=== PATIENT | male | born 1950 | race Caucasian/White ===

== ENCOUNTER → 2017-07-05 10:56 | Outpatient (CLI) | payer MEDICARE, OTHER, SELFPAY ==
[2017-07-05 11:07] LABS: Bacteria 0 SEEN /hpf (None Seen); Red Blood Cells-Urine 0 SEEN /hpf (0-5); White Blood Cells 0 SEEN /hpf (0-5)
--- NOTE | 2017-07-05 11:45 | RAD_ITS ---
STUDY: X-RAY CHEST REASON FOR EXAM: Male, 66 years old. Shortness of breath TECHNIQUE: Frontal and lateral views of the chest were obtained. COMPARISON: Chest radiograph report dated February 25, 2017 FINDINGS: The lungs are hyperinflated. There are no focal airspace opacities. There is no demonstrated pleural abnormality. The cardiac silhouette is normal in size. The mediastinum and hilar regions are unremarkable. Normal visualized pulmonary arteries. Normal visualized aortic arch and descending thoracic aorta. Sternotomy wires are present. There are diffuse degenerative changes of the visualized spine. The visualized ribs, clavicles, and shoulders are unremarkable. There is no demonstrated abnormality of the visualized upper abdomen. RAD/Chest PA and Lateral IMPRESSION: No acute cardiopulmonary abnormalities. Hyperinflation suggests COPD. Electronically Signed: Emily Freire MD at 0:40 EST Tel Direct: [phone], Service support ,
--- NOTE | 2017-07-05 11:55 | RAD_ITS ---
STUDY: X-RAY - ABDOMEN/PELVIS REASON FOR EXAM: Male, 66 years old. Abdominal pain TECHNIQUE: Supine and upright views of the abdomen and pelvis were obtained. COMPARISON: None. FINDINGS: The lung bases are unremarkable. There is an unremarkable bowel gas pattern. There is no demonstrated free abdominal air. There is no demonstrated abnormality of the major organs. The soft tissues are unremarkable. There are moderate degenerative changes in the visualized spine. RAD/Abd Inc Decub and/or Erect IMPRESSION: No acute abnormalities are seen in the abdomen or pelvis. Electronically Signed: Emily Freire MD at 16:57 EST Tel Direct: [phone], Service support ,
[2017-07-05 12:21] LABS: Absolute Lymphocyte Count 2.21 X10^3/ul (0.83-4.51); Absolute Neutrophil Count 3.5 X10^3/uL (2.0-7.7); Basophil# 0.05 X10^3/uL; Basophil% 0.7 % (0-1); Eosinophil# 0.27 X10^3/uL; Hematocrit 42.9 % (40-54); Hemoglobin 14.5 g/dl (13.0-16.5); Lymphocyte # 2.21 X10^3/ul (4.0); Lymphocyte % 32.6 % (19-41); Mean Corp Hgb Conc 33.8 g/gl (32-36); Mean Corpuscular Hgb 31.5 pg (27.0-32.0); Mean Corpuscular Volume 93.1 fL (80-94); Mean Platelet Vol. 10.8 fl (6.2-12.0); Monocyte% 10.3 % (0-10); Neutrophil # 3.52 X10^3/uL (2.7-7.7); Neutrophil % 52.1 % (47-70); Platelet Count 160 K/mm3 (150-450); RBC Distribution Width CV 14.3 % (11.6-14.6); RBC Distribution Width SD 47.3 fl (35.1-43.9); Red Blood Count 4.61 M/mm3 (4.6-6.2); White Blood Count 6.8 K/mm3 (4.4-11.0)
[2017-07-05 12:29] LABS: POSITIVE COUNT NO; POSITIVE DIFFERENTIAL NO; POSITIVE MORPHOLOGY NO
[2017-07-05 12:30] LABS: Color, Urine Yellow (Yellow); Glucose, Dipstick Normal (Normal); Ketone-Dipstick Negative (Negative); Leukocyte Esterase-Dipstick Negative /ul (Negative); Nitrite-Dipstick Negative (Negative); Occult Blood-Urine Negative /ul (Negative); Protein-Dipstick Negative (Negative); Specific Gravity, Urine 1.025 (1.002-1.030); Urine Bilirubin Dipstick Negative (Negative); Urine Clarity Clear (Clear); Urine Urobilinogen Normal (Normal)
[2017-07-05 12:46] LABS: Microalbumin:Creatinine Ratio 97.8 mg/g CRE (<30 mg/g CRE)
[2017-07-05 12:48] LABS: Mucous, Urine 1+ /hpf (<or=2+); Squamous Epithelial Cells - UA 0-5 SEEN /hpf (0-5)
[2017-07-05 13:13] LABS: AST(SGOT) 38 U/L (15-37); Alanine Aminotransfer ALT/SGPT 53 U/L (16-61); Albumin, Serum 3.9 g/dL (3.2-5.0); Alkaline Phosphatase 37 U/L (45-117); Anion Gap 7 (5-15); BUN 18 mg/dL (7-18); BUN/Creat Ratio 15.5 RATIO (10-20); Calcium,Total 8.9 mg/dL (8.5-10.1); Chloride 105 mmol/L (98-107); Creatinine, Serum 1.16 mg/dL (0.70-1.30); EST Glomerular Filtration Rate 67 mL/min (>60); Est Glom Filt Rate - Afr Amer 81 mL/min (>60); Globulin 3.8 g/dL (2.2-4.2); Glucose 87 mg/dL (74-106); Lipase 152 U/L (73-393); Magnesium 2.3 mg/dL (1.6-2.6); Protein, Total 7.7 g/dL (6.4-8.2); Sodium Level 139 mmol/L (136-145); Thyroid Stim Hormone (TSH) 0.66 uIU/mL (0.358-3.74)
== END ==
PROVIDERS: Family Provider Family Medicine; PCP Family Medicine; Visit Provider Family Medicine
DX: R06.02 Shortness of breath (principal); R14.0 Abdominal distension (gaseous); R31.9 Hematuria, unspecified; I10 Essential (primary) hypertension
CPT/HCPCS: 36415; 71046; 74019; 80053; 81001; 82043; 82570; 83690; 83735; 84443; 85025

== ENCOUNTER → 2017-08-19 07:49 | Outpatient (CLI) | payer MEDICARE, OTHER, SELFPAY ==
--- NOTE | 2017-08-19 16:38 | PFTCOMP ---
COMPLETE PULMONARY FUNCTION TEST INTERPRETATION Brief HPI: Patient is a 67 year old male, currently under the care of Dr. Rivera, who presents to [facility] for complete pulmonary function tests secondary to diagnosis of dyspnea. Respiratory therapist reports good effort and reproducible results. Interpretation: Forced expiration spirometry shows no large airways obstructive ventilatory defect with an FEV1 of 94 % predicted. There is no significant bronchodilator response by ATS criteria. Spirograms are of good quality and plateau normally. The respiratory flow volume loop shows a normal pattern. Lung volumes by body plethysmography show a normal total lung capacity at 6.9 L, 105% predicted. All other lung volumes are within normal limits. Diffusion capacity by carbon monoxide is normal at 81% predicted. The airway resistance is normal. No previous pulmonary function tests were available for review. Impression: These pulmonary function tests are grossly within normal limits. Consider methacholine challenge if asthma is a consideration.
== END ==
PROVIDERS: Family Provider Family Medicine; PCP Family Medicine; Visit Provider Family Medicine
DX: R06.02 Shortness of breath (principal)
CPT/HCPCS: 94060; 94726; 94729

== ENCOUNTER → 2019-07-06 07:01 | Outpatient (CLI) | payer MEDICARE, OTHER, SELFPAY ==
[2018-06-10 14:21] VITALS: BMI 31.5
[2019-07-06 07:44] LABS: Hemoglobin 15.3 g/dL (13.0-16.5); Mean Corp Hgb Conc 32.6 g/dL (32-36); Mean Corpuscular Hgb 30.2 pg (27.0-32.0); Mean Corpuscular Volume 92.9 fL (80-94); Mean Platelet Vol. 10.5 fl (6.2-12.0); Platelet Count 157 K/mm3 (150-450); RBC Distribution Width SD 47.4 fl (35.1-43.9); Red Blood Count 5.06 M/mm3 (4.6-6.2); White Blood Count 7.6 K/mm3 (4.4-11.0)
[2019-07-06 08:02] LABS: AST(SGOT) 18 U/L (15-37); Alanine Aminotransfer ALT/SGPT 32 U/L (16-61); Albumin, Serum 3.8 g/dL (3.2-5.0); Alkaline Phosphatase 35 U/L (45-117); Anion Gap 4 (5-15); BUN 26 mg/dL (7-18); Bilirubin, Direct 0.11 mg/dL (0.00-0.30); CPK Total, Creatine Kinase 92 U/L (39-308); Calcium,Total 9.1 mg/dL (8.5-10.1); Chloride 107 mmol/L (98-107); Cholesterol 266 mg/dL (200); EST Glomerular Filtration Rate 59 mL/min (>60); Est Glom Filt Rate - Afr Amer 71 mL/min (>60); Glucose 107 mg/dL (74-106); High Density Lipoprotein 50 mg/dL; Potassium 4.5 mmol/L (3.5-5.1); Protein, Total 7.8 g/dL (6.4-8.2); Sodium Level 140 mmol/L (136-145); Triglycerides 167 mg/dL; Very Low Density Lipoprotein 33 mg/dL (5-40)
[2019-07-06 08:59] LABS: BNP,B-Type NATRIURETIC PEPTIDE 36.8 pg/mL (0-100)
== END ==
PROVIDERS: PCP Family Medicine; Referring Provider Internal Medicine Cardiovascular Disease; Visit Provider Internal Medicine Cardiovascular Disease
DX: R06.09 Other forms of dyspnea (principal); I25.10 Atherosclerotic heart disease of native coronary artery without angina pectoris; E78.5 Hyperlipidemia, unspecified; I10 Essential (primary) hypertension
CPT/HCPCS: 36415; 80048; 80061; 80076; 82550; 83880; 85027

== ENCOUNTER → 2020-02-04 07:39 | Outpatient (CLI) | payer MEDICARE, OTHER, SELFPAY ==
[2020-01-07 13:54] VITALS: BMI 31.5
[2020-02-04 08:24] LABS: Hematocrit 42.2 % (40-54); Hemoglobin 13.7 g/dL (13.0-16.5); Mean Corp Hgb Conc 32.5 g/dL (32-36); Mean Corpuscular Hgb 30.9 pg (27.0-32.0); Mean Corpuscular Volume 95.3 fL (80-94); Mean Platelet Vol. 10.1 fl (6.2-12.0); Platelet Count 183 K/mm3 (150-450); RBC Distribution Width CV 13.2 % (11.6-14.6); RBC Distribution Width SD 45.6 fl (35.1-43.9); Red Blood Count 4.43 M/mm3 (4.6-6.2); White Blood Count 6.1 K/mm3 (4.4-11.0)
[2020-02-04 08:46] LABS: BNP,B-Type NATRIURETIC PEPTIDE 54.3 pg/mL (0-100)
[2020-02-04 08:50] LABS: AST(SGOT) 20 U/L (15-37); Alanine Aminotransfer ALT/SGPT 32 U/L (16-61); Albumin, Serum 3.6 g/dL (3.2-5.0); Alkaline Phosphatase 33 U/L (45-117); Anion Gap 4 (5-15); BUN 19 mg/dL (7-18); BUN/Creat Ratio 16.8 RATIO (10-20); Bilirubin, Direct 0.13 mg/dL (0.00-0.30); CPK Total, Creatine Kinase 91 U/L (39-308); Calcium,Total 9.3 mg/dL (8.5-10.1); Chloride 107 mmol/L (98-107); Cholesterol 145 mg/dL (200); Creatinine, Serum 1.13 mg/dL (0.70-1.30); EST Glomerular Filtration Rate 69 mL/min (>60); Est Glom Filt Rate - Afr Amer 83 mL/min (>60); Globulin 3.8 g/dL (2.2-4.2); Glucose 91 mg/dL (74-106); High Density Lipoprotein 47 mg/dL; Potassium 4.3 mmol/L (3.5-5.1); Protein, Total 7.4 g/dL (6.4-8.2); Sodium Level 141 mmol/L (136-145); Triglycerides 106 mg/dL; Very Low Density Lipoprotein 21 mg/dL (5-40)
== END ==
PROVIDERS: PCP Family Medicine; Referring Provider Internal Medicine Cardiovascular Disease; Visit Provider Internal Medicine Cardiovascular Disease
DX: I10 Essential (primary) hypertension (principal); I25.10 Atherosclerotic heart disease of native coronary artery without angina pectoris; R06.09 Other forms of dyspnea; E78.5 Hyperlipidemia, unspecified
CPT/HCPCS: 36415; 80048; 80061; 80076; 82550; 83880; 85027

== ENCOUNTER 2020-06-01 14:00 | Outpatient (RCR) | payer MEDICARE, OTHER, SELFPAY ==
[2020-01-07 13:54] VITALS: BMI 31.5
--- NOTE | 2020-03-10 15:49 | HP.PTEVAL ---
Patient's Visit Information BASHIR HIDALGO is a 69 year old M referred to Physical Therapy by Dr. Az Billings, with a diagnosis of Right Shoulder Biceps Tenodesis and RTC Repair 01/20/20. Date of Evaluation: 03/10/20 Physical Therapist: Wihtney Sutton DPT - Visit Plan Frequency: 3x /Week Duration: 3 Weeks Plan: Right RTC Repair with Biceps Tenodesis 01/20/2020- Active and Passive ROM- no strengthening at this time per MD recommendation. HEP Given IE: Postural education, upper trap and levator stretching, table walk aways, elbow flexion/extn active - Subjective Right Shoulder Biceps Tenodesis and RTC Repair 01/20/[address] Billings. He did not have a tramatic tear just wear and tear- the shoulder has been bad for years. In the last 2 weks he has been getting in the hot tub and letting the water float his shoulder to the top of the water into both flexion and abduction. No sling at home. Worst: 6/10 Agg: moving it around Best: 310 Eases: getting in the hot tub and moving it around with the water- is not icing. Describes the pain as stabbing and other times its a dull tooth ache. Upper trap pain is more a little off of sharp and its constant. Sling not in the home. Right hand dominate. Pain is in the anterior shoulder and radiates to the elbow and and up into the upper trap. No N/T but does report that his right thumb bothers him. No blurred vision, dizziness. Has been having a lot of headaches- more since surgery. 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 No problems with finger dexterity- has been squeezing a ball. Sleep: disturbed- couch, bed and chair depends on the night and moves around. PMHx: VT (5 years ago) quadrupe bipass (5 stents- 5 years ago) Meds: Lisinopril, pantoprazole sodium, atorvastatin calciu, Brilinta, Metroprolol. - Objective Posture: FH, RS, increased kyphosis- guarding of the right UE- sling with pillow. Palpation: tender along upper trap, cervical paraspinals, infraspinatus, bicipital groove. Sensation: WNL. Observation: incision healing wells- no s/s of infection. ROM: AROM Flexion: 30 degrees abd: 40 degrees, IR: to belly ER: neutral, Elbow/Wrist: WNL. PROM: Flexion: 110 degreees, Abd: 90 degrees ER: neutral IR: belly. Strength: Plastic Surgery Technician: 40 Elbow: 4/5, Wrist: 5/5 - Goals Goal 1:: Patient will be I with HEP and progression Goal Time Frame: 4-6 Weeks Goal 2:: Patient will demo full AROM of the right shoulder Goal Time Frame: 4-6 Weeks Goal 3:: Patient will maintain proper posture t/o tx session to demo increased scap s/s (as per MD recommendations) Goal Time Frame: 4-6 Weeks Goal 4:: Patient will report no pain for 1 week Goal Time Frame: 4-6 Weeks Goal 5:: Patient will return to all normalized ADL's and work related activities (as per MD recommendations) - Rehabilitation Potential Physical Therapy Diagnosis: Patient presents with hypomobility s/p right shoulder surgery 01/20/2020- he has decreased ROM,strength and muscular endurance leading to poor posture and limiting his ADL's and work related tasks Rehabilitation Potential: Good - Anticipated Interventions Patient/Client Instruction: Educate patient on: Benefits of Fitness Program Therapeutic Exercise to Include: Strength training, Endurance training, Body mechanics, Postural training, Flexibilty training, Neuromotor development, Passive ROM, Active ROM, Dynamic Lumbar Stabilization, Scapular Strength/Stabilization Comment: as allowed by MD For the Purpose of:: To improve muscle performance and motor function Manual Therapy Techniques to Include: Passive ROM, Soft tissue mobilization For the Purpose of:: To increase ROM TENS: Yes Cryotherapy (ice pack, ice massage): Yes Thermo therapy (hot pack): Yes Ultrasound (thermal/non thermal): No Thank you for the opportunity to evaluate your patient. For Medicare and Medicare HMO plans, please review the plan of care and approve it. It will need to be FAXED BACK to us at [phone] for Medicare purposes. For Medicare only, by signing this I certify the plan of care. Please let me know if there are questions or concerns regarding this plan of care. Physician Signature: Date:
--- NOTE | 2020-04-04 17:24 | HP.PTREVAL ---
Dr. Az Billings, DO, It has been my pleasure to treat BASHIR HIDALGO over the last 10 visits for Right Shoulder Biceps Tenodesis and RTC Repair 01/20/20. Please see the progress note below for an update on the physical therapy plan of care! Subjective: Patient reports that he has been pretty sore over the last week- they used the thumper on his shoulder and its been a little better since last session. Pain at this point is on the upper trap and tip of the AC joint. Describes the pain as hard if he moves it wrong and more mild when he gets it rest. Doesn't like him to reach out and go up or lean over on the couch. He has little to no pain when he helps the arm up but when he uses the muscles it bothers him. Goes back to [place] on Saturday. Objective/Function: Posture: FH, RS, increased kyphosis- guarding of the right UE- no sling. Palpation: tender along upper trap, and AC joint. Sensation: WNL. ROM: AROM Flexion: 70 degrees abd: 80 degrees, IR: belt line ER: 30 Elbow/Wrist: WNL. Strength: Isometric shoulder at neutral: 4-/5Elbow: 4+/5, Wrist: 5/5 Plan Plan: Right RTC Repair with Biceps Tenodesis 01/20/2020- Active and Passive ROM- no strengthening at this time per MD recommendation. HEP Given IE: Postural education, upper trap and levator stretching, table walk aways, elbow flexion/extn active Goals Goal 1:: Patient will be I with HEP and progression Goal Time Frame: 4-6 Weeks Goal Progress: Progressing Goal 2:: Patient will demo full AROM of the right shoulder Goal Time Frame: 4-6 Weeks Goal Progress: Progressing Goal 3:: Patient will maintain proper posture t/o tx session to demo increased scap s/s (as per MD recommendations) Goal Time Frame: 4-6 Weeks Goal Progress: Progressing Goal 4:: Patient will report no pain for 1 week Goal Time Frame: 4-6 Weeks Goal Progress: Progressing Goal 5:: Patient will return to all normalized ADL's and work related activities (as per MD recommendations) Goal Progress: Progressing Anticipated Interventions Patient/Client Instruction: Educate patient on: Benefits of Fitness Program Therapeutic Exercise to Include: Strength training, Endurance training, Body mechanics, Postural training, Flexibilty training, Neuromotor development, Passive ROM, Active ROM, Dynamic Lumbar Stabilization, Scapular Strength/Stabilization Comment: as allowed by MD For the Purpose of:: To improve muscle performance and motor function Manual Therapy Techniques to Include: Passive ROM, Soft tissue mobilization For the Purpose of:: To increase ROM TENS: Yes Cryotherapy (ice pack, ice massage): Yes Thermo therapy (hot pack): Yes Ultrasound (thermal/non thermal): No Please do not hesitate to contact me at [phone] by phone or if you have questions or concerns regarding this new plan of care! Sincerely, JEFFERSON JoseT
--- NOTE | 2020-04-27 09:38 | HP.PTREVAL_ITS ---
Dr. Az Billings, DO, It has been my pleasure to treat BASHIR HIDALGO over the last 19 visits for Right Shoulder Biceps Tenodesis and RTC Repair 01/20/20. Please see the progress note below for an update on the physical therapy plan of care! Subjective: Just came from work this morning, not enough to do there, so came in early! Still cannot reach top shelf. Overall doing OK. Doctor was happy with progress at last f/u. Sees again end April. No current precautions. Pain is 2/10 at times, Had a 5/10 yesterday lifting box in front of janusz dn it was heavy. Cannot reach top shelf at home or wrok, thinks it is week. Toss and turn at night quite often. Life pretty normal at home outside of reaching up. Doing everything at work that he needs to do, gets up on footstool to reach to[ shelf. Is R handed. Pulling on band at home. Doing exercises at home with band pulls and ROM daily. Signed up for membership for legs. Not sure what to do for UE. Doing band 2x10 2x/day YTB. Objective/Function: PROM well wFL at 150 flexion and abduction, 75 ext rotation and 60 IR. AROM Worse against gravity at 90 felxion and abd limited by pain anterior shoulder.65 ect rotation and L5 IR. Strength is still weak at 3- flexiona dn abd, 3+ ext rotation adn 4-IR consistent with delayed strength recommended by doctor. Overall needs to be stronger and take care with overdoing work/home activities. Appropriate to continue for strength with fair prognosis. Plan Plan: 3x/week for 3 weeks for. 1. ensure AROM improving. 2. Progress RC and scap strength. Give rotations via HEP. 3. 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 Goals Goal 1:: Patient will be I with HEP and progression Goal Time Frame: 4-6 Weeks Goal Progress: initial, not gym,a pprop. Goal 2:: Patient will demo full AROM of the right shoulder Goal Time Frame: 4-6 Weeks Goal Progress: Progressing, approp Goal 3:: Patient will maintain proper posture t/o tx session to demo increased scap s/s (as per MD recommendations) Goal Time Frame: 4-6 Weeks Goal Progress: Goal Met Goal 4:: Patient will report no pain for 1 week Goal Time Frame: 4-6 Weeks Goal Progress: -07/06,a pprop Goal 5:: Patient will return to all normalized ADL's and work related activities (as per MD recommendations) Goal Progress: not reach OH. Goal 6:: I approp gym based ex program without increased pain to help with AROM and function OH. Goal Time Frame: 2-4 Weeks Goal Progress: NEW GOAL Anticipated Interventions Patient/Client Instruction: Educate patient on: Benefits of Fitness Program Therapeutic Exercise to Include: Strength training, Endurance training, Body mechanics, Postural training, Flexibilty training, Neuromotor development, Pa ssive ROM, Active ROM, Dynamic Lumbar Stabilization, Scapular Strength/Stabilization Comment: as allowed by MD For the Purpose of:: To improve muscle performance and motor function Manual Therapy Techniques to Include: Passive ROM, Soft tissue mobilization For the Purpose of:: To increase ROM TENS: Yes Cryotherapy (ice pack, ice massage): Yes Thermo therapy (hot pack): Yes Ultrasound (thermal/non thermal): No Please do not hesitate to contact me at [phone] by phone or if you have questions or concerns regarding this new plan of care! Sincerely, Yanick Juarez, DPT, OCS, CSCS
--- NOTE | 2020-06-01 14:05 | HP.PTDCSUM ---
It has been my pleasure to treat BASHIR HIDALGO referred by Dr. Az Billings DO, with the diagnosis of Right Shoulder Biceps Tenodesis and RTC Repair 01/20/20 for a total of 30 visit(s). Discharge Date: Please see the following information for a summary of their discharge status. Subjective: Patient reports that the shoulder is working a lot better than it should. He needs his shoulder to quit hurting so he can sleep. He is also challenged to lift overhead at work but that has improved a little bit. Patient reports that he can do this independently. He goes back to the surgeon for his arm on Saturday. He has numbness in his fingers Right shldr Pain Intensity (Out of 10): 2 % Improvement: 80 Objective/Function: Posture: good throughout session. Palpation: not tender to palpation. AROM: Flexion: 150 degrees Abd: 90 degrees limited by pain anterior shoulder, ER: 65 degrees IR: L3. Strength: Flexion: 4-/5 Abd: 4- ext rotation IR:4/5 Elbow: 4+/5 Goal 1:: Patient will be I with HEP and progression Goal Progress: initial, not gym,a pprop. Goal 2:: Patient will demo full AROM of the right shoulder Goal Progress: Progressing, approp Goal 3:: Patient will maintain proper posture t/o tx session to demo increased scap s/s (as per MD recommendations) Goal Progress: Goal Met Goal 4:: Patient will report no pain for 1 week Goal Progress: -07/06,a pprop Goal 5:: Patient will return to all normalized ADL's and work related activities (as per MD recommendations) Goal Progress: not reach OH. Goal 6:: I approp gym based ex program without increased pain to help with AROM and function OH. Goal Progress: NEW GOAL Plan: Discharge to indpendent home exercise program in the gym with health and wellness. If there are questions or concerns regarding this patient's physical therapy, please feel free to call me at [phone]. Thank you for the referral of this patient. Sincerely, JEFFERSON JoseT
== END 2020-06-01 19:00 | disposition home or self-care (01) ==
LOC: PT 14:00
PROVIDERS: PCP Family Medicine; Referring Provider Orthopaedic Surgery; Visit Provider Orthopaedic Surgery
DX: Z47.89 Encounter for other orthopedic aftercare (principal); S43.421D Sprain of right rotator cuff capsule, subsequent encounter; S43.431D Superior glenoid labrum lesion of right shoulder, subsequent encounter; M75.41 Impingement syndrome of right shoulder; M19.011 Primary osteoarthritis, right shoulder; M94.211 Chondromalacia, right shoulder
CPT/HCPCS: 97110; 97140; 97161; 97164

== ENCOUNTER → 2020-08-22 06:25 | Outpatient (CLI) | payer MEDICARE, OTHER, SELFPAY ==
[2020-03-21 16:02] VITALS: BMI 32.1
[2020-08-22 07:01] LABS: Hematocrit 45.5 % (40-54); Hemoglobin 14.4 g/dL (13.0-16.5); Mean Corp Hgb Conc 31.6 g/dL (32-36); Mean Corpuscular Hgb 29.5 pg (27.0-32.0); Mean Corpuscular Volume 93.2 fL (80-94); Mean Platelet Vol. 10.5 fl (6.2-12.0); Platelet Count 150 K/mm3 (150-450); RBC Distribution Width CV 13.4 % (11.6-14.6); Red Blood Count 4.88 M/mm3 (4.6-6.2); White Blood Count 6.8 K/mm3 (4.4-11.0)
[2020-08-22 07:32] LABS: AST(SGOT) 23 U/L (15-37); Alanine Aminotransfer ALT/SGPT 33 U/L (16-61); Albumin, Serum 3.6 g/dL (3.2-5.0); Alkaline Phosphatase 37 U/L (45-117); Anion Gap 5 (5-15); BUN 27 mg/dL (7-18); BUN/Creat Ratio 23.3 RATIO (10-20); Bilirubin, Direct 0.13 mg/dL (0.00-0.30); CPK Total, Creatine Kinase 191 U/L (39-308); Chloride 108 mmol/L (98-107); Cholesterol 158 mg/dL (200); Creatinine, Serum 1.16 mg/dL (0.70-1.30); EST Glomerular Filtration Rate 67 mL/min (>60); Est Glom Filt Rate - Afr Amer 81 mL/min (>60); Globulin 3.6 g/dL (2.2-4.2); Glucose 123 mg/dL (74-106); High Density Lipoprotein 44 mg/dL; Potassium 4.6 mmol/L (3.5-5.1); Protein, Total 7.2 g/dL (6.4-8.2); Sodium Level 140 mmol/L (136-145); Triglycerides 88 mg/dL; Very Low Density Lipoprotein 18 mg/dL (5-40)
[2020-08-22 08:02] LABS: BNP,B-Type NATRIURETIC PEPTIDE 43.8 pg/mL (0-100)
== END ==
PROVIDERS: PCP Family Medicine; Referring Provider Internal Medicine Cardiovascular Disease; Visit Provider Internal Medicine Cardiovascular Disease
DX: D69.6 Thrombocytopenia, unspecified (principal); I50.22 Chronic systolic (congestive) heart failure; I11.0 Hypertensive heart disease with heart failure; I25.10 Atherosclerotic heart disease of native coronary artery without angina pectoris; Z95.5 Presence of coronary angioplasty implant and graft; R06.09 Other forms of dyspnea; E78.5 Hyperlipidemia, unspecified
CPT/HCPCS: 36415; 80048; 80061; 80076; 82550; 83880; 85027

== ENCOUNTER → 2020-11-16 05:31 | Outpatient (CLI) | payer MEDICARE, OTHER, SELFPAY ==
[2020-03-21 16:02] VITALS: BMI 32.1
[2020-11-16 07:41] LABS: AST(SGOT) 26 U/L (15-37); Alanine Aminotransfer ALT/SGPT 33 U/L (16-61); Albumin, Serum 3.4 g/dL (3.2-5.0); Alkaline Phosphatase 45 U/L (45-117); CPK Total, Creatine Kinase 171 U/L (39-308); Cholesterol 160 mg/dL (200); Globulin 3.6 g/dL (2.2-4.2); High Density Lipoprotein 40 mg/dL; Triglycerides 199 mg/dL; Very Low Density Lipoprotein 40 mg/dL (5-40)
== END ==
PROVIDERS: PCP Family Medicine
DX: I25.10 Atherosclerotic heart disease of native coronary artery without angina pectoris (principal); E78.5 Hyperlipidemia, unspecified; E78.00 Pure hypercholesterolemia, unspecified
CPT/HCPCS: 36415; 80061; 80076; 82550

== ENCOUNTER 2020-11-22 23:53 | Emergency (ER) | payer MEDICARE, OTHER, SELFPAY ==
[2020-03-21 16:02] VITALS: BMI 32.1
[2020-11-22 23:53] VITALS: BP 132/81; PULSE 71; RESP 15; TEMP 36.6; O2SAT 100; BMI 31.5
--- NOTE | 2020-11-23 00:55 | RAD_ITS ---
STUDY: X-RAY - LEFT FOOT CLINICAL: Male, 70 years old. Injury/Pain TECHNIQUE: 3 view(s) of the foot. COMPARISON: None. FINDINGS: Plantar calcaneal spur and enthesophyte at the Achilles tendon insertion site. Otherwise normal talus, calcaneus, and tarsal bones. Normal visualized subtalar, talonavicular, calcaneocuboid, tarsal and tarsometatarsal articulations. Normal metatarsi. Normal metatarsophalangeal joint of the great toe. Normal tibial and fibular sesamoid bones. Normal interphalangeal joint of the great toe. Normal phalanges of the great toe. Normal second through fifth metatarsophalangeal joints. There is an oblique fracture involving the proximal phalanx of the fourth toe. Possible second fracture involving the proximal phalanx of the fifth toe versus artifact. The soft tissue structures are unremarkable. RAD/Foot min 3 Views IMPRESSION: Small phalangeal fracture at the level of the fourth toe. Possible nondisplaced fractures of the proximal phalanx of the fifth 2. No dislocation. Electronically Signed: Daniella Wright MD at 1:32 EDT , Service support ,
--- NOTE | 2020-11-23 00:55 | ED.VIS.FALL ---
HPI HPI - Fall History of Present Illness Chief Complaint: Fall Narrative Narrative: Patient injured his left foot. He stated he was going down some steps and his daughter was coming up. There was a bat in the house. He tripped and struck his left foot on the step. He fell backwards as well. Suffered a small bruise to his left elbow and right lower back. Did not hit his head. He is on Brilinta. Stated wanted to get his foot checked out. Has tenderness in the lateral foot as well as his diffuse toes. No home treatment. [facility] Medical History (Updated 11/23/20 @ 01:[address] Jeremy Aguilar MD) Back problem Carpal tunnel syndrome Cataracts, bilateral High cholesterol Hypertension Osteoarthritis Shoulder pain Home Medications aspirin 81 mg chewable tablet 81 mg PO DAILY 06/10/18 [History Last Taken Unknown] lisinopril 20 mg tablet 20 mg PO DAILY 06/10/18 [History Last Taken Unknown] ticagrelor 90 mg tablet 90 mg PO BID 06/10/18 [History Last Taken Unknown] metoprolol tartrate 50 mg tablet 25 mg PO BID tab 06/11/18 [History Last Taken Unknown] atorvastatin 40 mg tablet 80 mg PO DAILY tablet 09/16/20 [History Last Taken Unknown] pantoprazole 40 mg PO DAILY 11/23/20 [History Last Taken Unknown] Allergy/AdvReac Type Severity Reaction Status Date / Time prednisone Allergy Intermediate Flushing Verified 11/22/20 23:53 Family History Father Cancer Mother Hypertension Surgical History History of heart artery stent History of quadruple bypass History of right knee surgery History of shoulder surgery Social History Smoking Status: Former smoker alcohol intake: never substance use type: does not use what type of physical activity do you participate in: none ROS ROS ED ROS Narrative ROS General: Denies fever, chills, sweats Eyes: Denies visual changes, blurred vision, double vision ENT: Denies ear pain, rhinorrhea, sore throat Cardiovascular: Denies chest pain, palpitations, heart racing Respiratory: Denies dyspnea, cough, sputum, dyspnea on exertion, orthopnea,PND GI: Denies abdominal pain, nausea, vomiting, diarrhea, constipation, melena : Denies dysuria, hematuria, frequency Musculoskeletal: See HPI Skin: Denies rash, abscess, Neuro: Denies headache, weakness, paresthesia Psych: Denies depression, anxiety Endo: Denies polyuria, polydipsia, polyphagia Heme: Denies easy bruising, easy bleeding, lymphadenopathy Allergy: Denies hives, swelling EXAM Physical Exam Narrative Exam Narrative: Vital signs reviewed General: Well-nourished well-developed Head: Normocephalic atraumatic Eyes: Pupils equal round and reactive to light extraocular movements intact ENT: TMs clear no hemotympanum no trauma Neck: Nontender full range of motion Cardiovascular: Regular rate rhythm no murmurs normal S1-S2 Respiratory: No distress clear to auscultation bilaterally chest nontender Abdomen: Soft nontender nondistended normal bowel sounds no masses Back: Mild tenderness right lower back soft tissue. Normal range of motion. No CVA tenderness Extremities: Tender palpation left lateral metatarsal. Tender palpation diffuse toes. Small bruise to his third dorsal toe. Decreased range of motion secondary to pain. Small bruise to left inner elbow. Normal range of motion without pain. Skin: Normal color no trauma Neuro alert oriented cranial nerves II through XII intact normal strength sensation reflexes Const Vital Signs: 11/22/20 23:53 11/23/20 00:09 Temperature 97.8 F Temperature Source Temporal Pulse Rate 71 Respiratory Rate 15 Respiratory Effort Normal Non-Labored Blood Pressure 132/81 H Blood Pressure Mean 98 Pulse Ox 100 Oxygen Delivery Method Room Air MDM MDM MDM Narrative Medical decision making narrative: Declined pain medicine. Resting comfortably. I do not feel he needs imaging of his elbow or back. Imaging of the left foot obtained. X-ray shows a fracture to his fourth toe. Questionable fracture to the fifth however feel this is shadowing. This is by my interpretation. We will follow-up with podiatry. Gianni taped and given a postop shoe. Radiography Diagnostic Testing: Radiology Impression Foot X-Ray 11/23/20 00:55 IMPRESSION: Small phalangeal fracture at the level of the fourth toe. Possible nondisplaced fractures of the proximal phalanx of the fifth 2. No dislocation. Electronically Signed: Daniella Wright MD at 1:32 EDT , Service support , Discharge Plan Triage Chief Complaint: Fall ED Provider: Jeremy Aguialr Dx/Rx/DC Orders Clinical Impression: Closed fracture of toe Instructions: Fx Finger Toe Prescriptions: No Action lisinopril 20 mg tablet 20 mg PO DAILY RF: 0 aspirin [Etienne Chewable Aspirin] 81 mg tablet,chewable 81 mg PO DAILY RF: 0 Brilinta 90 mg tablet 90 mg PO BID RF: 0 metoprolol tartrate [Lopressor] 50 mg tablet 25 mg PO BID RF: 0 atorvastatin 40 mg tablet 80 mg PO DAILY RF: 0 pantoprazole 40 mg tablet,delayed release (DR/EC) 40 mg PO DAILY RF: 0 Primary Care Provider: Wayne Arteaga Referrals: Wayne Arteaga, [Primary Care Provider] - Jr Montanez DPM [STAFF PHYSICIAN] - Disposition Disposition: Home, Self Care
[2020-11-23] MEDS: HYDROcodone Bitartrate/Apap 5/325 Tablet PO (02:33)
[2020-11-23 02:42] VITALS: PULSE 78; RESP 16; O2SAT 98
== END 2020-11-23 02:44 | disposition home or self-care (01) ==
LOC: ED 11-23 01:47
PROVIDERS: Emergency Provider Emergency Medicine; PCP Family Medicine
DX: S92.502A Displaced unspecified fracture of left lesser toe(s), initial encounter for closed fracture (principal); S50.02XA Contusion of left elbow, initial encounter; S30.0XXA Contusion of lower back and pelvis, initial encounter; W10.9XXA Fall (on) (from) unspecified stairs and steps, initial encounter; Y93.9 Activity, unspecified; Y92.9 Unspecified place or not applicable; I10 Essential (primary) hypertension; H26.9 Unspecified cataract; E78.00 Pure hypercholesterolemia, unspecified; G56.03 Carpal tunnel syndrome, bilateral upper limbs; M19.90 Unspecified osteoarthritis, unspecified site; Z79.82 Long term (current) use of aspirin; Z79.899 Other long term (current) drug therapy; Z87.891 Personal history of nicotine dependence
CPT/HCPCS: 73630; 99283

== ENCOUNTER 2021-03-29 14:30 | Outpatient (RCR) | payer MEDICARE, OTHER, SELFPAY ==
--- NOTE | 2021-03-03 12:30 | HP.OTEVAL_ITS ---
Patient's Visit Information BASHIR HIDALGO is a 70 year old M, referred to Occupational Therapy by Dr. Az Billings DO, with a diagnosis of right CTS. Date of Evaluation: 03/02/21 Occupational Therapist: Luisa Patrick, FLO/Naa, CHT - Subjective This 70 year old male was seen for OT eval with dx of CTS-. pt had sx 01/25/21, pt states incision is very tender and when he tries to grab something he gets pain in his thumb. pt is right handed. several months of numbness prior to having CTR. pt works at [employer] working about 40 hours a week and would like to return to his PLOF. - Pain right hand 4 Pain Intensity Range: 3, 7 - ROM Wrist: right 45/40 left 70/65 ROM Comments: pt demo full composite fist of digits - Strength Personalized Living Manager Nurse: right 30# left 70# Lateral Pinch: right 6# left 12# Tripod Pinch: right 4# with pain left 12# - Sensation Thumb: right 3.84 left 3.22 Index: right 3.84 left 3.22 Middle: right 3.84 left 3.22 Ring: right 3.22 left 2.83 Little: right 3.22 left 2.83 - Quick DASH-Disab of Arm,Shoulder& Hand Quick DASH Score: 63.3325 - Goals Goal:: pt will demo a increase in right vice president business development strength by 30# or greater to return pt to PLOF by d/c Goal:: Pt will report pain no greater than 1/10 with use of affected hand with BADLs and IADLs by d/c. Goal:: Pt will demo understanding of scar mtg. by end of 2nd session to increase tissue extensibility to limit scar adhesions and allow full tendons function by d/c. Pt will demo a decrease is scar sensitivity to tolerate wearing long sleeve shirts by D/c. - Rehabilitation General Assessment: pt is 5 weeks and 1 day s/p from CTR of right hand- pt demo with weakness and scar sensitivity limiting functional use of right hand with ALDs and IADLs. pt would benefit from skilled OT 2x 4 weeks. Today therapist did remove residual scab and this reveled a embedded stich- therapy will cont. with removal as able. Therapist ed. pt on scar desensitization and ROM. Pt demo understanding and agree to POC. Rehabilitation Potential: Good - Anticipated Interventions Strengthening, Scar Care, Triggerpoint Release, Desensitization, Modalities, Joint Protection/Energy Conservation, Ergonomic Education, ADL Training, Education re assistive Equipment, Education re Diagnosis, Home Program - Visit Plan Frequency: 2-3x /Week Duration: 4 Weeks TEXT: Thank you for the opportunity to evaluate your patient. For Medicare and Medicare HMO plans, please review the plan of care and approve it. It will need to be FAXED BACK to us at [phone] for Medicare purposes. Please let me know if there are questions or concerns regarding this plan of care. Physician Signature: Date:
--- NOTE | 2021-03-29 14:46 | HP.OTDCSUM_ITS ---
It has been my pleasure to treat BASHIR HIDALGO under orders from Dr. Az Billings DO, for the diagnosis of right CTS for a total of 7 visit(s). Please see the following information for a summary of their discharge status. % Improvement: 85 Objective/Function: right wrist ROM 75/60. right refrigerating technician strength 50# increase from 30#. right lateral pinch 26# increase from 6#. right tripod pinch 22# increase from 4#. pt has made good gains in ROM and strength - pt has returned to work and states he is performing his tasks without difficulty. pt also reports he is sleeping without interruption from his hand. Patient Goals: Regain Strength, Decrease Pain, Return to Work Goal:: pt will demo a increase in right refrigerating technician strength by 30# or greater to return pt to PLOF by d/c Goal:: Pt will report pain no greater than 1/10 with use of affected hand with BADLs and IADLs by d/c. Goal:: Pt will demo understanding of scar mtg. by end of 2nd session to increase tissue extensibility to limit scar adhesions and allow full tendons function by d/c. Pt will demo a decrease is scar sensitivity to tolerate wearing long sleeve shirts by D/c. Plan: D/C Discharge Comments: pt was seen 7 OT visits that worked with scar desensitization, refrigerating technician and pinch strength. pt has make great gains in is ROM and strength. pt reports he has returned to working 7-8 hours a day. pt is happy he had sx done- pt demo understanding of recovery of sensation can take up to a year. If there are questions or concerns regarding this patient's occupational therapy, please fell free to call me at [phone]. Thank you for the referral of this patient. Sincerely, Luisa Patrick, OTR/L, CHT
== END 2021-03-29 14:51 | disposition home or self-care (01) ==
LOC: OT 14:30
PROVIDERS: PCP Family Medicine; Referring Provider Orthopaedic Surgery; Visit Provider Orthopaedic Surgery
DX: G56.01 Carpal tunnel syndrome, right upper limb (principal); Z47.89 Encounter for other orthopedic aftercare
CPT/HCPCS: 97035; 97110; 97165; 97530

== ENCOUNTER → 2021-05-18 | Outpatient (CLI) | payer MEDICARE, OTHER, SELFPAY | END | disposition home or self-care (01) | LOC: LABSPEC 09:28 | PROVIDERS: PCP Family Medicine; Referring Provider Physician Assistant; Visit Provider Physician Assistant | DX: R50.9 Fever, unspecified (principal) | CPT/HCPCS: 87635; U0005; U0003 ==

== ENCOUNTER → 2021-09-26 | Outpatient (CLI) | payer MEDICARE, OTHER, SELFPAY ==
--- NOTE | 2021-09-26 12:13 | CDU_ITS ---
Reason For Study: Carotid stenosis Rt. Velocities/BP Lt. Velocities/BP Prox CCA 57.8/10.8 cm/sec. Prox CCA 68.4/13.5 cm/sec. Mid CCA 60.8/11.3 cm/sec. Mid CCA 61.8/13.5 cm/sec. Dist CCA 59.7/12.4 cm/sec. Dist CCA 55.2/14.6 cm/sec. Prox ICA 87.6/15.1 cm/sec. Prox ICA 38.6/14.2 cm/sec. Mid ICA 47/16.3 cm/sec. Mid ICA 53.5/18.6 cm/sec. Dist ICA 55.6/16.3 cm/sec. Dist ICA 50.9/18.6 cm/sec. Rt. ICA/CCA = 1.48. Lt. ICA/CCA = 0.87. Prox ECA 102.3/11.4 cm/sec. Prox ECA 88.2/13.5 cm/sec. Rt. Vert. 28.2/10.7 cm/sec. Lt. Vert. 48.2/15.1 cm/sec. Right Extracranial There is intimal thickening but no significant atherosclerotic plaque noted in the right common carotid artery. There is heterogeneous, irregular atherosclerotic plaque noted in the right internal carotid artery. There is intimal thickening but no significant atherosclerotic plaque noted in the right external carotid artery. Antegrade flow is noted in the right vertebral artery. Left Extracranial There is homogeneous, smooth atherosclerotic plaque noted in the left common carotid artery. There is heterogeneous, irregular atherosclerotic plaque noted in the left internal carotid artery. There is intimal thickening but no significant atherosclerotic plaque noted in the left external carotid artery. Antegrade flow is noted in the left vertebral artery. Procedure Carotid Duplex 56807. This is a Carotid Duplex examination using B-mode, color flow and specral Doppler. Exam performed in department. VL/Carotid Duplex Ultrasound Interpretation Summary Mild (<50%) stenosis right extracranial internal carotid. Mild (<50%) stenosis left extracranial internal carotid. Flow within the vertebral arteries is antegrade bilaterally. Ordering Physician: Jon Roldan Referring Physician: Kevin Arteaga M.D. Performed By: Shama Ruiz RVT
== END | disposition home or self-care (01) ==
PROVIDERS: PCP Family Medicine; Referring Provider Ophthalmology; Visit Provider Ophthalmology
DX: H53.121 Transient visual loss, right eye (principal); I65.29 Occlusion and stenosis of unspecified carotid artery
CPT/HCPCS: 93880

== ENCOUNTER → 2021-10-05 | Outpatient (CLI) | payer MEDICARE, OTHER, SELFPAY ==
--- NOTE | 2021-10-05 11:26 | CT_ITS ---
STUDY: CT ABDOMEN AND PELVIS WITH CONTRAST REASON FOR EXAM: Male, 71 years old. One-week history of gross hematuria and right flank pain. RADIATION DOSAGE (If Supplied By Facility): CTDIvol = ( 20.91 ) mGy, DLP = ( 2246.60 ) mGycm TECHNIQUE: Transaxial images were obtained from the dome of the diaphragm to the symphysis pubis without oral contrast. IV 100mL Isovue-300 was administered. Sagittal and coronal images were reconstructed. Individualized dose optimization techniques were used for this CT. COMPARISON: None. FINDINGS: The visualized lung bases are unremarkable. Coronary artery calcification. There is decreased attenuation of the liver consistent with steatosis. Normal gallbladder and extrahepatic biliary system. Normal spleen. Normal pancreas. Normal bilateral adrenal glands. 1.8 cm cyst in the lower pole of the right kidney. 2.9 cm cyst in the upper pole of the left kidney. 1.2 cm cyst in the anterior lateral aspect of the midpole of the left kidney. Normal visualized stomach. Normal small intestine. There are multiple colonic diverticula consistent with diverticulosis. The appendix is visualized and appears normal. There is scattered atherosclerotic calcification of the abdominal aorta, without a demonstrated aneurysm. Normal inferior vena cava. Normal retroperitoneum. There is a 1.3 cm x 1.9 cm nodular mass at the base of the bladder more prominent on the right-sided of the midline. There is also evidence of focal mural thickening along the left lateral bladder wall. Correlation with endoscopy is recommended to rule out bladder carcinoma. There is enlargement of the prostate gland. The prostate measures 6 cm x 3.9 cm. This causes indentation at the bladder base. Normal abdominal wall. Disc space narrowing and spondylosis at the L4-L5 and L5-S1 levels. CT/Abdomen/Pelvis WITH Contrast IMPRESSION: 1.3 cm x 1.9 cm nodular mass at the base of the bladder as well as focal mural thickening along the left lateral wall. Correlation with endoscopy is recommended for further evaluation. Small bilateral renal cysts. Prostatic enlargement. Electronically Signed: Baljit Santoro MD at 12:13 EDT ,
[2021-10-05 11:41] LABS: CREATININE FINGERSTICK 0.9 mg/dL (0.70-1.30); EGFR FINGERSTICK > 60.0000 mL/min (>60)
== END | disposition home or self-care (01) ==
PROVIDERS: PCP Family Medicine; Visit Provider Nurse Practitioner Family
DX: R31.0 Gross hematuria (principal); R10.9 Unspecified abdominal pain; M53.9 Dorsopathy, unspecified; R73.9 Hyperglycemia, unspecified; G56.00 Carpal tunnel syndrome, unspecified upper limb; I10 Essential (primary) hypertension; Z12.5 Encounter for screening for malignant neoplasm of prostate
CPT/HCPCS: 36415; 74177; 80053; 80061; 81001; 83036; 84153; 84443; 85025; 87086; Q9967; G0103

== ENCOUNTER → 2021-10-05 | Outpatient (CLI) | payer MEDICARE, OTHER, SELFPAY ==
[2021-10-05 11:00] LABS: Mucous, Urine 0 SEEN /hpf (<or=2+)
[2021-10-05 12:19] LABS: Absolute Lymphocyte Count 1.93 X10^3/uL (0.83-4.51); Absolute Neutrophil Count 4.6 X10^3/uL (2.0-7.7); Basophil# 0.04 X10^3/uL; Basophil% 0.5 % (0-1); Eosinophil# 0.24 X10^3/uL; Eosinophils% 3.2 % (0-5); Hematocrit 40.5 % (40-54); Hemoglobin 13.1 g/dL (13.0-16.5); Lymphocyte # 1.93 X10^3/ul (0.83-4.51); Lymphocyte % 25.6 % (19-41); Mean Corp Hgb Conc 32.3 g/dL (32-36); Mean Corpuscular Hgb 30.8 pg (27.0-32.0); Mean Corpuscular Volume 95.3 fL (80-94); Mean Platelet Vol. 10.6 fl (6.2-12.0); Monocyte# 0.75 X10^3/uL; Monocyte% 9.9 % (0-10); NRBC Flagged by Analyzer 0 % (0-5); Neutrophil # 4.55 X10^3/uL (2.7-7.7); Neutrophil % 60.3 % (47-70); Platelet Count 166 K/mm3 (150-450); RBC Distribution Width CV 13.8 % (11.6-14.6); RBC Distribution Width SD 48.2 fl (35.1-43.9); Red Blood Count 4.25 M/mm3 (4.6-6.2); White Blood Count 7.6 K/mm3 (4.4-11.0)
[2021-10-05 12:27] LABS: Color, Urine Brown (Yellow); Glucose, Dipstick Normal (Normal); Ketone-Dipstick 5 mg/dl (Negative); Leukocyte Esterase-Dipstick 25 /ul (Negative); Nitrite-Dipstick Negative (Negative); Occult Blood-Urine 250 /ul (Negative); Protein-Dipstick 500 mg/dl (Negative); Urine Bilirubin Dipstick Negative (Negative); Urine Clarity Cloudy (Clear); Urine Urobilinogen Normal (Normal); Urine pH 6.5 (5.0 - 8.0)
[2021-10-05 12:33] LABS: Red Blood Cells-Urine > 100 SEEN /hpf (0-5); White Blood Cells 5-10 SEEN /hpf (0-5)
[2021-10-05 12:34] LABS: Bacteria 1+ /hpf (None Seen); Squamous Epithelial Cells - UA 0-5 SEEN /hpf (0-5)
[2021-10-05 12:50] LABS: ALB/GLOB Ratio 0.9 RATIO (0.9-2.4); AST(SGOT) 28 U/L (15-37); Alanine Aminotransfer ALT/SGPT 46 U/L (16-61); Albumin, Serum 3.4 g/dL (3.2-5.0); Alkaline Phosphatase 36 U/L (45-117); Anion Gap 4 (5-15); BUN 25 mg/dL (7-18); BUN/Creat Ratio 23.6 RATIO (10-20); Calcium,Total 9.1 mg/dL (8.5-10.1); Chloride 108 mmol/L (98-107); Cholesterol 111 mg/dL (200); Creatinine, Serum 1.06 mg/dL (0.70-1.30); EST Glomerular Filtration Rate 74 mL/min (>60); Est Glom Filt Rate - Afr Amer 89 mL/min (>60); Globulin 3.7 g/dL (2.2-4.2); Glucose 125 mg/dL (74-106); High Density Lipoprotein 38 mg/dL; Potassium 4.4 mmol/L (3.5-5.1); Protein, Total 7.1 g/dL (6.4-8.2); Sodium Level 138 mmol/L (136-145); Thyroid Stim Hormone (TSH) 0.43 uIU/mL (0.358-3.74); Triglycerides 132 mg/dL; Very Low Density Lipoprotein 26 mg/dL (5-40)
[2021-10-05 12:52] LABS: Hemoglobin A1c 5.7 % (3.8-5.6)
== END | disposition home or self-care (01) ==
LOC: BIMLAB 10:58
PROVIDERS: PCP Family Medicine; Referring Provider Nurse Practitioner Family; Visit Provider Nurse Practitioner Family
DX: R31.9 Hematuria, unspecified (principal); M53.9 Dorsopathy, unspecified; I10 Essential (primary) hypertension; R73.9 Hyperglycemia, unspecified; Z12.5 Encounter for screening for malignant neoplasm of prostate
CPT/HCPCS: 36415; 80053; 80061; 81001; 83036; 84153; 84443; 85025; 87086; G0103

== ENCOUNTER 2021-10-10 12:14 | Inpatient (IN) | payer MEDICARE, OTHER, SELFPAY ==
[2021-10-10] VITALS (9 sets, daily range): BP systolic 103–122; BP diastolic 66–86; PULSE 68–87; RESP 14–18; TEMP 36.2–36.6; O2SAT 97–99; BMI 34.4; BMI 32.0
--- NOTE | 2021-10-10 12:41 | EX.ED.GUMALE ---
HPI History of Present Illness Chief Complaint: Complaint Detail of Chief Complaint: Urinary retention and hematuria Informant: patient Narrative Narrative: Patient presents to the emergency department complaint of not being able to void since this morning. Patient states that he has had blood in his urine for about 2 weeks and has been passing clots for about a week. Patient saw his primary care physician and has a referral to urology on October 26. He does describe some dysuria. He denies fever. He denies nausea or vomiting. Patient is on Brilinta. Patient also takes aspirin. He denies any pain in his back. Prior similar symptoms: No [facility] Medical History (Updated 10/10/21 @ 14:[address] Thania De Los Santos, DO) Back problem Carpal tunnel syndrome Cataracts, bilateral Hematuria High cholesterol Hypertension Mass of bladder Osteoarthritis Right flank pain Shoulder pain Home Medications aspirin 81 mg chewable tablet 81 mg PO DAILY 06/10/18 [History Last Taken Unknown] lisinopril 20 mg tablet 20 mg PO DAILY 06/10/18 [History Last Taken Unknown] ticagrelor 90 mg tablet 90 mg PO BID 06/10/18 [History Last Taken Unknown] metoprolol tartrate 50 mg tablet 25 mg PO BID tab 06/11/18 [History Last Taken Unknown] atorvastatin 40 mg tablet 80 mg PO DAILY tablet 09/16/20 [History Last Taken Unknown] ezetimibe 10 mg tablet 10 mg PO DAILY 10/05/21 [History Last Taken Unknown] isosorbide mononitrate 60 mg tablet,extended release 24 hr 60 mg PO DAILY 10/05/21 [History Last Taken Unknown] mecobalamin (vitamin B12) 5,000 mcg lozenge 5,000 mcg PO DAILY 10/05/21 [History Last Taken Unknown] nitroglycerin 0.4 mg sublingual tablet 0.4 mg SUBLINGUAL Q5M PRN 10/05/21 [History Last Taken Unknown] pantoprazole 40 mg tablet,delayed release 40 mg PO DAILY #90 tab 10/05/21 [Rx Last Taken Unknown] tamsulosin 0.4 mg capsule 0.4 mg PO QHS #30 cap 10/05/21 [Rx Last Taken Unknown] Allergy/AdvReac Type Severity Reaction Status Date / Time prednisone Allergy Intermediate Flushing Verified 10/10/21 12:16 Family History Father Cancer Mother Hypertension Surgical History History of heart artery stent History of quadruple bypass History of right knee surgery History of shoulder surgery Social History Smoking Status: Former smoker alcohol intake: never substance use type: does not use what type of physical activity do you participate in: none ROS ROS ED Constitutional Constitutional ED: Reports systems reviewed and no addt'l complaints, except as documented; Denies body ache(s), change in weight or chills Eyes Eyes: Denies acute decrease in peripheral vision, change in vision, double vision or loss of vision ENT ENT ED: Reports none; Denies ear pain, lip swelling, loss taste/smell, neck pain, otalgia or sore throat Cardiovascular Cardiovascular: Reports none; Denies abdominal pain, chest pain with activity, leg edema, lightheadedness, palpitations, rapid heart rate or syncope Respiratory/Chest Respiratory/Chest: Reports none; Denies change in mental status, dry cough, dyspnea, hemoptysis, shortness of breath at rest or shortness of breath with exertion Gastrointestinal Gastrointestinal: Reports none and abdominal pain; Denies change in stool character, diarrhea, hematemesis, hematochezia, melena, rectal bleeding or vomiting Genitourinary Genitourinary ED: Reports none, dysuria and hematuria; Denies abdominal discomfort, anuria, genital pain or polyuria Musculoskeletal Musculoskeletal: Reports none; Denies arthralgias, back pain, difficulty walking, extremity pain, muscle weakness or myalgias Integumentary Reports none; Denies abscess or rash Neurologic Neurologic: Reports none; Denies abnormal gait, confusion, focal weakness, frequent falls, headache(s), loss of vision, numbness, paresthesias, radicular pain, vertigo or weakness Psychiatric Psychiatric: Reports systems reviewed and no addt'l complaints, except as documented and none; Denies behavioral changes, confusion, difficulty concentrating, hallucinations, suicidal ideation, tactile hallucinations or visual hallucinations Endocrine Endocrinology: Denies none, cold intolerance, excessive sweating, fatigue or heat intolerance Hematologic/Lymphatic Hematologic/Lymphatic: Reports none; Denies anemia, easy bleeding or easy bruising Allergic/Immunologic Allergic/Immunologic ED: Denies as per HPI, none, lip swelling, mouth swelling, throat swelling, tongue swelling or hives EXAM Physical Exam Const Vital Signs: 10/10/21 12:15 10/10/21 13:27 10/10/21 13:34 Temperature 97.7 F L Temperature Source Temporal Pulse Rate 87 69 Respiratory Rate 18 14 Blood Pressure 103/83 H 106/66 104/72 Blood Pressure Mean 89 79 82 Pulse Ox 97 98 99 Oxygen Delivery Method Room Air Room Air Room Air 10/10/21 14:02 Temperature Temperature Source Pulse Rate 85 Respiratory Rate 16 Blood Pressure 109/85 H Blood Pressure Mean 93 Pulse Ox 98 Oxygen Delivery Method Room Air Positive well nourished and well developed General Appearance ED: well developed and NAD HEENT Reports TM's clear and moist mucous membranes normocephalic and atraumatic; Negative for trauma or tenderness Tympanic Membrane ED: Yes TM's clear Eyes PERRL and EOMs intact bilaterally General Eye ED: Negative for pale conjunctiva or scleral icterus Neck no lymphadenopathy, supple and no JVD General: Negative for tenderness Chest Wall inspection of chest normal and palpation of chest normal Chest: Negative for tenderness Resp normal respiratory effort and clear to auscultation bilaterally Effort and Inspection: Negative for respiratory distress or pain with movement Auscultation: Negative for rhonchi, wheezes or diminished lung sounds Cardio regular rate, regular rhythm, S1 normal heart sound, S2 normal heart sound and no murmurs Peripheral Pulses: pulses 2+ throughout GI normal to inspection, nondistended, normoactive bowel sounds, soft to palpation, non-tender, non-distended and no masses GI Narrative: Patient isPatient with some tenderness over the suprapubic region. Guarding. There is no rebound or rigidity. Back/Spine no CVA tenderness and no thoracic nor lumbar tenderness Extremity normal to inspection General Extremety ED: Negative for edema General Extremity: Negative for edema Neuro oriented x3, CN's II-XII intact bilaterally, no sensory deficits noted and gait normal Sensorium / Orientation: awake, alert, oriented to person, oriented to place and oriented to time Motor Exam: strength 5/5 throughout and strength abnormal Psych mental status grossly normal Skin no rashes or lesions noted and no wounds MDM MDM MDM Narrative Medical decision making narrative: IV line established on arrival. Patient had a Whitman catheter placed and large amount of maroon-colored urine returned over 900 cc. I ordered bladder irrigation. Urinalysis showed red blood cells over 100 without signs of infection. CT scan with IV contrast was obtained was read by radiology as bladder wall thickening. Subsequently found out patient had a CT scan done on the 12th of this month which is 5 days ago as an outpatient which showed a bladder wall mass measuring 1.3 x 1.9 cm. Case discussed with urology who will admit patient for bladder irrigation and operative intervention. Lab Data Attestation: I reviewed the patient's lab results. Labs: Laboratory Results - last 24 hr 10/10/21 10/10/21 10/10/21 12:41 12:41 13:12 WBC 7.2 RBC 3.73 L Hgb 11.6 L Hct 35.1 L MCV 94.1 H MCH 31.1 MCHC 33.0 RDW Std Deviation 47.5 H RDW Coeff of Felix 13.7 Plt Count 138 L MPV 10.3 Immature Gran % (Auto) 0.300 Neut % (Auto) 62.2 Lymph % (Auto) 23.9 [place] % (Auto) 10.1 H Eos % (Auto) 2.9 Baso % (Auto) 0.6 Absolute Neuts (auto) 4.5 Absolute Lymphs (auto) 1.72 Nucleated RBC % 0 Sodium 135 L Potassium 4.4 Chloride 105 Carbon Dioxide 25.0 Anion Gap 5 BUN 28 H Creatinine 1.16 Estim Creat Clear Calc 62.06 Est GFR (MDRD) Af Amer 80 Est GFR (MDRD) Non-Af 66 BUN/Creatinine Ratio 24.1 H Glucose 103 Calcium 8.8 Urine Color Red Urine Clarity Cloudy Urine pH 5.0 Ur Specific [place] 1.015 Urine Protein 500 H Urine Glucose (UA) Normal Urine Ketones 5 H Urine Occult Blood 250 H Urine Nitrite Negative Urine Bilirubin Negative Urine Urobilinogen Normal Ur Leukocyte Esterase 25 H Urine RBC > 100 SEEN Urine WBC 0-5 SEEN Ur Squamous Epith Cells 0 SEEN Urine Bacteria 0 SEEN Urine Mucus 0 SEEN Radiography Diagnostic Testing: Clinical Impression(s) from Imaging Studies Abdomen/Pelvis CT 10/10/21 13:50 IMPRESSION: Diffuse fatty infiltration of the liver. Sigmoid diverticulosis. A WHIMTAN catheter is seen within the urinary bladder. Diffuse bladder wall thickening worse at the base of the bladder. Electronically Signed: Baljit Santoro MD at 14:25 EDT , Discharge Plan Triage Chief Complaint: Complaint ED Provider: Thania De Los Santos Dx/Rx/DC Orders Clinical Impression: Hematuria, Bladder mass, Acute urinary retention Prescriptions: No Action lisinopril 20 mg tablet 20 mg PO DAILY RF: 0 aspirin [Etienne Chewable Aspirin] 81 mg tablet,chewable 81 mg PO DAILY RF: 0 Brilinta 90 mg tablet 90 mg PO BID RF: 0 metoprolol tartrate [Lopressor] 50 mg tablet 25 mg PO BID RF: 0 atorvastatin 40 mg tablet 80 mg PO DAILY RF: 0 mecobalamin (vitamin B12) 5,000 mcg lozenge 5,000 mcg PO DAILY RF: 0 isosorbide mononitrate 60 mg tablet extended release 24 hr 60 mg PO DAILY RF: 0 ezetimibe 10 mg tablet 10 mg PO DAILY RF: 0 nitroglycerin 0.4 mg tablet, sublingual 0.4 mg sublingual Q5M PRNRF: 0 tamsulosin [Flomax] 0.4 mg capsule 0.4 mg PO QHS Qty: 30 RF: 1 pantoprazole 40 mg tablet,delayed release (DR/EC) 40 mg PO DAILY Qty: 90 RF: 3 Primary Care Provider: Wayne Arteaga Referrals: Wayne Arteaga, [Primary Care Provider] - Disposition Disposition: Acute Care [facility]
[2021-10-10 13:00] LABS: Absolute Lymphocyte Count 1.72 X10^3/uL (0.83-4.51); Absolute Neutrophil Count 4.5 X10^3/uL (2.0-7.7); Basophil# 0.04 X10^3/uL; Basophil% 0.6 % (0-1); Eosinophil# 0.21 X10^3/uL; Eosinophils% 2.9 % (0-5); Hematocrit 35.1 % (40-54); Hemoglobin 11.6 g/dL (13.0-16.5); Lymphocyte # 1.72 X10^3/ul (0.83-4.51); Lymphocyte % 23.9 % (19-41); Mean Corpuscular Hgb 31.1 pg (27.0-32.0); Mean Corpuscular Volume 94.1 fL (80-94); Mean Platelet Vol. 10.3 fl (6.2-12.0); Monocyte# 0.73 X10^3/uL; Monocyte% 10.1 % (0-10); NRBC Flagged by Analyzer 0 % (0-5); Neutrophil # 4.48 X10^3/uL (2.7-7.7); Neutrophil % 62.2 % (47-70); Platelet Count 138 K/mm3 (150-450); RBC Distribution Width CV 13.7 % (11.6-14.6); RBC Distribution Width SD 47.5 fl (35.1-43.9); Red Blood Count 3.73 M/mm3 (4.6-6.2); White Blood Count 7.2 K/mm3 (4.4-11.0)
[2021-10-10] MEDS: 0.9% Normal Saline 1,000 ML 150 ML IV ×2 (13:00→18:09)
[2021-10-10 13:06] LABS: Anion Gap 5 (5-15); BUN 28 mg/dL (7-18); BUN/Creat Ratio 24.1 RATIO (10-20); Calcium,Total 8.8 mg/dL (8.5-10.1); Chloride 105 mmol/L (98-107); Creatinine, Serum 1.16 mg/dL (0.70-1.30); EST Glomerular Filtration Rate 66 mL/min (>60); Est Glom Filt Rate - Afr Amer 80 mL/min (>60); Estimated Creatinine Clearance 62.06 ml/min; Glucose 103 mg/dL (74-106); Potassium 4.4 mmol/L (3.5-5.1); Sodium Level 135 mmol/L (136-145)
[2021-10-10 13:16] LABS: Bacteria 0 SEEN /hpf (None Seen); Mucous, Urine 0 SEEN /hpf (<or=2+); Squamous Epithelial Cells - UA 0 SEEN /hpf (0-5)
[2021-10-10 13:17] LABS: Color, Urine Red (Yellow); Glucose, Dipstick Normal (Normal); Ketone-Dipstick 5 mg/dl (Negative); Leukocyte Esterase-Dipstick 25 /ul (Negative); Nitrite-Dipstick Negative (Negative); Occult Blood-Urine 250 /ul (Negative); Protein-Dipstick 500 mg/dl (Negative); Specific Gravity, Urine 1.015 (1.002-1.030); Urine Bilirubin Dipstick Negative (Negative); Urine Clarity Cloudy (Clear); Urine Urobilinogen Normal (Normal)
[2021-10-10 13:33] LABS: Red Blood Cells-Urine > 100 SEEN /hpf (0-5); White Blood Cells 0-5 SEEN /hpf (0-5)
--- NOTE | 2021-10-10 13:50 | CT_ITS ---
STUDY: CT ABDOMEN AND PELVIS WITH CONTRAST REASON FOR EXAM: Male, 71 years old. Hematuria, abdominal pain RADIATION DOSAGE (If Supplied By Facility): CTDIvol = ( 19.26 ) mGy, DLP = ( 2303.58 ) mGycm TECHNIQUE: Transaxial images were obtained from the dome of the diaphragm to the symphysis pubis without oral contrast. IV 100mL Isovue-300 was administered. Sagittal and coronal images were reconstructed. Individualized dose optimization techniques were used for this CT. COMPARISON: Comparison is made with prior study dated 10/05/2021. FINDINGS: The visualized lung bases are unremarkable. Coronary artery calcification. There is decreased attenuation of the liver consistent with steatosis. Normal gallbladder and extrahepatic biliary system. Normal spleen. Normal pancreas. Normal bilateral adrenal glands. Stable bilateral renal cysts. Normal visualized stomach. Normal small intestine. There are multiple colonic diverticula consistent with diverticulosis. The appendix is visualized and appears normal. There is scattered atherosclerotic calcification of the abdominal aorta, without a demonstrated aneurysm. Normal inferior vena cava. Normal retroperitoneum. A WHITMAN catheter is seen within the urinary bladder. The urinary bladder is empty. There is a moderate degree of bladder wall thickening although the bladder is not completely distended at this time. Normal abdominal wall. There are diffuse degenerative changes of the visualized lumbar spine. CT/Abdomen/Pelvis W IV Cont ONLY IMPRESSION: Diffuse fatty infiltration of the liver. Sigmoid diverticulosis. A WHITMAN catheter is seen within the urinary bladder. Diffuse bladder wall thickening worse at the base of the bladder. Electronically Signed: Baljit Santoro MD at 14:25 EDT ,
--- NOTE | 2021-10-10 14:49 | NURSING ---
MED SURG JORJE HEMATURIA, URINARY RETENTION, BLADDER MASS
--- NOTE | 2021-10-10 15:00 | NURSING ---
322 JORJE HEMATURIA, URINARY RETENTION, BLADDER MASS
--- NOTE | 2021-10-10 15:36 | HP.PCM_ITS ---
HPI - General General Date of Admission: 10/10/21 HPI Narrative BASHIR HIDALGO, is a 71 M who presents with gross hematuria and significant bleeding he came in from the emergency room a three way catheter was put in the bladder he had a CAT scan done there may be a tumor within the bladder wall patient will be admitted plan to take the surgery tomorrow for possible resection of the bladder tumor. [facility] Medical History Back problem Carpal tunnel syndrome Cataracts, bilateral Hematuria High cholesterol Hypertension Mass of bladder Osteoarthritis Right flank pain Shoulder pain Home Medications aspirin 81 mg chewable tablet 81 mg PO DAILY 06/10/18 [History Last Taken 10/10/21] lisinopril 20 mg tablet 20 mg PO DAILY 06/10/18 [History Last Taken 10/10/21] ticagrelor 90 mg tablet 90 mg PO BID 06/10/18 [History Last Taken 10/10/21] metoprolol tartrate 50 mg tablet 25 mg PO BID tab 06/11/18 [History Last Taken 10/10/21] atorvastatin 40 mg tablet 80 mg PO DAILY tablet 09/16/20 [History Last Taken 10/09/21] ezetimibe 10 mg tablet 10 mg PO DAILY 10/05/21 [History Last Taken 10/10/21] isosorbide mononitrate 60 mg tablet,extended release 24 hr 60 mg PO DAILY 10/05/21 [History Last Taken 10/10/21] mecobalamin (vitamin B12) 5,000 mcg lozenge 5,000 mcg PO DAILY 10/05/21 [History Last Taken 10/10/21] nitroglycerin 0.4 mg sublingual tablet 0.4 mg SUBLINGUAL Q5M PRN 10/05/21 [History Last Taken Unknown] pantoprazole 40 mg PO DAILY 10/10/21 [History Last Taken 10/10/21] tamsulosin [Flomax] 0.4 mg PO QHS 10/10/21 [History Last Taken 10/09/21] Allergy/AdvReac Type Severity Reaction Status Date / Time prednisone Allergy Intermediate Flushing Verified 10/10/21 12:16 Family History Father Cancer Mother Hypertension Surgical History History of heart artery stent History of quadruple bypass History of right knee surgery History of shoulder surgery Social History Smoking Status: Former smoker alcohol intake: never substance use type: does not use what type of physical activity do you participate in: none ROS Constitutional Constitutional: Denies chills, fever(s) or malaise Eyes Eyes: Denies blurry vision or change in vision ENT HEENT: Reports none Cardiovascular Cardiovascular: Denies chest pain or palpitations Respiratory/Chest Respiratory/Chest: Denies cough or shortness of breath with exertion Gastrointestinal Gastrointestinal: Denies abdominal pain, constipation or diarrhea Musculoskeletal Musculoskeletal: Denies back pain, joint stiffness or joint swelling Integumentary Integumentary: Denies dry skin, jaundice, lesions or rash Neurologic Neurologic: Denies confusion, syncope or weakness Psychiatric Psychiatric: Reports none; Denies anxiety or depression Endocrine Endocrinology: Denies excessive sweating, fatigue or flushing Hematologic/Lymphatic Hematologic/Lymphatic: Denies anemia, easy bleeding or easy bruising Vital Signs Vital Signs Vital Signs: 10/10/21 12:15 10/10/21 13:27 10/10/21 13:34 Temperature 97.7 F L Temperature Source Temporal Pulse Rate 87 69 Respiratory Rate 18 14 Blood Pressure 103/83 H 106/66 104/72 Blood Pressure Mean 89 79 82 Pulse Ox 97 98 99 Oxygen Delivery Method Room Air Room Air Room Air 10/10/21 14:02 10/10/21 15:11 Temperature 97.2 F L Temperature Source Temporal Pulse Rate 85 68 Respiratory Rate 16 16 Blood Pressure 109/85 H 107/80 Blood Pressure Mean 93 89 Pulse Ox 98 99 Oxygen Delivery Method Room Air Room Air Weight Weight: 108.862 kg Body Mass Index (BMI) 34.4 Physical Exam Const alert and oriented x3 General Appearance: cooperative HEENT normocephalic, head/scalp atraumatic, EAC's normal and TM's normal bilaterally Eyes PERRL and EOMs intact bilaterally Pupil: sluggish Neck no lymphadenopathy, supple and no JVD General: trachea midline Lymph Lymphatic: no lymphadenopathy noted, lymphedema and lymphadenopathy Resp normal respiratory effort, normal air movement and clear to auscultation bilaterally Cardio regular rate, regular rhythm and peripheral pulses 2+ throughout GI soft to palpation, non-tender and non-distended Extremity normal capillary refill and no clubbing, cyanosis or edema General Extremity: no tenderness to palpation of joints or extremities Skin no rashes or lesions noted General Skin Exam: turgor normal Lesions: no lesions Rashes: no rashes Neuro CN's II-XII intact bilaterally Speech: speech normal Motor Exam: strength 5/5 throughout; Negative for general weakness Psych thought process normal, cooperative and affect normal Appearance: appropriate Results Lab / Micro Data Result Diagrams: 10/10/21 12:41 10/10/21 12:41 Labs: Laboratory Results - last 24 hr 10/10/21 12:41: WBC 7.2, RBC 3.73 L, Hgb 11.6 L, Hct 35.1 L, MCV 94.1 H, MCH 31.1, MCHC 33.0, RDW Std Deviation 47.5 H, RDW Coeff of Felix 13.7, Plt Count 138 L, MPV 10.3, Immature Gran % (Auto) 0.300, Neut % (Auto) 62.2, Lymph % (Auto) 23.9, [place] % (Auto) 10.1 H, Eos % (Auto) 2.9, Baso % (Auto) 0.6, Absolute Neuts (auto) 4.5, Absolute Lymphs (auto) 1.72, Nucleated RBC % 0 10/10/21 12:41: Sodium 135 L, Potassium 4.4, Chloride 105, Carbon Dioxide 25.0, Anion Gap 5, BUN 28 H, Creatinine 1.16, Estim Creat Clear Calc 62.06, Est GFR (MDRD) Af Amer 80, Est GFR (MDRD) Non-Af 66, BUN/Creatinine Ratio 24.1 H, Glucose 103, Calcium 8.8 10/10/21 13:12: Urine Color Red, Urine Clarity Cloudy, Urine pH 5.0, Ur Specific [place] 1.015, Urine Protein 500 H, Urine Glucose (UA) Normal, Urine Ketones 5 H , Urine Occult Blood 250 H, Urine Nitrite Negative, Urine Bilirubin Negative, Urine Urobilinogen Normal, Ur Leukocyte Esterase 25 H, Urine RBC > 100 SEEN, Urine WBC 0-5 SEEN, Ur Squamous Epith Cells 0 SEEN, Urine Bacteria 0 SEEN, Urine Mucus 0 SEEN Radiology Impression Abdomen/Pelvis CT 10/10/21 13:50 IMPRESSION: Diffuse fatty infiltration of the liver. Sigmoid diverticulosis. A WHITMAN catheter is seen within the urinary bladder. Diffuse bladder wall thickening worse at the base of the bladder. Electronically Signed: Baljit Santoro MD at 14:25 EDT , Assessment & Plan Assessment/Plan (1) Bladder mass: PLAN: plan for TURBT at [facility] admit for bleeding (2) Hematuria: (3) Acute urinary retention:
[2021-10-10] MEDS: Tamsulosin HCl 0.4 MG Capsule PO (21:03)
[2021-10-10] MEDS: Metoprolol Tartrate 25 MG Tablet PO (21:03)
[2021-10-10] MEDS: Atorvastatin Calcium 80 MG Tablet PO (21:03)
[2021-10-10] MEDS: Cefazolin 1 GM/50 ML BAG IV (21:03)
[2021-10-11] VITALS (18 sets, daily range): BP systolic 109–133; BP diastolic 73–87; PULSE 56–98; RESP 14–18; TEMP 36.4–37.2; O2SAT 95–100; BMI 32.0
[2021-10-11] MEDS: 0.9% Normal Saline 1,000 ML 150 ML IV ×4 (01:36→21:43)
[2021-10-11] MEDS: Cefazolin 1 GM/50 ML BAG IV ×3 (05:19→21:43)
--- NOTE | 2021-10-11 05:55 | EKG12_ITS ---
Test Reason : PRE-OP Blood Pressure : / mmHG Vent. Rate : 067 BPM Atrial Rate : 067 BPM P-R Int : 176 ms QRS Dur : 092 ms QT Int : 418 ms P-R-T Axes : 052 025 044 degrees QTc Int : 441 ms Normal sinus rhythm Normal ECG No previous ECGs available Confirmed by ELIO HERR, DILCIA ([id number]), commissioning editor ASIF FATIMA ([id number]) on 10/11/2021 2:11:01 PM Referred By: NICOLE Confirmed By:DILCIA BALLARD MD
[2021-10-11] MEDS: Isosorbide Mononitrate 60 MG Tablet PO (08:50)
[2021-10-11] MEDS: Pantoprazole Sodium 40 MG Tablet PO (08:50)
[2021-10-11] MEDS: Metoprolol Tartrate 25 MG Tablet PO ×2 (08:50→21:41)
--- NOTE | 2021-10-11 10:25 | CASEMGMT ---
RN CM Face to Face with patient for initial transition planning/care coordination assessment. RN CM introduced self and role at [facility]. Patient sitting in chair, alert and oriented. Patient willing to participate in assessment and is able to answer all questions appropriately. Care providers, pharmacy, and demographics verified. Patient wishes to discharge home, denies need for home health at this time. Patient states he has no further needs or concerns at this time. CM to follow for discharge planning needs that may arise. PCP: [facility] Specialists: [facility] Preferred [facility]acy: [facility] Insurance: [facility], [facility] Prescription Benefit: yes Living Will/HPOA: yes, Pam Oropeza LNOK: Living Arrangements: Patient lives with in a 2 story home. Patient states he is independent and able to ambulate stairs. Transportation: self, DME/HHC: Patient states he has cane, walker, and grab bars at home. Patient denies previous HHC or SNF. Disposition Plan: Patient to discharge home with family support and follow-up plans in place. Shama CHU, RN, CM
--- NOTE | 2021-10-11 12:32 | NURSING ---
lab notified of stat labs
[2021-10-11 13:06] LABS: Prothrombin Time (Protime)PT. 13.1 SECONDS (11.7-14.9)
[2021-10-11 13:07] LABS: Partial Thromboplast Time 31.1 Seconds (24.1-36.2)
--- NOTE | 2021-10-11 16:47 | PCM.DC ---
Discharge Instructions Diet Discharge Diet: No restrictions Activity Discharge Activity: Return to Normal Activity and May Not Drive (while taking narcotic pain medications.) Dressing / Incision Call your doctor if you observe: Fever of 101 or Higher Follow Up Care Please Follow Up With: Juan Raman MD When: Call [phone] for an appointment Test Results: Test results from this visit will be discussed in further detail at your follow-up appointment, if applicable. Discharge Plan Admission Admit Date/Time: 10/10/21 16:44 Attending Provider: Juan Raman Primary Care Provider: Wayne Arteaga Discharge Orders/Prescriptions Prescriptions: No Action lisinopril 20 mg tablet 20 mg PO DAILY RF: 0 aspirin [Etienne Chewable Aspirin] 81 mg tablet,chewable 81 mg PO DAILY RF: 0 Brilinta 90 mg tablet 90 mg PO BID RF: 0 metoprolol tartrate [Lopressor] 50 mg tablet 25 mg PO BID RF: 0 atorvastatin 40 mg tablet 80 mg PO DAILY RF: 0 mecobalamin (vitamin B12) 5,000 mcg lozenge 5,000 mcg PO DAILY RF: 0 isosorbide mononitrate 60 mg tablet extended release 24 hr 60 mg PO DAILY RF: 0 ezetimibe 10 mg tablet 10 mg PO DAILY RF: 0 nitroglycerin 0.4 mg tablet, sublingual 0.4 mg sublingual Q5M PRN (Reason: chestpain) RF: 0 tamsulosin [Flomax] 0.4 mg capsule 0.4 mg PO QHS RF: 0 pantoprazole 40 mg tablet,delayed release (DR/EC) 40 mg PO DAILY RF: 0 Referrals / Follow Up: Wayne Arteaga, [Primary Care Provider] -
--- NOTE | 2021-10-11 17:30 | BLB_PTH ---
PATIENT: BASHIR HIDALGO LOC: MS3 U#:[id number] AGE/SX: 71/M ROOM: [facility] RE10/10/[address]: Dr. Juan Raman MD : [id number] BED: 1 DIS: 10/13/2021 SPEC #: [id number] RECD: 10/12/21 07:38 STATUS: BECKY REJosep #: [id number] BONG: 10/11/21 17:[address]: Juan Raman DEPT: SURGICAL PATHOLOGY RECD BY: Edyta Guzman ENTERED: 10/12/21 08:12 SP TYPE: TURB OTHR DR: Dr. Wayne Arteaga, DO Tissues: A - Urinary bladder, NOS B - Urinary bladder, NOS Procedures: Surgery Specimen Level V HEADER OPERATION: Transurethral resection bladder tumor Olympus PRE-OP DIAGNOSIS: Bladder mass, hematuria, acute urinary retention TISSUE SUBMITTED: A ? Bladder tumor ? right bladder wall, B - Bladder tumor ? left bladder wall MICROSCOPIC DIAGNOSIS A. Right urinary bladder wall tumor, transurethral resection: Papillary urothelial carcinoma. See cancer checklist below. B. Left urinary bladder wall tumor, transurethral resection: Papillary urothelial carcinoma. See cancer checklist below. AM:marcel 10/13/2021 COMMENT A & B. BLADDER CANCER (TUR) SUMMARY Procedure: Transurethral resection of bladder (TURBT) Tumor site: Right and left wall of urinary bladder Histologic type: Papillary urothelial carcinoma Histologic grade: 1-2/3 (WHO low grade) Tumor configuration: Papillary Muscularis propria: Present and free of carcinoma. Lymphvascular invasion: Not identified Tumor extension: Confined to urothelium. Additional pathologic findings: None identified The above summary is in compliance with [employer] (CAP) Cancer Protocols Checklist and [place] Joint Committee on Cancer (AJCC), Staging Manual, 8th Ed. Case has been reviewed in consultation with Dr. Petersen who concurs with the above diagnosis. IDC:SJ MICROSCOPIC DESCRIPTION Slides are reviewed. GROSS DESCRIPTION A - Received in fixative is one container labeled with the patient's name and designated right lateral bladder tumor. The specimen consists of multiple irregular fragments of keys soft tissue mixed with numerous blood clots that in aggregate measure 5 x 5.5 x 2 cm. The entire specimen is submitted in ten cassettes. / SJ:marcel 10/12/2021 B - Received in fixative is one container labeled with the patient's name and designated bladder tumor. The specimen consists of multiple irregular and friable fragments of light keys soft tissue that in aggregate measure 8.5 x 3 x 0.2 cm. Also present in the specimen container is a blood clot with adherent keys-white tissue measuring in aggregate 3 x 3 x 0.2 cm. The specimen is totally submitted in four cassettes. / AM:marcel 10/12/2021 TC:0 CPT: 75929 x2
--- NOTE | 2021-10-11 17:45 | PCM.OPRPT ---
Report of Operation Date of Procedure: 10/11/21 Pre-Operative Diagnosis: Multiple large tumors in the bladder Post-Operative Diagnosis: The same Surgery/Procedure Performed:: Transurethral resection of multiple large tumors greater than 5 cm Description of Surgical Findings:: This is a 71-year-old gentleman presented to the hospital with gross hematuria CT scan was done concerning with blood possible tumors within the bladder so taken back to surgery today he was admitted last night for gross bleeding and retention of urine from the bleeding. Patient underwent general anesthetic and was paralysis I then went into the bladder with a 24 Panamanian continuous-flow Olympus resectoscope identified a large tumor in the right lateral wall that was over the right ureteral orifice I resected the orifice and the tumor completely down to the muscle layer and cauterized to obtain hemostasis and then went to the left side and on the left lateral wall he had another 5 cm tumor that was fairly large at the resect this tumor down to the muscle and etc. sent off a separate specimen after both sides were cauterized extensively and put a 22 Panamanian catheter and continuous irrigation patient anesthetic was reversed it was a complete resection of all visible tumors the first tumor appeared more superficial the second tumor was concerning that it may be invasive into the lamina propria or the muscle layer. At the resection was completed no other visible tumors were noted and the patient's anesthetic was versed taken back to PACU in good condition. Surgeon: lois Type of Anesthesia: General Drains: 22fr 3 way dodson Admit VTE Documentation VTE Present on Admission: No VTE Mechan Device Prophylaxis: SCD's VTE Pharm Prophylaxis ordered?: No
--- NOTE | 2021-10-11 20:04 | SUR.PHASEI ---
WHILE ATTEMPTING TO EMPTY WHITMAN BAG, CLOTS GOT STUCK IN THE VALVE AND CATHETER BAG WOULD NOT EMPTY, CATHETER IS DRAINING FINE INTO BAG. NEW BAG PLACED.
[2021-10-11] MEDS: Atorvastatin Calcium 80 MG Tablet PO (21:41)
[2021-10-11] MEDS: Tamsulosin HCl 0.4 MG Capsule PO (21:41)
[2021-10-11] MEDS: Morphine 2 MG/ML Syringe IV (23:46)
[2021-10-12] VITALS (18 sets, daily range): BP systolic 83–117; BP diastolic 55–74; PULSE 80–104; RESP 16–18; TEMP 36.4–37.3; O2SAT 94–100
[2021-10-12] MEDS: Ibuprofen 600 MG Tablet PO (00:10)
--- NOTE | 2021-10-12 00:59 | PCM.PN.BLA ---
Progress Note 71-year-old male status post resection of 2 very large bladder tumors fairly deep resection at the end of the surgery urine was post to clear no obvious bleeding but it continuous-flow catheter in the bladder and then around midnight tonight the nurse called and reported that the catheter clotted off with blood I came and we took out the large three-way catheter we put a 20 Cook Islander catheter over a cystoscope into the bladder and try to irrigate A lot of blood clot straight out of the bladder. He is hypotensive and he is got bleeding from the bladder apparently some blood vessels opened up and so organ to taken back to surgery evacuate all the clots out of the bladder and not to cauterize the bleeder. Patient was made aware of situation he is agreeable with going back to surgery tonight for bleeding after TURBT.
[2021-10-12] MEDS: 0.9% Normal Saline 1,000 ML 500 ML IV (01:02)
[2021-10-12 01:25] LABS: Absolute Lymphocyte Count 0.85 X10^3/uL (0.83-4.51); Absolute Neutrophil Count 10.7 X10^3/uL (2.0-7.7); Basophil# 0.03 X10^3/uL; Basophil% 0.2 % (0-1); Eosinophil# 0.04 X10^3/uL; Eosinophils% 0.3 % (0-5); Hematocrit 27.6 % (40-54); Hemoglobin 8.9 g/dL (13.0-16.5); Lymphocyte # 0.85 X10^3/ul (0.83-4.51); Lymphocyte % 6.8 % (19-41); Mean Corp Hgb Conc 32.2 g/dL (32-36); Mean Corpuscular Hgb 30.8 pg (27.0-32.0); Mean Corpuscular Volume 95.5 fL (80-94); Mean Platelet Vol. 10.3 fl (6.2-12.0); Monocyte# 0.76 X10^3/uL; Monocyte% 6.1 % (0-10); NRBC Flagged by Analyzer 0 % (0-5); Neutrophil # 10.74 X10^3/uL (2.7-7.7); Neutrophil % 86.2 % (47-70); Platelet Count 134 K/mm3 (150-450); RBC Distribution Width CV 13.8 % (11.6-14.6); RBC Distribution Width SD 48.3 fl (35.1-43.9); Red Blood Count 2.89 M/mm3 (4.6-6.2); White Blood Count 12.5 K/mm3 (4.4-11.0)
--- NOTE | 2021-10-12 01:41 | NURSING ---
Pts dodson was not draining and noted lots of clots coming out. had saline bags wide open and mixing machine attendant and this RN flushing and irrigating catheter. pt having discomfort. called Dr. Raman and made him aware pts dodson is not draining dodson bags changed 3x d/t clots and having hard time emptying the bag. odered to remove the dodson and insert 18F dodson. made aware was not able to insert dodson d/t resistance. came and inserted 18F and flushing catheter. Removed 18F in attempt to insert 20F dodson but was unsuccsessful. pts BP dropped to 83/55, made aware. ordered 1L bolus and CBC. decided to take pt back to Sx d/t bleeding. kenyon WOMACK offered pt to call his pt refused to be called. rechecked pts BP noted it improved 107/73. report called to Sx RN.
--- NOTE | 2021-10-12 01:53 | NURSING ---
called pts Pam, no answer, left voice mail.
[2021-10-12] MEDS: Lubricating Jelly 60 GM Tube 30 GM (02:43)
--- NOTE | 2021-10-12 02:54 | OP.PCM_ITS ---
Report of Operation Date of Procedure: 10/12/21 Pre-Operative Diagnosis: Status post transurethral resection of the very large bladder tumor with postop bleeding Post-Operative Diagnosis: Same Surgery/Procedure Performed:: cystoscopy evacuation of blood clots and cauterization of active bleeding from the lateral sidewall the bladder Description of Surgical Findings:: 71-year-old male who was found to have large tumors within his bladder he underwent resection of these tumors last evening around midnight the nurses reported heavy bleeding from the catheter could not irrigate the catheter I went and checked on the patient found to have significant mount of blood clots in the bladder so I took him back to surgery he underwent emergent surgery with general anesthesia and once I got inside the bladder the patient underwent general anesthesia he was put in dorsolithotomy position the penis testicles were prepped and draped in usual sterile fashion got inside the bladder with a 24 Hungarian can tenuous flow resectoscope there was a significant hemorrhage within the bladder this was all irrigated out manually I then was inspected the bladder and family found an active bleeding vessel in the left lateral wall the block bladder anterior that was bleeding pretty heavily I cauterized this and then the bleeding stopped I then went through and evacuated all the blood clots out of the bladder and then went through and very meticulously cauterized the resection site to make sure there is no other bleeding sites. I then placed a 22 Hungarian catheter into the bladder patient's anesthetic was reversed he will get a unit of blood a unit of fresh frozen plasma to help stop the bleeding and he will go to the PACU he is in stable condition I called the family and left a message on his 's phone number. Surgeon: lois Type of Anesthesia: General Drains: dodson [address] Admit VTE Documentation VTE Present on Admission: No VTE Mechan Device Prophylaxis: SCD's VTE Pharm Prophylaxis ordered?: No
[2021-10-12] MEDS: Cefazolin 1 GM/50 ML BAG IV ×3 (05:05→21:05)
[2021-10-12] MEDS: Lactated Ringers 1,000 ML 150 ML IV ×3 (05:05→21:05)
[2021-10-12] MEDS: 0.9% Saline Lock 10 ML Syringe IV (06:06)
--- NOTE | 2021-10-12 07:53 | PCM.PN.BLA ---
Progress Note take to OR last night for bleedin urine now clear, heplock IVF keep dodson in. reg diet ambulate
[2021-10-12] MEDS: Metoprolol Tartrate 25 MG Tablet PO (08:18)
[2021-10-12] MEDS: Isosorbide Mononitrate 60 MG Tablet PO (08:18)
[2021-10-12] MEDS: Ezetimibe 10 MG Tablet PO (08:19)
[2021-10-12] MEDS: Pantoprazole Sodium 40 MG Tablet PO (08:19)
[2021-10-12] MEDS: Lisinopril 20 MG Tablet PO (08:19)
[2021-10-12 12:05] LABS: Bedside Glucose 144 mg/dL (74-106)
[2021-10-12] MEDS: Atorvastatin Calcium 80 MG Tablet PO (21:04)
[2021-10-12] MEDS: Tamsulosin HCl 0.4 MG Capsule PO (21:04)
[2021-10-13 03:17] VITALS: BP 127/63; PULSE 108; RESP 18; TEMP 36.9; O2SAT 97
[2021-10-13] MEDS: Cefazolin 1 GM/50 ML BAG IV ×2 (05:05→13:36)
[2021-10-13] MEDS: Lactated Ringers 1,000 ML 150 ML IV (05:06)
--- NOTE | 2021-10-13 06:20 | PCM.PN.GU ---
Subjective Subjective Doing much better, urine is clear no more bleeding he is up adage chair vital signs are stable. Status post resection of large bladder masses postop complication bleeding at the taken back to surgery and cauterize and stop bleeding fortunately now situation has been under control catheter is in place urine is draining nice and clear urine with no blood he will go home today with a catheter. Objective Data Objective Data Vital Signs: Vital Signs Temp Pulse Resp BP Pulse Ox 98.4 F 108 H 18 127/63 H 97 10/13/21 03:17 10/13/21 03:17 10/13/21 03:17 10/13/21 03:17 10/13/21 03:17 Oxygen Flow Rate (L/min) 2 Oxygen Delivery Method Room Air Weight: 101.2 kg Body Mass Index (BMI) 32.0 Intake & Output: Intake and Output for Last 24 Hours 10/11/21 10/12/21 10/13/21 23:59 23:59 23:59 Intake Total 4290.0 / 4290.0 5327.50 / 5327.50 2054 / 2054 Output Total 3950 / 3950 360 / 360 3250 / 3250 Balance 340.0 / 340.0 4967.50 / 4967.50 -1195 / -1195 Lab / Micro Data Result Diagrams: 10/12/21 01:15 10/10/21 12:41 Labs: Laboratory Results - last 24 hr 10/12/21 12:02: POC Glucose 144 H
--- NOTE | 2021-10-13 06:24 | DCINST_ITS ---
Discharge Instructions Diet Discharge Diet: Light diet - advance as tolerated and Soft diet Activity Discharge Activity: May Not Drive (while taking narcotic pain medications.) Lifting Restrictions: NO LIFTING or heavy activity, no Mowing Dressing / Incision Call your doctor if you observe: Fever of 101 or Higher Catheter: Dodson to leg bag and Dodson to large bag Drain: [place] Follow Up Care Please Follow Up With: Juan Raman MD When: call for appt next to remove dodson, call [phone] to set up appt. Test Results: Test results from this visit will be discussed in further detail at your follow-up appointment, if applicable. Discharge Plan Admission Admit Date/Time: 10/10/21 16:44 Primary Reason for Your Visit: resection of bladder tumor Attending Provider: Juan Raman Primary Care Provider: Wayne Arteaga Instructions Patient Instructions: Discharge Instructions for ... Discharge Orders/Prescriptions Prescriptions: New ciprofloxacin HCl [Cipro] 500 mg tablet 500 mg PO BID 7 Days Qty: 14 RF: 0 Continued lisinopril 20 mg tablet 20 mg PO DAILY RF: 0 metoprolol tartrate [Lopressor] 50 mg tablet 25 mg PO BID RF: 0 atorvastatin 40 mg tablet 80 mg PO DAILY RF: 0 mecobalamin (vitamin B12) 5,000 mcg lozenge 5,000 mcg PO DAILY RF: 0 isosorbide mononitrate 60 mg tablet extended release 24 hr 60 mg PO DAILY RF: 0 ezetimibe 10 mg tablet 10 mg PO DAILY RF: 0 nitroglycerin 0.4 mg tablet, sublingual 0.4 mg sublingual Q5M PRN (Reason: chestpain) RF: 0 tamsulosin [Flomax] 0.4 mg capsule 0.4 mg PO QHS RF: 0 pantoprazole 40 mg tablet,delayed release (DR/EC) 40 mg PO DAILY RF: 0 Held Brilinta 90 mg tablet 90 mg PO BID RF: 0 Hold Instructions: Resume on 10/27/21. Discontinued aspirin [Etienne Chewable Aspirin] 81 mg tablet,chewable 81 mg PO DAILY RF: 0 Referrals / Follow Up: Wayne Arteaga DO [Primary Care Provider] - Juan Raman MD [STAFF PHYSICIAN] - Disposition Discharge Orders: Discharge Patient (Routine); Ordered 05/20/22 Ordered By: Dr. Juan Raman
--- NOTE | 2021-10-13 06:26 | DS.PCM_ITS ---
Providers Date of Admission: 10/10/21 Primary Care Physician: Dr. Wayne Arteaga, DO Reason For Visit: HEMATURIA,URINARY RETENTION,BLADDER MASS Diagnosis Discharge Diagnosis (1) Bladder mass: Status: Acute Code(s): N32.89 - Other specified disorders of bladder (2) Hematuria: Status: Acute Code(s): R31.9 - Hematuria, unspecified (3) Acute urinary retention: Status: Acute Code(s): R33.8 - Other retention of urine Medications at Discharge Home Medications lisinopril 20 mg tablet 20 mg PO DAILY 06/10/18 ticagrelor 90 mg tablet 90 mg PO BID 06/10/18 metoprolol tartrate 50 mg tablet 25 mg PO BID tab 06/11/18 atorvastatin 40 mg tablet 80 mg PO DAILY tablet 09/16/20 ezetimibe 10 mg tablet 10 mg PO DAILY 10/05/21 isosorbide mononitrate 60 mg tablet,extended release 24 hr 60 mg PO DAILY 10/05/21 mecobalamin (vitamin B12) 5,000 mcg lozenge 5,000 mcg PO DAILY 10/05/21 nitroglycerin 0.4 mg sublingual tablet 0.4 mg SUBLINGUAL Q5M PRN 10/05/21 pantoprazole 40 mg PO DAILY 10/10/21 tamsulosin [Flomax] 0.4 mg PO QHS 10/10/21 ciprofloxacin HCl [Cipro] 500 mg PO BID 7 Days #14 tab 10/13/21 Hospital Course Summary of Care Provided Hospital Course: 71-year-old male presented to hospital with gross hematuria and clot retention, he was taken to the operating room and found to have 2 large masses in his bladder both these were resected they went fairly deep into the bladder final pathology is pending, about 6 hours after the surgery he experi enced sudden onset of bleeding from the bladder resection site had a taken back to surgery to evacuate the clots and cauterized the bleeding fortunately the stopped he did receive 1 unit of blood but now is clinically stable and will go home with a Dodson catheter the urine is crystal clear with no bleeding and he is up out of bed walking tolerating regular diet and doing well he was instructed not to take any blood thinners. Weight / BMI Weight Weight: 101.2 kg Body Mass Index (BMI) 32.0 ABG / Lab / Microbiology Data Result Diagrams: 10/12/21 01:15 10/10/21 12:41 Laboratory: Laboratory Results - last 24 hr 10/12/21 12:02: POC Glucose 144 H D/C Instructions Discharge Diet: Light diet - advance as tolerated and Soft diet Call your doctor if you observe: Fever of 101 or Higher Catheter: Dodson to leg bag and Dodson to large bag Drain: [place] Please Follow Up With: Juan Raman MD When: call for appt next to remove dodson, call [phone] to set up appt. Meaningful Use Info Meaningful Use Diagnoses (Choose all that apply): None applicable Discharge Plan Admission Admit Date/Time: 10/10/21 16:44 Primary Reason for Your Visit: resection of bladder tumor Attending Provider: Juan Raman Primary Care Provider: Wayne Arteaga Instructions Patient Instructions: Discharge Instructions for ... Discharge Orders/Prescriptions Prescriptions: New ciprofloxacin HCl [Cipro] 500 mg tablet 500 mg PO BID 7 Days Qty: 14 RF: 0 Continued lisinopril 20 mg tablet 20 mg PO DAILY RF: 0 metoprolol tartrate [Lopressor] 50 mg tablet 25 mg PO BID RF: 0 atorvastatin 40 mg tablet 80 mg PO DAILY RF: 0 mecobalamin (vitamin B12) 5,000 mcg lozenge 5,000 mcg PO DAILY RF: 0 isosorbide mononitrate 60 mg tablet extended release 24 hr 60 mg PO DAILY RF: 0 ezetimibe 10 mg tablet 10 mg PO DAILY RF: 0 nitroglycerin 0.4 mg tablet, sublingual 0.4 mg sublingual Q5M PRN (Reason: chestpain) RF: 0 tamsulosin [Flomax] 0.4 mg capsule 0.4 mg PO QHS RF: 0 pantoprazole 40 mg tablet,delayed release (DR/EC) 40 mg PO DAILY RF: 0 Held Brilinta 90 mg tablet 90 mg PO BID RF: 0 Hold Instructions: Resume on 10/27/21. Discontinued aspirin [Etienne Chewable Aspirin] 81 mg tablet,chewable 81 mg PO DAILY RF: 0 Referrals / Follow Up: Wayne Arteaga DO [Primary Care Provider] - Juan Raman MD [STAFF PHYSICIAN] - Disposition Discharge Orders: Discharge Patient (Routine); Ordered 10/13/21 Ordered By: Dr. Juan Raman
[2021-10-13 08:18] VITALS: BP 107/67; PULSE 102; RESP 18; TEMP 36.7; O2SAT 98
[2021-10-13 08:28] VITALS: PULSE 102
[2021-10-13] MEDS: Pantoprazole Sodium 40 MG Tablet PO (08:28)
[2021-10-13] MEDS: Ezetimibe 10 MG Tablet PO (08:28)
[2021-10-13] MEDS: Isosorbide Mononitrate 60 MG Tablet PO (08:28)
[2021-10-13] MEDS: Metoprolol Tartrate 25 MG Tablet PO (08:28)
[2021-10-13] MEDS: Lisinopril 20 MG Tablet PO (08:28)
--- NOTE | 2021-10-13 09:47 | CASEMGMT ---
RN CM in to pt room to discuss dc. Pt states he was up walking in the [place]. States he feels fine going home but is a little leery about the catheter. States the nurse was in to provide education but he asked to wait until his is present in room. Pt denies any further homegoing needs at this time.
[2021-10-13 13:41] VITALS: BP 95/50; PULSE 100; RESP 18; TEMP 36.9; O2SAT 93
[2021-10-13 13:48] VITALS: O2SAT 93
[2021-10-13 14:38] VITALS: BP 101/63; PULSE 101
== END 2021-10-13 14:50 | disposition home or self-care (01) | DRG 663 ==
LOC: ED 14:55 → MS3 15:41
PROVIDERS: Admitting Provider Urology; Emergency Provider Emergency Medicine; PCP Family Medicine; Visit Provider Urology
PROC: 0TBB8ZZ Excision of Bladder, Via Natural or Artificial Opening Endoscopic (ICD-10-PCS; principal; 2021-10-11 17:20)
DX: C67.9 Malignant neoplasm of bladder, unspecified (principal); N99.820 Postprocedural hemorrhage of a genitourinary system organ or structure following a genitourinary system procedure; E78.00 Pure hypercholesterolemia, unspecified; I95.9 Hypotension, unspecified; M19.90 Unspecified osteoarthritis, unspecified site; I10 Essential (primary) hypertension; N32.89 Other specified disorders of bladder; H26.9 Unspecified cataract; Z79.82 Long term (current) use of aspirin; Z79.899 Other long term (current) drug therapy; Z98.84 Bariatric surgery status; Z87.891 Personal history of nicotine dependence; R31.0 Gross hematuria; R33.9 Retention of urine, unspecified
CPT/HCPCS: 36415; 51702; 74177; 80048; 81001; 82962; 85025; 85610; 85730; 86644; 86850; 86900; 86901; 86920; 88307; 93005; 99285; J7030; J7040; J7120; P9016; P9017; Q9967; A4216; J2405

== ENCOUNTER 2022-07-02 09:30 | Outpatient (RCR) | payer MEDICARE, OTHER, SELFPAY ==
--- NOTE | 2022-03-06 10:50 | HP.PTEVAL ---
Patient's Visit Information BASHIR HIDALGO is a 71 year old M referred to Physical Therapy by Dr. Az Billings DO with a diagnosis of L RCR, biceps tenodesis 02/14/22. Date of Evaluation: 03/06/22 Physical Therapist: Yanick Juarez, DPT, OCS, CSCS - Visit Plan Frequency: 3x /Week Duration: 6 Weeks Plan: 3x/week x 6 weeks to start... 1. initiate PROM therapy on 03/14- to L shoulder, ensure elbow and scap moving well. 2. Can progress to AAROM and AROM 03/29 if tolerating well. Eventual strength and funcitonal progression once allowed by doctor. ice as needed, progression of HEP. - Subjective 02/14/22 L RCR, debridement and biceps tenodesis, cleaned it up. Had this done on R side 3 yrs ago and doing great. L side was done due to pain and instability L shoulder and could not lift it. pain prior to surgery 02/03 with lifting and using and awaking in am. It has been hurting healing since surgery up to 02/03 this week and arm got hot in biceps area. Might have used it too much by letting it hang. Did pendulum. That pain has gone away now and pain is 7/10 dressing and 5/10. Taking meds regularly oxycodone or advil. Sleep: is in chair but decently there. Basic ADLs: dressing is hard and takes time but can do it. Bathroom and shower take extra time. Hobbies: Likes to work in shop and repair stuff. Retired. Uses ice pack daily. - Pain L upper arm Pain Intensity (Out of 10): 4 Pain Intensity Range: 3, 9 - Objective Walks back to PT I, transfers I using R UE. L arm in sling whcih is donned and doffed I along with jacket. Incisions are dry and healed well without signs of redness heat or swelling today. R UE AROM WFL. L UE AROM shoulder not tested, elbow full but slow at end ranges., wrist and scap full but hesitant at scap. Hand is good. PROM L shoulder flexion 90 and abduction 70 and ext rotation 20 limited by painful expressions today. - Balance/Special Test Scores Quick DASH Score: 90.9075 - Goals Goal 1:: ST: PROM 150 elevation adn 60 ext rotation and L5 IR Goal Time Frame: 2-4 Weeks Goal 2:: LT : AROM 155 elevation adn 65 ext rotation and L4 IR Goal Time Frame: 6-8 Weeks Goal 3:: Reach OH without pain or hesitation Goal Time Frame: 8-12 Weeks Goal 4:: Pt feel 90% back to normal Goal Time Frame: 8-12 Weeks Goal 5:: quickdash score 14 or less Goal Time Frame: 8-12 Weeks - Rehabilitation Potential Physical Therapy Diagnosis: s/p L RCR Rehabilitation Potential: Good - Anticipated Interventions Patient/Client Instruction: Educate patient on: Condition, Plan of Care For the Purpose of:: To decrease pain, To increase ROM, To improve muscle performance and motor function, To increase tolerance to activity/condition/position Therapeutic Exercise to Include: Strength training, Passive ROM, Active ROM For the Purpose of:: To decrease pain, To increase ROM Manual Therapy Techniques to Include: Scar massage, Passive ROM, Soft tissue mobilization For the Purpose of:: To decrease pain, To increase ROM Cryotherapy (ice pack, ice massage): Yes For the Purpose of:: To decrease swelling/inflammation, To increase ROM Thank you for the opportunity to evaluate your patient. For Medicare and Medicare HMO plans, please review the plan of care and approve it. It will need to be FAXED BACK to us at [phone] for Medicare purposes. For Medicare only, by signing this I certify the plan of care. Please let me know if there are questions or concerns regarding this plan of care. Physician Signature: Date:
--- NOTE | 2022-04-02 11:00 | HP.PTREVAL ---
Dr. Az Billings, DO, It has been my pleasure to treat BASHIR HIDALGO over the last 10 visits for L RCR, biceps tenodesis 02/14/22. Please see the progress note below for an update on the physical therapy plan of care! Subjective: Hurts and will see doctor later today. Pain over weekend continues to 8/10 intermittently. This weekend worse than last weekend. Any [id number] makes him more painful. feels like a hole in my shoulder. Taking pain meds now and then but not often and not on driving days. Using ice adn heat at home Objective/Function: PROM to 140 elevation, painful at upper levels. Ext rotation 45 with more pain near end range. pt is doing well with ROM but pain level over last week is higher than expected for no apparent reason. Will see dotor today and would like that addressed. Plan Plan: Continue POC, may progress to phase 2 depending on doctor visit today Balance/Gait/Functional tests - Balance/Special Test Scores Quick DASH Score: 90.9075 Goals Goal 1:: ST: PROM 150 elevation adn 60 ext rotation and L5 IR Goal Time Frame: 2-4 Weeks Goal 2:: LT : AROM 155 elevation adn 65 ext rotation and L4 IR Goal Time Frame: 6-8 Weeks Goal 3:: Reach OH without pain or hesitation Goal Time Frame: 8-12 Weeks Goal 4:: Pt feel 90% back to normal Goal Time Frame: 8-12 Weeks Goal 5:: quickdash score 14 or less Goal Time Frame: 8-12 Weeks Anticipated Interventions Patient/Client Instruction: Educate patient on: Condition, Plan of Care For the Purpose of:: To decrease pain, To increase ROM, To improve muscle performance and motor function, To increase tolerance to activity/condition/position Therapeutic Exercise to Include: Strength training, Passive ROM, Active ROM For the Purpose of:: To decrease pain, To increase ROM Manual Therapy Techniques to Include: Scar massage, Passive ROM, Soft tissue mobilization For the Purpose of:: To decrease pain, To increase ROM Cryotherapy (ice pack, ice massage): Yes For the Purpose of:: To decrease swelling/inflammation, To increase ROM Please do not hesitate to contact me at [phone] by phone or if you have questions or concerns regarding this new plan of care! Sincerely, Yanick Juarez, DPT, OCS, CSCS
--- NOTE | 2022-05-02 11:53 | HP.PTREVAL ---
Dr. Az Billings, DO, It has been my pleasure to treat BASHIR HIDALGO over the last 19 visits for L RCR, biceps tenodesis 02/14/22. Please see the progress note below for an update on the physical therapy plan of care! Subjective: Sometimes feels soreness and pain. pain at times up to 8/10 while lying down and feels better in recliner. Can lift arm up. Using it to put dishes away and it catches every now and then. Activities needing to return to are working in garage which he is not doing. 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 Objective/Function: 145 flexion, 140 abduction, 52 ext rotation and L5 IR all with soreness at end range adn slower at end range. strength is 3+ er and IR, and flexion/abduction on L and 4- biceps and 4+ triceps L. Overall doing well with some soreness and needs some strengthening. Plan Plan: 2x/week for 4 weeks for. 1. AAROM to aROM, end ranges of IR, ER, flexion. 2. Start gentle isometric to YTb strength as tolerated. and Progress to HEP. ice as needed. Goals still appropriate adn fair prognosis Balance/Gait/Functional tests - Balance/Special Test Scores Quick DASH Score: 25.0000 Goals Goal 1:: ST: PROM 150 elevation adn 60 ext rotation and L5 IR Goal Time Frame: 2-4 Weeks Goal Progress: Goal Met Goal 2:: LT : AROM 155 elevation adn 65 ext rotation and L4 IR Goal Time Frame: 4-6 Weeks Goal Progress: Progressing, approp Goal 3:: Reach OH without pain or hesitation Goal Time Frame: 8-12 Weeks Goal Progress: still hesitant end range Goal 4:: Pt feel 90% back to normal Goal Time Frame: 8-12 Weeks Goal Progress: 80 Goal 5:: quickdash score 14 or less Goal Time Frame: 8-12 Weeks Goal Progress: Progressing, approp Anticipated Interventions Patient/Client Instruction: Educate patient on: Condition, Plan of Care For the Purpose of:: To decrease pain, To increase ROM, To improve muscle performance and motor function, To increase tolerance to activity/condition/position Therapeutic Exercise to Include: Strength training, Passive ROM, Active ROM For the Purpose of:: To decrease pain, To increase ROM Manual Therapy Techniques to Include: Scar massage, Passive ROM, Soft tissue mobilization For the Purpose of:: To decrease pain, To increase ROM Cryotherapy (ice pack, ice massage): Yes For the Purpose of:: To decrease swelling/inflammation, To increase ROM Please do not hesitate to contact me at [phone] by phone or if you have questions or concerns regarding this new plan of care! Sincerely, Yanick Juarez, DPT, OCS, CSCS
--- NOTE | 2022-06-04 10:58 | HP.PTREVAL ---
Dr. Az Billings, DO, It has been my pleasure to treat BASHIR HIDALGO over the last 27 visits for L RCR, biceps tenodesis 02/14/22. Please see the progress note below for an update on the physical therapy plan of care! Subjective: Today is a bad pain day. Hip feels better but has shoulder and neck pain L today upon awakening. Is done with doctor.Gets day slike this for no reason 2x/week. Sleep is typically OK. Activities at home are pretty normal, he stays in the house a lot in winter. May be limited working in garage if it were summer. Objective/Function: 155 flexion, 65 ext rotation L shoulder slow, IR to L5 but slow and painful. Neck aROM L rotation and SB stiff vs R but functional. Scapular AROM WFL B. Progressing well with ROM, slowly with strength, and pain is frustrating up and down. Plan Plan: weel;y x 2-4 for checking of neck ROM, IR stretch progression and progression of strength to OTB and elevation., May do manual mobs for IR ROM. New POC and fair prognosis Balance/Gait/Functional tests - Balance/Special Test Scores Quick DASH Score: 38.6350 Goals Goal 1:: ST: PROM 150 elevation adn 60 ext rotation and L5 IR Goal Time Frame: 2-4 Weeks Goal Progress: Goal Met Goal 2:: LT : AROM 155 elevation adn 65 ext rotation and L4 IR Goal Time Frame: 4-6 Weeks Goal Progress: Goal Met Goal 3:: Reach OH without pain or hesitation Goal Time Frame: 8-12 Weeks Goal Progress: Goal Met Goal 4:: Pt feel 90% back to normal Goal Time Frame: 8-12 Weeks Goal Progress: 85% , approp Goal 5:: quickdash score 14 or less Goal Time Frame: 8-12 Weeks Goal Progress: Not Progressing, approp Goal 6:: IR to belt line without pain or hesitation and I full strength program for shouldeer. Goal Time Frame: 2-4 Weeks Goal Progress: NEW GOAL Anticipated Interventions Patient/Client Instruction: Educate patient on: Condition, Plan of Care For the Purpose of:: To decrease pain, To increase ROM, To improve muscle performance and motor function, To increase tolerance to activity/condition/position Therapeutic Exercise to Include: Strength training, Passive ROM, Active ROM For the Purpose of:: To decrease pain, To increase ROM Manual Therapy Techniques to Include: Scar massage, Passive ROM, Soft tissue mobilization For the Purpose of:: To decrease pain, To increase ROM Cryotherapy (ice pack, ice massage): Yes For the Purpose of:: To decrease swelling/inflammation, To increase ROM Please do not hesitate to contact me at [phone] by phone or if you have questions or concerns regarding this new plan of care! Sincerely, Yanick Juarez, [place], OCS, CSCS
--- NOTE | 2022-07-02 09:52 | HP.PTDCSUM ---
It has been my pleasure to treat BASHIR HIDALGO referred by Dr. Az Billings DO, with the diagnosis of L RCR, biceps tenodesis 02/14/22 for a total of 31 visit(s). Discharge Date: 07/02/22 Please see the following information for a summary of their discharge status. Subjective: Middle of the road this week. Pain after stretch for 30 minutes. 5/10 most of time. in L anterior shoulder. 8/10 after exercises and not improving. Activities at home are not doing much,. activities are normal and it just hurts. Doing dishes and laundry. basic ADLs are getting done. No f/u with doctor. L upper arm Pain Intensity (Out of 10): 0 % Improvement: 85 Objective/Function: 145 flexion. Painful arc with abduction at 90 but gets to 145. 65 er and L5 IR, pain at end range IR. Strength is 4- abd and 4 flexion and 4 er and 4+ IR and 4 bi and tri on L UE. Moving it well but frustrated with discomfort which is not responding to nerve root stretch or rest. Goal 1:: ST: PROM 150 elevation adn 60 ext rotation and L5 IR Goal Progress: Goal Met Goal 2:: LT : AROM 155 elevation adn 65 ext rotation and L4 IR Goal Progress: Goal Met Goal 3:: Reach OH without pain or hesitation Goal Progress: Goal Met Goal 4:: Pt feel 90% back to normal Goal Progress: 85% , wants less pain Goal 5:: quickdash score 14 or less Goal Progress: 16 Goal 6:: IR to belt line without pain or hesitation and I full strength program for shouldeer. Goal Progress: still sore, I strength Plan: d/c If there are questions or concerns regarding this patient's physical therapy, please feel free to call me at [phone]. Thank you for the referral of this patient. Sincerely, Yanick Juarez, DPT, OCS, CSCS Balance/Gait/Functional tests - Balance/Special Test Scores Quick DASH Score: 11.3625
== END 2022-07-02 13:25 | disposition home or self-care (01) ==
LOC: PT 09:30
PROVIDERS: PCP Family Medicine; Referring Provider Orthopaedic Surgery; Visit Provider Orthopaedic Surgery
DX: M25.512 Pain in left shoulder (principal); M75.122 Complete rotator cuff tear or rupture of left shoulder, not specified as traumatic; Z47.89 Encounter for other orthopedic aftercare; Z48.02 Encounter for removal of sutures; S43.432D Superior glenoid labrum lesion of left shoulder, subsequent encounter
CPT/HCPCS: 97110; 97140; 97161; 97164; 97530

== ENCOUNTER 2022-10-15 14:02 | Outpatient (RCR) | payer MEDICARE, OTHER, SELFPAY ==
--- NOTE | 2022-10-15 14:42 | HP.PTEVAL ---
Patient's Visit Information BASHIR HIDALGO is a 72 year old M referred to Physical Therapy by Dr. Willian Hale DO with a diagnosis of L hip OA. Date of Evaluation: 10/15/22 Physical Therapist: Yanick Juarez DPT, OCS, CSCS - Visit Plan Duration: No further skilled therap Plan: Pt wanted HEP vs therapy. I instructed him in NWB hip strength adn stretching / ROM to the hip and he will do those at home adn communicate with doctor if pain is frustrating. - Subjective Pain for a year in L hip , Not sure why it got worse. Pain is lateral and anterior. Better with rest for 2 days and then can walk without cane. 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 Worse after cleaning up and doing chores. Was carrying stuff up and down stairs and was hurting so he rested. Worse on stairs. Sleep is not interrupted. Retired. Hobbies are nothing outisde of shop. Spends time watching TV. No regular exercises. Walks sometimes but not lately. feeling good lately and just wants HEP from therapy. - Pain L hip Pain Intensity (Out of 10): 0 Pain Intensity Range: 0, 4 - Objective Walks without antalgia today into PT. [facility] bed and chair I. AROM LB mod limited in ext and flexion to 100 and ir to 8 and er to 40, R side is 45 er and 15 IR and 110 flexion. B 0 extension and tight inB psoas and quads. + L FADDIR, - BERNARDO,. reflexes 2/3 patella and achilles. Sensation LE WNL to gross lgiht touch. strength 3+ B hips rotation adn abd and ext with pain abd L. 4- flexion B. knee and ankle strength 5/5 without pain. + L hip scour. Max tight psoas - Balance/Special Test Scores Lower Extremity Functional Score: 62 - Rehabilitation Potential Physical Therapy Diagnosis: L hip degeneration leading to pain and diminished fucntion Rehabilitation Potential: Fair - Anticipated Interventions Thank you for the opportunity to evaluate your patient. For Medicare and Medicare HMO plans, please review the plan of care and approve it. It will need to be FAXED BACK to us at [phone] for Medicare purposes. For Medicare only, by signing this I certify the plan of care. Please let me know if there are questions or concerns regarding this plan of care. Physician Signature: Date:
== END 2022-10-15 19:00 | disposition home or self-care (01) ==
LOC: PT 14:02
PROVIDERS: PCP Family Medicine; Visit Provider Orthopaedic Surgery
DX: M16.12 Unilateral primary osteoarthritis, left hip (principal)
CPT/HCPCS: 97110; 97161

== ENCOUNTER → 2023-02-07 | Outpatient (CLI) | payer MEDICARE, OTHER, SELFPAY ==
--- NOTE | 2023-02-07 09:53 | MRI_ITS ---
INDICATION: assess for tear after repair, NKI, better after 1st surgery, increasing pain over last yr EXAMINATION: MRI - LEFT MR Shoulder W/O Contrast TECHNIQUE: Multiplanar and multisequence MR images of the left shoulder. IV Contrast Dosage and Agent: None. COMPARISON: Prior study dated: Radiographs from 02/04/2023 FINDINGS: Mild motion on the study limits evaluation. BONE: Anchors are noted in the humeral head associated with fixation at the anterior fibers of the supraspinatus tendon and at the subscapularis tendon. There is no bone marrow signal abnormality. ACROMIOCLAVICULAR JOINT: Mild widening of the acromioclavicular joint with small amount of fluid in the space. The gap measures 1.5 cm. This may be postoperative change. SUBACROMIAL-SUBDELTOID SPACE: There is fluid in the subacromial subdeltoid bursa with a clear connection to the joint space seen anteriorly. GLENOHUMERAL JOINT: Chondral thinning along the humeral head articulation. There is a moderate joint effusion present. Fluid present in the rotator cuff interval. ROTATOR CUFF: The repair at the subscapularis appears intact. There is a partial-thickness articular sided tear of the supraspinatus measuring 0.3 cm as seen on series 6 image 12. Mild increased fluid sensitive signal of the infraspinatus and supraspinatus may represent tendinosis. The teres minor tendon is intact. No significant rotator cuff atrophy. LABRUM: Blunted appearance of the posterior labrum, likely chronic degenerative in nature. The remaining labrum appears intact. BICEPS TENDON: The extra-articular biceps tendon is in the bicipital groove. The intra-articular biceps is not well visualized. The connection to the glenoid is not demonstrated. This could be associated with a tear. This could be also postoperative. OTHER SOFT TISSUES: Unremarkable. MRI/Upper Ext Joint Only(Routine) IMPRESSION: Moderate joint effusion at the shoulder. Mild degenerative changes at the glenohumeral joint. Widening at the acromioclavicular joint may be postoperative. Postsurgical changes at the supraspinatus and subscapularis tendons. Increased fluid sensitive signal in the supraspinatus and infraspinatus may represent tendinosis. Partial-thickness articular sided tear of the supraspinatus near the insertion. Normal appearance of the extra-articular biceps tendon. The intra-articular portion is not visualized. This could be associated with tear or previous intervention. Electronically Signed: Jose Mckeon MD at 15:15 EDT ,
== END | disposition home or self-care (01) ==
LOC: MRI 09:51
PROVIDERS: PCP Nurse Practitioner Family; Referring Provider Orthopaedic Surgery Sports Medicine; Visit Provider Orthopaedic Surgery Sports Medicine
DX: M25.512 Pain in left shoulder (principal)
CPT/HCPCS: 73221

== ENCOUNTER 2023-10-05 17:29 | Emergency (ER) | payer MEDICARE, OTHER, SELFPAY ==
[2023-10-05 17:29] VITALS: BP 129/78; PULSE 78; RESP 18; TEMP 35.9; O2SAT 98
[2023-10-05 17:30] VITALS: BP 129/78; PULSE 78; RESP 18; TEMP 35.9; O2SAT 98; BMI 29.6
--- NOTE | 2023-10-05 17:50 | CT_ITS ---
STUDY: CT BRAIN WITHOUT CONTRAST REASON FOR EXAM: Male, 73 years old. Injury/Pain -- Blunt trauma left frontal area on anticoagulant an RADIATION DOSAGE (If Supplied By Facility): CTDIvol = ( 44.99 ) mGy, DLP = ( 829.85 ) mGycm TECHNIQUE: Transaxial CT imaging of the brain was performed without administration of intravenous contrast material. Individualized dose optimization techniques were used for this CT. COMPARISON: No relevant priors. FINDINGS: Normal soft tissue structures. Normal calvarium. There is moderate cerebral atrophy with widening of the extra-axial spaces and ventricular dilatation. There are areas of decreased attenuation within the white matter tracts of the supratentorial brain, consistent with microvascular disease changes. Normal basal ganglia and thalami. Normal brainstem. Normal cerebellum. There is no intracranial hemorrhage. There are no findings of an acute ischemic infarction. Air-fluid level in the left mid x-ray sinus consistent with acute sinusitis. CT/Brain/Head without Contrast IMPRESSION: Chronic involutional changes of the brain. Electronically Signed: Abelardo Olson MD at 19:18 EDT ,
--- NOTE | 2023-10-05 18:18 | EX.ED.GENINJ ---
HPI History of Present Illness Chief Complaint: Fall Detail of Chief Complaint: Tripped over a piece of wood Informant: patient and spouse/S.O. Onset/Context/Timing Onset: Hours Mechanism/Context: Blunt Injury and Fall Location of pain/injuries: Left elbow and - (Patient has abrasion to the right forearm as well as left forearm and arm also blunt trauma proximity of the right brow) Quality of Pain: Dull and Aching Current Severity: Mild Maximum Severity: Severe Worsened by: Palpation of left elbow and movement Relieved by: Rest Associated Symptoms Associated Symptoms: Negative for Parasthesias, Weakness, Inability to ambulate, Loss of consciousness or Amnesia Narrative Narrative: Patient is a 73-year-old male. He is on an anticoagulant as well as antithrombotic. He tripped over a piece of wood. He presents with abrasions to his upper extremities as well as pain and swelling of his left elbow and blunt trauma to the left periorbital region. He denies headache. He denies double vision, blurred vision loss of vision. Eyes garrido ears decreased hearing. Denies neck pain. He denies paresthesia, anesthesia or motor weakness upper or lower extremity. He denies problems with speech or swallowing. He denies problems with coordination or balance. Tetanus is unknown Tetanus Immunization: >10 years Prior similar symptoms: No Recent Illness/Hospitalization: No PFSH PFSH Medical History Back problem Carpal tunnel syndrome Cataracts, bilateral Hematuria High cholesterol Hypertension Left shoulder pain Mass of bladder Osteoarthritis Right flank pain Shoulder pain Home Medications lisinopril 20 mg tablet 20 mg PO DAILY bp 06/10/18 [History Last Taken 10/10/21] ticagrelor 90 mg tablet (Brilinta) 90 mg PO BID blood thinner 06/10/18 [History Last Taken 10/10/21] metoprolol tartrate 50 mg tablet (Lopressor) 25 mg PO BID bp 06/11/18 [History Last Taken 10/10/21] atorvastatin 40 mg tablet 80 mg PO DAILY cholesterol 09/16/20 [History Last Taken 10/09/21] ezetimibe 10 mg tablet 10 mg PO DAILY choleserol 10/05/21 [History Last Taken 10/10/21] isosorbide mononitrate 60 mg tablet,extended release 24 hr 60 mg PO DAILY bp 10/05/21 [History Last Taken 10/10/21] nitroglycerin 0.4 mg sublingual tablet 0.4 mg sublingual Q5M PRN chestpain 10/05/21 [History Last Taken Unknown] HANDICAP PLACARD #1 ea 05/25/22 [Rx Last Taken Unknown] pantoprazole 40 mg tablet,delayed release 40 mg PO DAILY gerd #90 tabs 10/03/22 [Rx Last Taken Unknown] aspirin 81 mg tablet,delayed release (Adult Low Dose Aspirin) 81 mg PO DAILY 10/15/22 [History Last Taken Unknown] antiarthritic combination no.2 900 mg tablet (glucosamine-chondroitin) mg PO 02/04/23 [History Last Taken Unknown] empagliflozin 10 mg tablet (Jardiance) 10 mg PO DAILY 02/04/23 [History Last Taken Unknown] Allergy/AdvReac Type Severity Reaction Status Date / Time prednisone Allergy Intermediate Flushing Verified 10/05/23 17:30 tamsulosin AdvReac Severe Itching Verified 10/05/23 17:30 Family History Father Cancer Mother Hypertension Surgical History History of heart artery stent History of quadruple bypass History of right knee surgery History of shoulder surgery Social History (Updated 10/05/23 @ 18:[address] Garett Kaufman MD) household members: spouse Smoking Status: Former smoker alcohol intake: never substance use type: does not use what type of physical activity do you participate in: none ROS ROS ED Constitutional Constitutional ED: Denies chills or fever(s) Eyes Eyes: Denies blurry vision or change in vision ENT ENT ED: Denies ear pain, rhinorrhea or sore throat Cardiovascular Cardiovascular: Denies chest pain or palpitations Respiratory/Chest Respiratory/Chest: Denies dyspnea or dyspnea on exertion Gastrointestinal Gastrointestinal: Denies abdominal pain, nausea or vomiting Genitourinary Genitourinary ED: Denies hematuria Musculoskeletal Musculoskeletal: Reports other Details: HPI ; Denies arthralgias or myalgias Integumentary Reports Abrasions Neurologic Neurologic: Denies headache(s) or paresthesias Hematologic/Lymphatic Hematologic/Lymphatic: Reports easy bleeding and easy bruising EXAM Physical Exam Const Vital Signs: 10/05/23 17:30 10/05/23 17:29 10/05/23 17:49 Temperature 96.7 F L 96.7 F L Temperature Source Temporal Temporal Pulse Rate 78 78 Respiratory Rate 18 18 Respiratory Effort Normal Non-Labored Respiratory Depth Normal Respiratory Pattern Normal Blood Pressure 129/78 H 129/78 H Blood Pressure Mean 95 95 Pulse Ox 98 98 Oxygen Delivery Method Room Air Room Air Room Air Positive well nourished and well developed General Appearance ED: well developed and NAD HEENT Reports TM's clear HEENT Narrative: There is no current findings of basilar skull fracture. trauma Nose: Negative for septum abnormal Tympanic Membrane ED: Yes TM's clear Eyes PERRL and EOMs intact bilaterally General Eye ED: Yes other Other Details: There is no subconjunctival hemorrhage. Neck full ROM Neck Narrative: There is no midline posterior neck pain and full active range of motion. Chest Wall inspection of chest normal Chest Narrative: There is no pain the patient over the ribs on the left or right. There is no crepitus. Resp normal respiratory effort and clear to auscultation bilaterally Cardio regular rhythm, S1 normal heart sound, S2 normal heart sound and no murmurs Rate: regular rate GI normal to inspection, nondistended, normoactive bowel sounds and no masses; Negative for non-tender or non-distended GI Narrative: Patient has a hematoma noted anterior x-ray line lower left region. The hematoma is probably 4 x 9 cm in size. There is no evidence of trauma or tenderness in the left upper quadrant or right upper quadrant. There is no crepitus subcutaneous air noted. Back/Spine normal to inspection and no thoracic nor lumbar tenderness Extremity Negative for normal to inspection or full ROM Extremity Narrative: There is swelling with pain outpatient over the medial epicondyle and supracondylar region on the left. There is no pain the patient over the lateral epicondyles or olecranon process. There is no pain ovation over the proximal humerus, clavicle or AC joint. There is no pain ovation of the distal radius ulna, carpal bones or metacarpal bones on the left. Axillary, median, radial and ulnar function intact. Radial pulses 2+ and symmetric. Patient has abrasions noted right and left forearm and left arm as well. There is also is minimal skin tears. Neuro oriented x3, CN's II-XII intact bilaterally, moves all extremities, no focal motor deficits and no sensory deficits noted [place] Coma Scale: document GCS findings Spontaneous Obeys Commands Oriented 15 Plantar Reflex: Downgoing: bilateral Psych mental status grossly normal and thought process normal Skin Trauma: abrasion MDM MDM MDM Narrative Medical decision making narrative: Based on the CT [place] rule and Bruneian CT head rule imaging of the head is indicated. CT was ordered. X-ray of the left elbow was ordered based on physical findings and history. This was obtained to rule out hematoma/contusion on anticoagulant versus fracture. Radiography Chest X-Ray - ED: Read by ED Physician (Three-view x-ray of the left elbow was obtained and reviewed interpreted by me at 1900 as negative for any fracture. There is no anterior posterior fat pad. There is no subluxation dislocation.) Diagnostic Testing: Clinical Impression(s) from Imaging Studies Brain CT 10/05/23 17:50 IMPRESSION: Chronic involutional changes of the brain. Electronically Signed: Abelardo Olson MD at 19:18 EDT Reading Location ID and State: [facility] [place] / [employer] , Service support , Elbow X-Ray 10/05/23 18:50 IMPRESSION: Normal x-ray examination of the elbow. Electronically Signed: Abelardo Olson MD at 19:15 EDT Reading Location ID and State: [facility] [place] / [employer] , Service support , CT of the head without contrast was reviewed by me at 1900. There is no evidence of subdural hematoma, epidural hematoma, intraparenchymal contusion or traumatic subarachnoid hemorrhage. There is no evidence of fracture. Awaiting formal read by radiologist. Radiology reports reviewed. In agreement with my reads. Discharge Plan Triage Chief Complaint: Fall ED Provider: Garett Kaufman Dx/Rx/DC Orders Clinical Impression: Anticoagulant long-term use, Antiplatelet or antithrombotic long-term use, Multiple skin tears, Contusion of left elbow, initial encounter, Contusion of head Instructions: ED Contusion, Elbow, ED Facial Contusion, ED Skin Tear (Skin Avulsion) Prescriptions: No Action lisinopril 20 mg tablet 20 mg PO DAILY Brilinta 90 mg tablet 90 mg PO BID Hold Instructions: Resume on 10/27/21. metoprolol tartrate [Lopressor] 50 mg tablet 25 mg PO BID atorvastatin 40 mg tablet 80 mg PO DAILY isosorbide mononitrate 60 mg tablet extended release 24 hr 60 mg PO DAILY ezetimibe 10 mg tablet 10 mg PO DAILY nitroglycerin 0.4 mg tablet, sublingual 0.4 mg sublingual Q5M PRN (Reason: chestpain) Rx Instructions: do not exceed 3 doses per episode (DME) HANDICAP PLACARD See Rx Instructions .Route .MEDSUPPLY Qty: 1 0RF Rx Instructions: LENGTH OF TIME: 5 years Diagnosis: Disability aspirin [Adult Low Dose Aspirin] 81 mg tablet,delayed release (DR/EC) 81 mg PO DAILY Jardiance 10 mg tablet 10 mg PO DAILY glucosamine-chondroitin 900 mg tablet PO pantoprazole 40 mg tablet,delayed release (DR/EC) 40 mg PO DAILY Qty: 90 3RF Primary Care Provider: Danis Oropeza Referrals: Danis Oropeza, [facility] [Primary Care Provider] - As Needed Disposition Disposition: Home, Self Care
[2023-10-05] MEDS: Diphth,Pertuss(Acell),Tet Vac 0.5 ML Vial IM (18:19)
--- NOTE | 2023-10-05 18:50 | RAD_ITS ---
STUDY: X-RAY - LEFT ELBOW REASON FOR EXAM: Male, 73 years old. Injury/Pain TECHNIQUE: 3 view(s) of the elbow. COMPARISON: None. FINDINGS: Normal visualized humerus, radius and ulna. Normal radiocapitellar and ulnotrochlear articulations. The soft tissue structures are unremarkable. RAD/Elbow min 3 Views IMPRESSION: Normal x-ray examination of the elbow. Electronically Signed: Abelardo Olson MD at 19:15 EDT ,
[2023-10-05 19:29] VITALS: BP 109/80; PULSE 67; RESP 16; TEMP 36.9; O2SAT 96
== END 2023-10-05 20:03 | disposition home or self-care (01) ==
PROVIDERS: Emergency Provider Emergency Medicine; PCP Nurse Practitioner Family; Visit Provider Emergency Medicine
DX: S50.02XA Contusion of left elbow, initial encounter (principal); Z87.891 Personal history of nicotine dependence; W01.10XA Fall on same level from slipping, tripping and stumbling with subsequent striking against unspecified object, initial encounter; E78.00 Pure hypercholesterolemia, unspecified; I10 Essential (primary) hypertension; Z79.899 Other long term (current) drug therapy; Z79.82 Long term (current) use of aspirin; M19.90 Unspecified osteoarthritis, unspecified site; Z79.01 Long term (current) use of anticoagulants; Z79.02 Long term (current) use of antithrombotics/antiplatelets; S00.93XA Contusion of unspecified part of head, initial encounter; S50.811A Abrasion of right forearm, initial encounter; S50.812A Abrasion of left forearm, initial encounter
CPT/HCPCS: 70450; 73080; 90715; 99282

== ENCOUNTER 2024-07-15 06:07 | Day surgery (SDC) | payer MEDICARE, OTHER, SELFPAY ==
--- NOTE | 2024-07-03 07:45 | EKG12_ITS ---
Test Reason : PREOP Blood Pressure : */* mmHG Vent. Rate : 71 BPM Atrial Rate : 71 BPM P-R Int : 170 ms QRS Dur : 92 ms QT Int : 408 ms P-R-T Axes : 33 27 49 degrees QTcB Int : 443 ms Normal sinus rhythm Normal ECG Confirmed by ELIO HERR, DILCIA ([id number]), subeditor ASIF FATIMA ([id number]) on 07/04/2024 7:09:59 AM Referred By: Juan Raman Confirmed By: DILCIA BALLARD MD
[2024-07-03 08:10] LABS: Hematocrit 38.3 % (40-54); Hemoglobin 12.1 g/dL (13.0-16.5); Mean Corp Hgb Conc 31.6 g/dL (32-36); Mean Corpuscular Hgb 28.7 pg (27.0-32.0); Mean Platelet Vol. 10.2 fl (6.2-12.0); Platelet Count 175 K/mm3 (150-450); RBC Distribution Width CV 13.7 % (11.6-14.6); Red Blood Count 4.21 M/mm3 (4.6-6.2); White Blood Count 7.2 K/mm3 (4.4-11.0)
[2024-07-03 08:30] LABS: Anion Gap 6 (5-15); BUN 24 mg/dL (7-18); BUN/Creat Ratio 19.7 RATIO (10-20); Calcium,Total 9.7 mg/dL (8.5-10.1); Chloride 108 mmol/L (98-107); Creatinine, Serum 1.22 mg/dL (0.70-1.30); EST Glomerular Filtration Rate 62 mL/min (>60); Est Glom Filt Rate - Afr Amer 75 mL/min (>60); Glucose 144 mg/dL (74-106); Potassium 4.6 mmol/L (3.5-5.1); Sodium Level 140 mmol/L (136-145)
[2024-07-05 16:32] LABS: Hemoglobin A1c 6.8 % (3.8-5.6)
--- NOTE | 2024-07-07 16:40 | PAT.ANESEVAL ---
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 When Was Last Pacemaker Check QUESTION #4 FULL TEXT: You/Your Family Experience fever (hyperthermia) with Anesthesia Last Oral Intake Last Oral intake: Last Oral Intake NPO since Meds taken in AM with sips of water? Meds patient instructed to take am of surgery PONV PONV - chemical operator: PONV - chemical operator Female No 07/01/24 15:18 HX of Motion Sickness No 07/01/24 15:18 HX of N/V After Surgery No 07/01/24 15:18 Non-Smoker Yes 07/01/24 15:18 Duration of Surgery greater Yes 07/01/24 15:18 than 60 minutes Number of Risk Factors 2 07/01/24 15:18 PONV Score Moderate Risk 07/01/24 15:18 Height & Weight Height & Weight: Anesthesia: Height & Weight Height 5 ft 10 in 10/05/23 17:30 Respiratory Assessment Respiratory Assessment - chemical operator: Respiratory Tract Infection Hx - chemical operator Hx Respiratory Tract Infection No 07/01/24 15:18 STOP Sleep Apnea STOP Sleep Apnea - chemical operator: STOP Sleep Apnea - chemical operator Hx Hypertension Yes: CONTROLLED WITH MEDS 07/01/24 15:18 Hx Sleep Apnea No 07/01/24 15:18 CPAP BIPAP Do you snore loudly (louder Yes 07/01/24 15:18 than talking or can be heard Do you often feel tired/ No 07/01/24 15:18 fatigued/ sleepy during daytime? Has anyone observed you stop No 07/01/24 15:18 breathing during sleep? STOP Results Positive 07/01/24 15:18 QUESTION #5 FULL TEXT : Do you snore loudly (louder than talking or can be heard through closed doors)? Tobacco Use History Tobacco Use History - chemical operator: Tobacco Use History - chemical operator Tobacco Use Smoking Status Former smoker 07/01/24 15:18 Hx Tobacco Use No 07/01/24 15:18 Years Smoking Packs Smoked per Day Smoking Cessation Date was Yes - quit smoking within 15 07/01/24 15:18 within the last 15 years years Hx Smoking Cessation Date 11/23/14 07/01/24 15:18 Hx Smoking Cessation No 07/01/24 15:18 Counseling Hematologic Medial History Hematologic Hx - chemical operator: Hematologic Medical Hx - microsoft architect Hx of Blood Transfusion Yes 07/01/24 15:18 Hx of Transfusion in last 3 No 07/01/24 15:18 Months Date of Last Transfusion (if within last 3 months) Ever experience any problems No 07/01/24 15:18 with transfusion(s)? Specify any problems Hx of Preganancy in last 3 N/A 07/01/24 15:18 Months Nurse Filling Out Transfusion DSCHRIBER 07/01/24 15:18 & Questions: Date: 07/01/24 07/01/24 15:18 Time: 15:20 07/01/24 15:18 Patient unable to answer at this time (ie. confused, unrespo /Reproduction History /Reproductive History - chemical operator: /Reproductive Hx- chemical operator Hx Now No 07/01/24 15:18 Gestational Age (in weeks): EDC: Hx Hx Para Hx Section SAB No 07/01/24 15:18 PFSH Medical History (Updated 07/01/24 @ 15:37 by Karen Brown) Loss of hearing Wears glasses Wears dentures Cancer Alcohol use Diabetes Arthritis Bladder disease Restless legs Injury of back Back pain History of ulceration Gastric reflux Former smoker History of pain when walking History of stress test History of echocardiogram Cardiology follow-up encounter History of heart attack Hx of retinal detachment Right flank pain Hematuria Osteoarthritis High cholesterol Hypertension Home Medications ?Medication ?Instructions ?Recorded ?Last Taken ?Type lisinopril 20 mg tablet 20 mg PO DAILY bp 06/10/18 10/10/21 History ticagrelor 90 mg tablet (Brilinta) 90 mg PO BID blood thinner 06/10/18 10/10/21 History metoprolol tartrate 50 mg tablet 25 mg PO BID bp 06/11/18 10/10/21 History (Lopressor) atorvastatin 40 mg tablet 80 mg PO QHS cholesterol 09/16/20 10/09/21 History ezetimibe 10 mg tablet 10 mg PO DAILY choleserol 10/05/21 10/10/21 History isosorbide mononitrate 60 mg 60 mg PO DAILY bp 10/05/21 10/10/21 History tablet,extended release 24 hr nitroglycerin 0.4 mg sublingual 0.4 mg sublingual Q5M PRN chestpain 10/05/21 Unknown History tablet HANDICAP PLACARD #1 ea 05/25/22 Unknown Rx pantoprazole 40 mg tablet,delayed 40 mg PO DAILY gerd #90 tabs 10/03/22 Unknown Rx release aspirin 81 mg tablet,delayed 81 mg PO DAILY 10/15/22 Unknown History release (Adult Low Dose Aspirin) empagliflozin 10 mg tablet 10 mg PO DAILY 02/04/23 Unknown History (Jardiance) Allergy/AdvReac Type Severity Reaction Status Date / Time prednisone Allergy Intermediate Flushing Verified 07/01/24 15:09 tamsulosin AdvReac Severe Itching Verified 07/01/24 15:09 Family History Father Cancer Mother Hypertension Surgical History (Updated 07/01/24 @ 15:37 by Karen Brown) History of cardiac catheterization History of carpal tunnel surgery of right wrist Hx of right cataract extraction Hx of left cataract extraction History of transurethral resection of bladder tumor (TURBT) Hx of arthroscopy of shoulder History of shoulder surgery History of right knee surgery History of quadruple bypass History of heart artery stent Social History (Updated 10/05/23 @ 18:[address] Garett Kaufman MD) household members: spouse Smoking Status: Former smoker alcohol intake: never substance use type: does not use what type of physical activity do you participate in: none Audit: Pertinent Findings Pertinent Findings EKG Perinent findings: July 03, 2024. Normal sinus rhythm. Stress test pertinent findings: July 05, 2021. Negative exercise treadmill test by EKG criteria. Moderate area of infarction in the inferior wall. No significant residual myocardial ischemia. Ejection fraction is 40%. Echo (EF%) pertinent findings: July 10, 2022. Ejection fraction 55%. No significant valvular abnormalities. Heart catheterization pertinent findings: July 12, 2021. 1. Coronary artery disease?double vessel disease. 2. Status post CABG x 3 grafts with 2 patent grafts and 1 occluded graft. The SVG to the first OM is occluded. 3. Left ventricular ejection fraction is 40 to 45% with inferior/inferior apical wall hypokinesis. Consult pertinent findings: March 12, 2023. Jonatan King cardiology at [facility]. 1. Coronary artery disease-patient has a history of 3 stents in 2015. A coronary artery bypass graft in 2014. He drug-eluting stent placed to the first OM of the circumflex in 2018. And a VERITO to the inferior ramus of the first OM in 2019. Last cardiac cath was in 2021 and is shown above with no changes from previous catheterization. Given the patient's chest pain he was started on Imdur and is doing well. 2. Congestive heart failure-latest echocardiogram shows a ejection fraction of 55%. Patient is well compensated. Pulmonary function results/spirometer pertinent findings: August 19, 2017. Pulmonary function tests are grossly within normal limits. Recommendation Anesthesia Recommendation Anesthesia recommendation: OPTIMIZED for anesthesia
[2024-07-15] VITALS (12 sets, daily range): BP systolic 87–131; BP diastolic 61–102; PULSE 73–82; RESP 16–19; TEMP 36.3–37; O2SAT 94–100; BMI 31.9
[2024-07-15] MEDS: 0.9% Normal Saline (1000mL) 1,000 ML 15 ML IV (06:49)
[2024-07-15 07:12] LABS: Bedside Glucose 187 mg/dL (74-106)
--- NOTE | 2024-07-15 07:24 | PRE.ANES_ITS ---
ASA Classification* ASA Classification ASA Classification: 3 Assessment & Plan Anesthesia* Anesthesia Assessment Anesthesia Assessment: Discussed sedation and/or anesthesia options, risks, benefits, and alternatives with patient/parents/legal guardian/POA. Questions invited. The patient/parents/legal guardian/POA seems to understand and agrees to proceed with anesthesia plan. Reviewed the physical assessment, medical history, allergy history and patient home medications list prior to surgery/procedure/anesthetic and documented any changes. Performed airway and anesthesia risk assessments. Anesthesia Type Anesthesia Type: General History Source History Obtained from:: Patient and Chart Anesthesia Focused Assessment* Temperature: 98.6 F Pulse Rate: 76 Blood Pressure: 116/61 Respiratory Rate: 18 Pulse Ox: 100 Oxygen Delivery Method: Room Air Airway Assessment Mouth opens: >3 cm Mallampati Score: I Teeth Condition: Dentures (Patient has full upper and lower dentures. They are out.) Neck Range of motion (ROM): Full ROM Focused Labs Anesthesia Preop lab: CBC WBC 7.2 K/mm3 (4.4-11.0) 07/03/24 07:40 07/03/24 RBC 4.21 M/mm3 (4.6-6.2) L 07/03/24 07:40 07/03/24 Hgb 12.1 g/dL (13.0-16.5) L 07/03/24 07:40 5 Hct 38.3 % (40-54) L 07/03/24 07:40 07/03/24 Plt Count 175 K/mm3 (150-450) 07/03/24 07:40 07/03/24 CHEMISTRY Potassium 4.6 mmol/L (3.5-5.1) 07/03/24 07:40 07/03/24 Sodium 140 mmol/L (136-145) 07/03/24 07:40 07/03/24 Magnesium 2.3 mg/dL (1.6-2.6) 07/05/17 11:06 07/05/17 BUN 24 mg/dL (7-18) H 07/03/24 07:40 07/03/24 Creatinine 1.22 mg/dL (0.70-1.30) 07/03/24 07:40 07/03/24 Glucose 144 mg/dL (74-106) H 07/03/24 07:40 07/03/24 POC Glucose 187 mg/dL (74-106) H 07/15/24 06:36 07/15/24 TSH 0.43 uIU/mL (0.358-3.74) 10/05/21 10:58 COAG PT 13.1 SECONDS (11.7-14.9) 10/11/21 12:49 Pre-Assessment Diagnosis/Proposed Procedure Planned Operative Procedure(s): CYSTO TURBT LARGE WITH MITOMYCIN C Anesthesia History Anesthesia History - physician in private practice: Anesthesia History - physician in private practice Hx Hospitalization No 07/01/24 15:18 Any Problems With Anesthesia No 07/01/24 15:18 Cholinesterase deficiency No 07/01/24 15:18 You/Your Family Experience No 07/01/24 15:18 fever (hyperthermia) with Relationship Recent Exposure to Contagious No 07/15/24 06:45 Disease Does patient have nerve No 07/01/24 15:18 stimulator Patient instructed to have device shut off --Does patient have Pacemaker No 07/15/24 06:45 or ICD? When Was Last Pacemaker Check QUESTION #4 FULL TEXT: You/Your Family Experience fever (hyperthermia) with Anesthesia Last Oral Intake Last Oral intake: Last Oral Intake NPO since 20:20 07/15/24 06:45 Meds taken in AM with sips of Yes 07/15/24 06:45 water? Meds patient instructed to PROTONIX,METOPROLOL, 07/15/24 06:45 take am of surgery ISOSORBIDE Any additional information?: Yes Meds taken in AM with sips of water?: Yes PONV PONV - physician in private practice: PONV - physician in private practice Female No 07/01/24 15:18 HX of Motion Sickness No 07/01/24 15:18 HX of N/V After Surgery No 07/01/24 15:18 Non-Smoker Yes 07/01/24 15:18 Duration of Surgery greater Yes 07/01/24 15:18 than 60 minutes Number of Risk Factors 2 07/01/24 15:18 PONV Score Moderate Risk 07/01/24 15:18 Height & Weight Height & Weight: Anesthesia: Height & Weight Height 5 ft 10 in 07/15/24 06:45 Weight: 101 kg 07/15/24 06:45 Body Mass Index (BMI) 31.9 07/15/24 06:45 Respiratory Assessment Respiratory Assessment - physician in private practice: Respiratory Tract Infection Hx - physician in private practice Hx Respiratory Tract Infection No 07/01/24 15:18 STOP Sleep Apnea STOP Sleep Apnea - physician in private practice: STOP Sleep Apnea - physician in private practice Hx Hypertension Yes: CONTROLLED WITH MEDS 07/01/24 15:18 Hx Sleep Apnea No 07/01/24 15:18 CPAP BIPAP Do you snore loudly (louder Yes 07/01/24 15:18 than talking or can be heard Do you often feel tired/ No 07/01/24 15:18 fatigued/ sleepy during daytime? Has anyone observed you stop No 07/01/24 15:18 breathing during sleep? STOP Results Positive 07/01/24 15:18 QUESTION #5 FULL TEXT : Do you snore loudly (louder than talking or can be heard through closed doors)? 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 Specify any problems Hx of Preganancy in last 3 N/A 07/01/24 15:18 Months Nurse Filling Out Transfusion DSCHRIBER 07/01/24 15:18 & Questions: Date: 07/01/24 07/01/24 15:18 Time: 15:20 07/01/24 15:18 Patient unable to answer at this time (ie. confused, unrespo /Reproduction History /Reproductive History - physician in private practice: /Reproductive Hx- physician in private practice Hx Now No 07/01/24 15:18 Gestational Age (in weeks): EDC: Hx Hx Para Hx Section SAB No 07/01/24 15:18 Active Medications Active Medications: Current Medications Generic Name Dose Route Start Last Admin Trade Name Freq PRN Reason Stop Dose Admin Cefazolin Sodium 2 gm/ N/A 20 mls @ 400 mls/hr 07/15/24 09:05 IV 07/15/24 09:07 PREOP ONE Mitomycin 40 mg/ N/A 40 mls @ 2,400 mls/hr 07/15/24 09:05 INSTILLAT 07/15/24 09:06 X1 ONE Sodium Chloride 1,000 mls @ 15 mls/hr 07/15/24 06:20 07/15/24 06:49 IV 07/20/24 19:39 15 mls/hr .Q48H RODGER Administration Protocol [facility] Medical History Loss of hearing Wears glasses Wears dentures Cancer Alcohol use Diabetes Arthritis Bladder disease Restless legs Injury of back Back pain History of ulceration Gastric reflux Former smoker History of pain when walking History of stress test History of echocardiogram Cardiology follow-up encounter History of heart attack Hx of retinal detachment Right flank pain Hematuria Osteoarthritis High cholesterol Hypertension Home Medications ?Medication ?Instructions ?Recorded ?Last Taken ?Type lisinopril 20 mg tablet 20 mg PO DAILY bp 06/10/18 0 10/10/21 History ticagrelor 90 mg tablet (Brilinta) 90 mg PO BID blood thinner 06/10/18 07/05/24 History metoprolol tartrate 50 mg tablet 25 mg PO BID bp 06/1107/15/24 History (Lopressor) atorvastatin 40 mg tablet 80 mg PO QHS cholesterol 10/09/21 History ezetimibe 10 mg tablet 10 mg PO DAILY choleserol 10/10/21 History isosorbide mononitrate 60 mg 60 mg PO DAILY bp 2 07/15/24 History tablet,extended release 24 hr nitroglycerin 0.4 mg sublingual 0.4 mg sublingual Q5M PRN chestpain 10/05/21 Unknown History tablet HANDICAP PLACARD #1 ea 05/25/22 Unknown Rx pantoprazole 40 mg tablet,delayed 40 mg PO DAILY gerd #90 tabs 10/03/22 07/15/24 Rx release aspirin 81 mg tablet,delayed 81 mg PO DAILY 10/15/22 0 07/05/24 History release (Adult Low Dose Aspirin) empagliflozin 10 mg tablet 10 mg PO DAILY 02/04/23 History (Jardiance) Allergy/AdvReac Type Severity Reaction Status Date / Time prednisone Allergy Intermediate Flushing Verified 07/15/24 06:43 tamsulosin AdvReac Severe Itching Verified 07/15/24 06:43 Family History Father Cancer Mother Hypertension Surgical History History of cardiac catheterization History of carpal tunnel surgery of right wrist Hx of right cataract extraction Hx of left cataract extraction History of transurethral resection of bladder tumor (TURBT) Hx of arthroscopy of shoulder History of shoulder surgery History of right knee surgery History of quadruple bypass History of heart artery stent Social History household members: spouse Smoking Status: Former smoker alcohol intake: never substance use type: does not use what type of physical activity do you participate in: none Review of Systems (Anesthesia) ROS Narrative System reviewed and no additional complaints, except as documented.
--- NOTE | 2024-07-15 08:24 | DCINST_ITS ---
Discharge Instructions Diet Discharge Diet: No restrictions DC O2, CPAP, BIPAP needs Home O2 Discharge instructions: No Dressing / Incision Discharge Activity: Return to Normal Activity and May Not Drive (while taking narcotic pain medications.) Dressing / Incision Call your doctor if you observe: Fever of 101 or Higher Follow Up Care Please Follow Up With: Juan Raman MD When: Call [phone] for an appointment Test Results: Test results from this visit will be discussed in further detail at your follow- up appointment, if applicable. Discharge Plan Admission Attending Provider: Juan Raman Primary Care Provider: Danis Oropeza Instructions Print Language: Mexican Discharge Orders/Prescriptions Prescriptions: No Action lisinopril 20 mg tablet 20 mg PO DAILY Brilinta 90 mg tablet 90 mg PO BID metoprolol tartrate [Lopressor] 50 mg tablet 25 mg PO BID atorvastatin 40 mg tablet 80 mg PO QHS isosorbide mononitrate 60 mg tablet extended release 24 hr 60 mg PO DAILY ezetimibe 10 mg tablet 10 mg PO DAILY nitroglycerin 0.4 mg tablet, sublingual 0.4 mg sublingual Q5M PRN (Reason: chestpain) Rx Instructions: do not exceed 3 doses per episode (DME) HANDICAP PLACARD See Rx Instructions .Route .MEDSUPPLY Qty: 1 0RF Rx Instructions: LENGTH OF TIME: 5 years Diagnosis: Disability aspirin [Adult Low Dose Aspirin] 81 mg tablet,delayed release (DR/EC) 81 mg PO DAILY Jardiance 10 mg tablet 10 mg PO DAILY pantoprazole 40 mg tablet,delayed release (DR/EC) 40 mg PO DAILY Qty: 90 3RF Referrals / Follow Up: Danis Oropeza, METALLURGICAL LAB TECHNICIAN-C [Primary Care Provider] - Disposition Disposition (needs filled in before D/C Order can be placed): Home, Self Care
--- NOTE | 2024-07-15 08:24 | PCM.HP.STD ---
HPI - General General Date of Service: 07/15/24 Chief Complaint: Bladder cancer HPI Narrative BASHIR HIDALGO, is a 73 M who presents for surgery to resect a large bladder tumor that appears to be bladder cancer PFSH Medical History Loss of hearing Wears glasses Wears dentures Cancer Alcohol use Diabetes Arthritis Bladder disease Restless legs Injury of back Back pain History of ulceration Gastric reflux Former smoker History of pain when walking History of stress test History of echocardiogram Cardiology follow-up encounter History of heart attack Hx of retinal detachment Right flank pain Hematuria Osteoarthritis High cholesterol Hypertension Home Medications ?Medication ?Instructions ?Recorded ?Last Taken ?Type lisinopril 20 mg tablet 20 mg PO DAILY bp 06/10/18 10/10/21 History ticagrelor 90 mg tablet (Brilinta) 90 mg PO BID blood thinner 06/10/18 07/05/24 History metoprolol tartrate 50 mg tablet 25 mg PO BID bp 06/11/18 07/15/24 History (Lopressor) atorvastatin 40 mg tablet 80 mg PO QHS cholesterol 09/16/20 10/09/21 History ezetimibe 10 mg tablet 10 mg PO DAILY choleserol 10/05/21 10/10/21 History isosorbide mononitrate 60 mg 60 mg PO DAILY bp 10/05/21 07/15/24 History tablet,extended release 24 hr nitroglycerin 0.4 mg sublingual 0.4 mg sublingual Q5M PRN chestpain 10/05/21 Unknown History tablet HANDICAP PLACARD #1 ea 05/25/22 Unknown Rx pantoprazole 40 mg tablet,delayed 40 mg PO DAILY gerd #90 tabs 10/03/22 07/15/24 Rx release aspirin 81 mg tablet,delayed 81 mg PO DAILY 10/15/22 07/05/24 History release (Adult Low Dose Aspirin) empagliflozin 10 mg tablet 10 mg PO DAILY 02/04/23 07/11/24 History (Jardiance) Allergy/AdvReac Type Severity Reaction Status Date / Time prednisone Allergy Intermediate Flushing Verified 07/15/24 06:43 tamsulosin AdvReac Severe Itching Verified 07/15/24 06:43 Family History Father Cancer Mother Hypertension Surgical History History of cardiac catheterization History of carpal tunnel surgery of right wrist Hx of right cataract extraction Hx of left cataract extraction History of transurethral resection of bladder tumor (TURBT) Hx of arthroscopy of shoulder History of shoulder surgery History of right knee surgery History of quadruple bypass History of heart artery stent Social History household members: spouse Smoking Status: Former smoker alcohol intake: never substance use type: does not use what type of physical activity do you participate in: none Vital Signs Vital Signs Vital Signs: 07/15/24 06:45 07/15/24 06:45 07/15/24 07:35 Temperature 98.6 F 98.6 F Temperature Source Temporal Pulse Rate 76 76 Respiratory Rate 18 18 Respiratory Pattern Normal Blood Pressure 116/61 116/61 Blood Pressure Mean 79 Blood Pressure Source Monitor Blood Pressure Position Sitting Blood Pressure Location Left Arm Pulse Ox 100 100 Oxygen Delivery Method Room Air Room Air Weight Weight: 101 kg Body Mass Index (BMI) 31.9 Results Lab / Micro Data 07/03/24 07:40 07/03/24 07:40 Labs: Laboratory Results - last 24 hr 07/15/24 06:36: POC Glucose 187 H
[2024-07-15] MEDS: Cefazolin 2 GM in Syringe IV (08:34)
--- NOTE | 2024-07-15 08:35 | BLB_PTH ---
PATIENT: BASHIR OROPEZA LOC: [facility] [place] U#:[id number] AGE/SX: 73/M ROOM: RE07/15/[address]: Dr. 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 See cancer summary in the comment section. SJ.mr 07/16/2024 COMMENT BLADDER CANCER (TUR) SUMMARY Procedure: Transurethral resection of bladder tumor (TURBT) Tumor site: Not specified Histologic type: Papillary urothelial carcinoma, noninvasive Associated epithelial lesions: None identified Histologic grade: Low grade (1/3) Tumor configuration: Papillary and endophytic Muscularis propria presence: muscularis propria (detrusor muscle) present and free of tumor Lymphvascular invasion: Not identified Tumor extension: Noninvasive papillary carcinoma. 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 MICROSCOPIC DESCRIPTION Slides are reviewed. GROSS DESCRIPTION Received in fixative is one container labeled with the patient's name and designated Bladder tumor. The specimen consists of multiple irregular fragments of light keys soft tissue that in aggregate measure 4 x 4 x 1 cm. The specimen is totally submitted in ten cassettes. 07/15/2024 TC:0 CPT:55983
[2024-07-15] MEDS: MitoMYcin 40 MG in Syringe 1 EACH 2400 MG INSTILLAT (09:29)
--- NOTE | 2024-07-15 09:32 | OP.PCM_ITS ---
Operative Report (Standard) Operative Information Date of Procedure: 07/15/24 Pre-Operative Diagnosis: Large bladder tumor multiple Post-Operative Diagnosis: The same Surgery/Procedure Performed: Transurethral resection of multiple large bladder tumors greater than 5 cm in size and instillation of Mitomycin-C insurance sales associate: No Type of Anesthesia: General RN Documented Start/Stop Times: Operation Date: 07/15/24 08:35 Case Time Into Pre-Op 07/15/24 06:17 Out of Pre-Op 07/15/24 08:16 Anesthesia Start 07/15/24 08:20 Into Room 07/15/24 08:20 Procedure Start 07/15/24 08:37 Procedure End 07/15/24 09:27 Procedure Start Time: 08:37 Procedure Stop Time: :27 Select all DRAINS/GRAFTS/IMPLANTS that apply: None Special Medications: Mitomycin-C Estimated Blood Loss: 0 Specimen collected: Yes Description of specimen(s) removed: Bladder tumor resected Description of surgery: Patient presented to the hospital for treatment of a tumor that was found in the bladder with a very large bladder tumor. Patient understands is possible it may not be able to resect the entire tumor. Patient also understands is possible that the patient may need multiple procedures or more invasive procedures to cure him of this cancer. Patient was taken back to the operating room after smooth induction of anesthesia the patient was placed supine on the table. The patient was placed in dorsolithotomy position. The urethra and genitals prepped and draped in usual sterile fashion. I went into the bladder with a 30 degree lens and a cystoscope was performed and identified the tumor patient had multiple tumors throughout the bladder covering the left lateral wall dome, posterior wall, right lateral wall. In total the tumors were greater than 5 cm in size occupying many overlapping sites in the bladder. The right and left ureteral orifice were identified. The tumor was involved not invoved in the ureteral orifices. I then placed the Olympus bipolar resectoscope with a large loop into the bladder. I then started resected the tumors and started superficially shaving small little pieces working my way to the base of the tumor. As I went along I then cauterize any bleeders that were encountered during the resection. The tumor pieces were then flushed out of the bladder and continued resecting the tumor until finally I got down to the base of the tumor and the muscle of the bladder. The Ellik was used then to evacuate all the tumor pieces out of the bladder. I then cauterized extensively the tumors and also circumferentially around where the tumors were. Again we made sure to evacuate all the pieces out the bladder. I made sure there was no more bleeding from the base of the bladder and then over the tumor pieces were then evacuated out and sent off as a specimen. After the resection of the entire tumor was completed then treatment with Mitomycin-C was performed. We then placed the catheter in the bladder and the patient was taken back to the PACU in stable condition. Surgical Findings: Multiple large tumors within the bladder appears to be high-grade did not appear invasive into muscle Complications Complications: No Admit VTE Documentation VTE Present on Admission: No VTE Mechan Device Prophylaxis: SCD's VTE Pharm Prophylaxis ordered?: No
--- NOTE | 2024-07-15 09:46 | PCM.POST.ANE ---
Anesthesia: Postop Eval I Current Vital Signs Temperature: 97.5 F Pulse Rate: 77 Blood Pressure: 131/78 Respiratory Rate: 16 Pulse Ox: 94 Oxygen Delivery Method: Nasal Cannula Oxygen Flow Rate (L/min): 4 Assessment Airway patent: Yes Spontaneous unlabored respirations: Yes Mental status: Awake nausea: No Vomiting: No Anesthesia Complication: No Fluid Hydration Crystalloid volume administer (ml): 500 Total IV fluid infused: 500 Progress Note Anesthesia document: Postop Eval 1 completed: Yes
--- NOTE | 2024-07-15 09:48 | PCM.POST.ANE ---
Anesthesia: Postop Eval I Current Vital Signs Temperature: 98.3 F Pulse Rate: 77 Blood Pressure: 131/87 Respiratory Rate: 18 Pulse Ox: 98 Assessment Airway patent: Yes Spontaneous unlabored respirations: Yes nausea: No Vomiting: No Anesthesia Complication: No Fluid Hydration Crystalloid volume administer (ml): 0 Total IV fluid infused: 0 Progress Note Anesthesia document: Postop Eval 1 completed: Yes
--- NOTE | 2024-07-15 11:30 | PCM.POST.ANE ---
Anesthesia: Postop Eval I Current Vital Signs Temperature: 97.5 F Pulse Rate: 78 Blood Pressure: 132/78 Respiratory Rate: 16 Pulse Ox: 99 Oxygen Delivery Method: Room Air Assessment Airway patent: Yes Spontaneous unlabored respirations: Yes nausea: No Vomiting: No Anesthesia Complication: No Fluid Hydration Crystalloid volume administer (ml): 0 Total IV fluid infused: 0 Progress Note Anesthesia document: Postop Eval 1 completed: Yes
--- NOTE | 2024-07-15 11:43 | POSTOPAN2_ITS ---
Anesthesia Postop Eval I Sum Postop Eval Completion status Anesthesia document: Postop Eval 1 completed: Yes Anesthesia Postop Eval I Summary Anesthesia Postop Eval I Summary: Anesthesia Postop Eval I: Assessment Summary Airway patent Yes 07/15/24 09:48 MUD [email or web address] Spontaneous unlabored Yes 07/15/24 09:48 MUD WORKER.NFOR respirations Mental status Awake 07/15/24 09:48 MUD [email or web address] nausea No 07/15/24 09:48 MUD WORKER.NFOR Vomiting No 07/15/24 09:48 MUD [email or web address] Anesthesia Postop Eval I: Fluid Summary Crystalloid volume administer (ml) Colloids volume administered ( ml) Blood Product volume administered (ml) Total IV fluid infused Anesthesia Postop Eval I: Summary Notes Anesthesia Complication No 07/15/24 09:48 MUD [email or web address].NFOR Anesthesia Complication Comment: Post-operative progress note Anesthesia: Postop Eval II Evaluation Mental status: Awake and Calm Pain Level: 0 nausea: No Vomiting: No
--- NOTE | 2024-07-15 11:43 | PCM.POSTANE2 ---
Anesthesia Postop Eval I Sum Postop Eval Completion status Anesthesia document: Postop Eval 1 completed: Yes Anesthesia Postop Eval I Summary Anesthesia Postop Eval I Summary: Anesthesia Postop Eval I: Assessment Summary Airway patent Yes 07/15/24 09:48 COCOA BEAN ROASTER HELPER.[email or web address] Spontaneous unlabored Yes 07/15/24 09:48 COCOA BEAN ROASTER HELPER.NFOR respirations Mental status Awake 07/15/24 09:48 COCOA BEAN ROASTER HELPER.NFOR nausea No 07/15/24 09:48 COCOA BEAN ROASTER HELPER.NFOR Vomiting No 07/15/24 09:48 COCOA BEAN ROASTER HELPER.NFOR Anesthesia Postop Eval I: Fluid Summary Crystalloid volume administer (ml) Colloids volume administered ( ml) Blood Product volume administered (ml) Total IV fluid infused Anesthesia Postop Eval I: Summary Notes Anesthesia Complication No 07/15/24 09:48 COCOA BEAN ROASTER HELPER.NFOR Anesthesia Complication Comment: Post-operative progress note Anesthesia: Postop Eval II Evaluation Mental status: Awake and Calm Pain Level: 0 nausea: No Vomiting: No
[2024-07-15] MEDS: Ketorolac 15 MG/ML Vial IV (12:49)
== END 2024-07-15 13:39 | disposition home or self-care (01) ==
LOC: SDC 06:09 → AC 06:09
PROVIDERS: Anesthesiology; PCP Nurse Practitioner Family; Referring Provider Urology; Visit Provider Urology
PROC: 0T5B8ZZ Destruction of Bladder, Via Natural or Artificial Opening Endoscopic (ICD-10-PCS; CPT 51720; principal; 2024-07-15 08:25)
DX: C67.8 Malignant neoplasm of overlapping sites of bladder (principal); E11.9 Type 2 diabetes mellitus without complications; I10 Essential (primary) hypertension; I25.2 Old myocardial infarction; E78.00 Pure hypercholesterolemia, unspecified; R35.1 Nocturia; N40.1 Benign prostatic hyperplasia with lower urinary tract symptoms; R31.0 Gross hematuria; Z95.1 Presence of aortocoronary bypass graft; Z95.5 Presence of coronary angioplasty implant and graft; Z79.02 Long term (current) use of antithrombotics/antiplatelets; Z79.82 Long term (current) use of aspirin; Z79.84 Long term (current) use of oral hypoglycemic drugs; Z79.899 Other long term (current) drug therapy; Z87.891 Personal history of nicotine dependence
CPT/HCPCS: 52240; 00912; 36415; 80048; 82962; 83036; 85027; 88307; 93005; J9280; J2405

== ENCOUNTER → 2024-09-14 | Outpatient (CLI) | payer MEDICARE, OTHER, SELFPAY | END | disposition home or self-care (01) | LOC: LABSPEC 14:13 | PROVIDERS: PCP Nurse Practitioner Family; Referring Provider Urology; Visit Provider Urology | DX: R30.9 Painful micturition, unspecified (principal) | CPT/HCPCS: 87077; 87086; 87088 ==

== ENCOUNTER 2024-12-09 08:20 | Day surgery (SDC) | payer MEDICARE, OTHER, SELFPAY ==
[2024-12-03 09:40] LABS: Hematocrit 39.9 % (40-54); Hemoglobin 12.6 g/dL (13.0-16.5); Mean Corp Hgb Conc 31.6 g/dL (32-36); Mean Corpuscular Volume 85.4 fL (80-94); Mean Platelet Vol. 10.5 fl (6.2-12.0); Platelet Count 169 K/mm3 (150-450); RBC Distribution Width CV 17.9 % (11.6-14.6); RBC Distribution Width SD 55.5 fl (35.1-43.9); Red Blood Count 4.67 M/mm3 (4.6-6.2); White Blood Count 7.1 K/mm3 (4.4-11.0)
[2024-12-03 10:09] LABS: Anion Gap 10 (5-15); BUN 26 mg/dL (4-19); BUN/Creat Ratio 22.0 RATIO (10-20); Calcium,Total 9.7 mg/dL (7.6-11.0); Carbon Dioxide 21.9 mmol/L (21.0-32.0); Chloride 105 mmol/L (98-108); Glucose 223 mg/dL (70-99); Potassium 4.9 mmol/L (3.3-5.1)
--- NOTE | 2024-12-03 19:43 | PAT.ANESEVAL ---
Pre-Assessment Diagnosis/Proposed Procedure Planned Operative Procedure(s): CYSTO TURBT Anesthesia History Anesthesia History - analysis evaluator: Anesthesia History - analysis evaluator Hx Hospitalization No 12/02/24 13:33 Any Problems With Anesthesia No 12/02/24 13:33 Cholinesterase deficiency No 12/02/24 13:33 You/Your Family Experience No 12/02/24 13:33 fever (hyperthermia) with Relationship Recent Exposure to Contagious No 07/15/24 06:45 Disease Does patient have nerve No 12/02/24 13:33 stimulator Patient instructed to have device shut off --Does patient have Pacemaker or ICD? When Was Last Pacemaker Check QUESTION #4 FULL TEXT: You/Your Family Experience fever (hyperthermia) with Anesthesia Last Oral Intake Last Oral intake: Last Oral Intake NPO since Meds taken in AM with sips of water? Meds patient instructed to take am of surgery PONV PONV - analysis evaluator: PONV - analysis evaluator Female No 12/02/24 13:33 HX of Motion Sickness No 12/02/24 13:33 HX of N/V After Surgery No 12/02/24 13:33 Non-Smoker Yes 12/02/24 13:33 Duration of Surgery greater Yes 12/02/24 13:33 than 60 minutes Number of Risk Factors 2 12/02/24 13:33 PONV Score Moderate Risk 12/02/24 13:33 Height & Weight Height & Weight: Anesthesia: Height & Weight Height 5 ft 10 in 07/15/24 06:45 Respiratory Assessment Respiratory Assessment - analysis evaluator: Respiratory Tract Infection Hx - analysis evaluator Hx Respiratory Tract Infection No 12/02/24 13:33 STOP Sleep Apnea STOP Sleep Apnea - analysis evaluator: STOP Sleep Apnea - analysis evaluator Hx Hypertension Yes: CONTROLLED WITH MEDS 12/02/24 13:33 Hx Sleep Apnea No 12/02/24 13:33 CPAP BIPAP Do you snore loudly (louder Yes 12/02/24 13:33 than talking or can be heard Do you often feel tired/ No 12/02/24 13:33 fatigued/ sleepy during daytime? Has anyone observed you stop No 12/02/24 13:33 breathing during sleep? STOP Results Positive 12/02/24 13:33 QUESTION #5 FULL TEXT : Do you snore loudly (louder than talking or can be heard through closed doors)? Tobacco Use History Tobacco Use History - analysis evaluator: Tobacco Use History - analysis evaluator Tobacco Use Smoking Status Former smoker 12/02/24 13:33 Hx Tobacco Use No 12/02/24 13:33 Years Smoking Packs Smoked per Day Smoking Cessation Date was Yes - quit smoking within 15 12/02/24 13:33 within the last 15 years years Hx Smoking Cessation Date 11/23/14 12/02/24 13:33 Hx Smoking Cessation No 12/02/24 13:33 Counseling Hematologic Medial History Hematologic Hx - analysis evaluator: Hematologic Medical Hx - managing member Hx of Blood Transfusion Yes 12/02/24 13:33 Hx of Transfusion in last 3 No 12/02/24 13:33 Months Date of Last Transfusion (if within last 3 months) Ever experience any problems No 12/02/24 13:33 with transfusion(s)? Specify any problems Hx of Preganancy in last 3 N/A 12/02/24 13:33 Months Nurse Filling Out Transfusion DSCHRIBER 12/02/24 13:33 & Questions: Date: 12/02/24 12/02/24 13:33 Time: 13:35 12/02/24 13:33 Patient unable to answer at this time (ie. confused, unrespo /Reproduction History /Reproductive History - analysis evaluator: /Reproductive Hx- analysis evaluator Hx Now Gestational Age (in weeks): EDC: Hx Hx Para Hx Section SAB No 12/02/24 13:33 [facility] Medical History (Updated 12/02/24 @ 13:41 by Karen Brown) Indwelling urethral catheter present Loss of hearing Wears glasses Wears dentures Cancer Alcohol use Diabetes Arthritis Bladder disease Restless legs Injury of back Back pain History of ulceration Gastric reflux Former smoker History of pain when walking History of stress test History of echocardiogram Cardiology follow-up encounter History of heart attack Hx of retinal detachment Right flank pain Hematuria Osteoarthritis High cholesterol Hypertension Home Medications ?Medication ?Instructions ?Recorded ?Last Taken ?Type lisinopril 20 mg tablet 10 mg PO DAILY bp 06/10/18 10/10/21 History ticagrelor 90 mg tablet (Brilinta) 90 mg PO BID blood thinner 06/10/18 12/02/24 History metoprolol tartrate 50 mg tablet 25 mg PO BID bp 06/11/18 07/15/24 History (Lopressor) atorvastatin 40 mg tablet 80 mg PO QHS cholesterol 09/16/20 10/09/21 History ezetimibe 10 mg tablet 10 mg PO DAILY choleserol 10/05/21 10/10/21 History nitroglycerin 0.4 mg sublingual 0.4 mg sublingual Q5M PRN chestpain 10/05/21 Unknown History tablet HANDICAP PLACARD #1 ea 05/25/22 Unknown Rx pantoprazole 40 mg tablet,delayed 40 mg PO DAILY gerd #90 tabs 10/03/22 07/15/24 Rx release aspirin 81 mg tablet,delayed 81 mg PO DAILY 10/15/22 12/02/24 History release (Adult Low Dose Aspirin) alfuzosin 10 mg tablet,extended 10 mg PO DAILY #30 tabs 07/15/24 Unknown Rx release 24 hr (Uroxatral) bimatoprost 0.01 % eye drops 1 drp ophthalmic (eye) QHS 12/02/24 Unknown History (Lumigan) brinzolamide 1 %-brimonidine 0.2 % 1 drp RIGHT EYE BID 12/02/24 Unknown History eye drops,suspension (Simbrinza) oxybutynin chloride 10 mg 10 mg PO DAILY 12/02/24 Unknown History tablet,extended release 24 hr Allergy/AdvReac Type Severity Reaction Status Date / Time prednisone Allergy Intermediate Flushing Verified 12/02/24 13:20 tamsulosin AdvReac Severe Itching Verified 12/02/24 13:20 Family History Father Cancer Mother Hypertension Surgical History (Updated 12/02/24 @ 13:41 by Karen Brown) History of cardiac catheterization History of carpal tunnel surgery of right wrist Hx of right cataract extraction Hx of left cataract extraction History of transurethral resection of bladder tumor (TURBT) Hx of arthroscopy of shoulder History of shoulder surgery History of right knee surgery History of quadruple bypass History of heart artery stent Social History household members: spouse Smoking Status: Former smoker alcohol intake: never substance use type: does not use what type of physical activity do you participate in: none Audit: Pertinent Findings Pertinent Findings EKG Perinent findings: 07/21/2024. Sinus rhythm with occasional PVCs. Stress test pertinent findings: September 02, 2024. No infarct. Mild (less than 10%) ischemia in the territory of the RCA. Ejection fraction at rest 46%. EF with stress is 56%. 07/05/2021. Negative exercise treadmill test by EKG criteria. Moderate area of infarction in the inferior wall. No significant residual myocardial ischemia. EF is 40%. Echo (EF%) pertinent findings: 07/10/2022. EF of 55%. No significant valvular abnormalities. Heart catheterization pertinent findings: 10/05/2024. 1. Normal EF of 56%. Improved from 07/12/2021. 2. Three-vessel coronary artery disease. LAD mid - moderately occluded. Circumflex?first obtuse marginal branch stent widely patent. RCA dominant, distal total occlusion. 3. ESPINOZA to the LAD widely patent. 4. SVG to the circumflex OM totally occluded. 5 SVG to the PDA is widely patent. Consult pertinent findings: 07/21/2024. Dr. King. 1. History of coronary artery disease, status post stents x 3 in the RCA in 2014. Status post CABG in 2014, status post VERITO stent to the OM of the circumflex in 2018, and VERITO to the inferior ramus branch of the first OM in 2019. Follow-up cath in 2021 showed no significant changes. Previous stent in the inferior ramus was widely patent. Given patient's complaints of chest pain he was started on Imdur. Patient doing well on Imdur. He has been continued on dual antiplatelet therapy with aspirin and Brilinta because of his multiple interventions. 2. Complaints of shortness of breath in 2022 followed with an echocardiogram which showed preserved ventricular systolic function. Recommendation Anesthesia Recommendation Anesthesia recommendation: OPTIMIZED for anesthesia
[2024-12-09] VITALS (8 sets, daily range): BP systolic 113–147; BP diastolic 75–93; PULSE 89–101; RESP 18–20; TEMP 37.3–37.6; O2SAT 93–98; BMI 30.9
[2024-12-09] MEDS: Lactated Ringers 1,000 ML 15 ML IV (09:03)
--- NOTE | 2024-12-09 10:20 | PRE.ANES_ITS ---
ASA Classification* ASA Classification ASA Classification: 3 Assessment & Plan Anesthesia* Anesthesia Assessment Anesthesia Assessment: Discussed sedation and/or anesthesia options, risks, benefits, and alternatives with patient/parents/legal guardian/POA. Questions invited. The patient/parents/legal guardian/POA seems to understand and agrees to proceed with anesthesia plan. Reviewed the physical assessment, medical history, allergy history and patient home medications list prior to surgery/procedure/anesthetic and documented any changes. Performed airway and anesthesia risk assessments. Anesthesia Type Anesthesia Type: General (We discussed general anesthesia with LMA. We discussed possibility of converting to general anesthesia with endotracheal tube. Patient consents to blood products. We discussed the risk of [place], CVA, stroke, seizures and the patient understands.) Anesthesia Focused Assessment* Temperature: 99.2 F Pulse Rate: 89 Blood Pressure: 126/77 Respiratory Rate: 18 Pulse Ox: 98 Oxygen Delivery Method: Room Air Airway Assessment Mouth opens: 1 cm Mallampati Score: I Teeth Condition: Dentures and Full Labs Anesthesia Preop lab: CBC WBC 7.1 K/mm3 (4.4-11.0) 12/03/24 08:54 12/03/24 RBC 4.67 M/mm3 (4.6-6.2) 12/03/24 08:54 12/03/24 Hgb 12.6 g/dL (13.0-16.5) L 12/03/24 08:54 5 Hct 39.9 % (40-54) L 12/03/24 08:54 12/03/24 Plt Count 169 K/mm3 (150-450) 12/03/24 08:54 12/03/24 CHEMISTRY Potassium 4.9 mmol/L (3.3-5.1) 12/03/24 08:54 12/03/24 Sodium 138 mmol/L (133-145) 12/03/24 08:54 12/03/24 Magnesium 2.3 mg/dL (1.6-2.6) 07/05/17 11:06 07/05/17 BUN 26 mg/dL (4-19) H 12/03/24 08:54 12/03/24 Creatinine 1.16 mg/dL (0.70-1.20) 12/03/24 08:54 12/03/24 Glucose 223 mg/dL (70-99) H 12/03/24 08:54 12/03/24 POC Glucose 170 mg/dL (74-106) H 12/09/24 08:46 12/09/24 TSH 0.43 uIU/mL (0.358-3.74) 10/05/21 10:58 COAG PT 13.1 SECONDS (11.7-14.9) 10/11/21 12:49 Pre-Assessment Diagnosis/Proposed Procedure Planned Operative Procedure(s): CYSTO TURBT Anesthesia History Anesthesia History - management trainee marketing: Anesthesia History - management trainee marketing Hx Hospitalization No 12/02/24 13:33 Any Problems With Anesthesia No 12/02/24 13:33 Cholinesterase deficiency No 12/02/24 13:33 You/Your Family Experience No 12/02/24 13:33 fever (hyperthermia) with Relationship Recent Exposure to Contagious No 12/09/24 08:56 Disease Does patient have nerve No 12/02/24 13:33 stimulator Patient instructed to have device shut off --Does patient have Pacemaker No 12/09/24 08:56 or ICD? When Was Last Pacemaker Check QUESTION #4 FULL TEXT: You/Your Family Experience fever (hyperthermia) with Anesthesia Last Oral Intake Last Oral intake: Last Oral Intake NPO since 18:30 12/09/24 08:56 Meds taken in AM with sips of Yes 12/09/24 08:56 water? Meds patient instructed to metoprolol, protonix 12/09/24 08:56 take am of surgery PONV PONV - management trainee marketing: PONV - management trainee marketing Female No 12/02/24 13:33 HX of Motion Sickness No 12/02/24 13:33 HX of N/V After Surgery No 12/02/24 13:33 Non-Smoker Yes 12/02/24 13:33 Duration of Surgery greater Yes 12/02/24 13:33 than 60 minutes Number of Risk Factors 2 12/02/24 13:33 PONV Score Moderate Risk 12/02/24 13:33 Height & Weight Height & Weight: Anesthesia: Height & Weight Height 5 ft 10 in 12/09/24 08:56 Weight: 98 kg 12/09/24 08:56 Body Mass Index (BMI) 30.9 12/09/24 08:56 Respiratory Assessment Respiratory Assessment - management trainee marketing: Respiratory Tract Infection Hx - management trainee marketing Hx Respiratory Tract Infection No 12/02/24 13:33 STOP Sleep Apnea STOP Sleep Apnea - management trainee marketing: STOP Sleep Apnea - management trainee marketing Hx Hypertension Yes: CONTROLLED WITH MEDS 12/02/24 13:33 Hx Sleep Apnea No 12/02/24 13:33 CPAP BIPAP Do you snore loudly (louder Yes 12/02/24 13:33 than talking or can be heard Do you often feel tired/ No 12/02/24 13:33 fatigued/ sleepy during daytime? Has anyone observed you stop No 12/02/24 13:33 breathing during sleep? STOP Results Positive 12/02/24 13:33 QUESTION #5 FULL TEXT : Do you snore loudly (louder than talking or can be heard through closed doors)? Tobacco Use History Tobacco Use History - management trainee marketing: Tobacco Use History - management trainee marketing Tobacco Use Smoking Status Former smoker 12/02/24 13:33 Hx Tobacco Use No 12/02/24 13:33 Years Smoking Packs Smoked per Day Smoking Cessation Date was Yes - quit smoking within 15 12/02/24 13:33 within the last 15 years years Hx Smoking Cessation Date 11/23/14 12/02/24 13:33 Hx Smoking Cessation No 12/02/24 13:33 Counseling Hematologic Medial History Hematologic Hx - management trainee marketing: Hematologic Medical Hx - bond manager Hx of Blood Transfusion Yes 12/02/24 13:33 Hx of Transfusion in last 3 No 12/02/24 13:33 Months Date of Last Transfusion (if within last 3 months) Ever experience any problems No 12/02/24 13:33 with transfusion(s)? Specify any problems Hx of Preganancy in last 3 N/A 12/02/24 13:33 Months Nurse Filling Out Transfusion DSCHRIBER 12/02/24 13:33 & Questions: Date: 12/02/24 12/02/24 13:33 Time: 13:35 12/02/24 13:33 Patient unable to answer at this time (ie. confused, unrespo /Reproduction History /Reproductive History - management trainee marketing: /Reproductive Hx- management trainee marketing Hx Now Gestational Age (in weeks): EDC: Hx Hx Para Hx Section SAB No 12/02/24 13:33 Active Medications Active Medications: Current Medications Generic Name Dose Route Start Last Admin Trade Name Mary Lou PRN Reason Stop Dose Admin Cefazolin Sodium 2 gm/ Sodium 110 mls @ 200 mls/hr 12/09/24 10:40 Chloride IV 12/09/24 11:12 INTRAOP ONE Lactated Ringer's 1,000 mls @ 15 mls/hr 12/09/24 08:30 12/09/24 09:03 IV 15 mls/hr .Q48H RODGER Administration PFSH Medical History (Updated 12/02/24 @ 13:41 by Karen Brown) Indwelling urethral catheter present Loss of hearing Wears glasses Wears dentures Cancer Alcohol use Diabetes Arthritis Bladder disease Restless legs Injury of back Back pain History of ulceration Gastric reflux Former smoker History of pain when walking History of stress test History of echocardiogram Cardiology follow-up encounter History of heart attack Hx of retinal detachment Right flank pain Hematuria Osteoarthritis High cholesterol Hypertension Home Medications ?Medication ?Instructions ?Recorded ?Last Taken ?Type lisinopril 20 mg tablet 10 mg PO DAILY bp 06/10/18 0 12/08/24 History ticagrelor 90 mg tablet (Brilinta) 90 mg PO BID blood thinner 06/10/18 12/01/24 History metoprolol tartrate 50 mg tablet 25 mg PO BID bp 06/1112/09/24 07:15 History (Lopressor) atorvastatin 40 mg tablet 80 mg PO QHS cholesterol 12/08/24 History ezetimibe 10 mg tablet 10 mg PO DAILY choleserol 12/08/24 History nitroglycerin 0.4 mg sublingual 0.4 mg sublingual Q5M PRN chestpain 10/05/21 Unknown History tablet HANDICAP PLACARD #1 ea 05/25/22 Unknown Rx pantoprazole 40 mg tablet,delayed 40 mg PO DAILY gerd #90 tabs 10/03/22 12/09/24 07:15 Rx release aspirin 81 mg tablet,delayed 81 mg PO DAILY 10/15/22 0 12/01/24 History release (Adult Low Dose Aspirin) alfuzosin 10 mg tablet,extended 10 mg PO DAILY #30 tab s 07/15/24 12/08/24 Rx release 24 hr (Uroxatral) bimatoprost 0.01 % eye drops 1 drp ophthalmic (eye) QH S 12/02/24 12/08/24 History (Lumigan) brinzolamide 1 %-brimonidine 0.2 % 1 drp RIGHT EYE BID 12/02/24 12/08/24 History eye drops,suspension (Simbrinza) oxybutynin chloride 10 mg 10 mg PO DAILY 12/02/2411/24 History tablet,extended release 24 hr Allergy/AdvReac Type Severity Reaction Status Date / Time prednisone Allergy Intermediate Flushing Verified 12/09/24 08:55 tamsulosin AdvReac Severe Itching Verified 12/09/24 08:55 Family History Father Cancer Mother Hypertension Surgical History (Updated 12/02/24 @ 13:41 by Karen Brown) History of cardiac catheterization History of carpal tunnel surgery of right wrist Hx of right cataract extraction Hx of left cataract extraction History of transurethral resection of bladder tumor (TURBT) Hx of arthroscopy of shoulder History of shoulder surgery History of right knee surgery History of quadruple bypass History of heart artery stent Social History household members: spouse Smoking Status: Former smoker alcohol intake: never substance use type: does not use what type of physical activity do you participate in: none Review of Systems (Anesthesia) ROS Narrative System reviewed and no additional complaints, except as documented. Physical Exam Const alert and oriented x3 HEENT Teeth and Gingiva: edentulous Resp normal respiratory effort Cardio regular rate
--- NOTE | 2024-12-09 10:45 | BLB_PTH ---
PATIENT: BASHIR OROPEZA LOC: [facility] [place] U#:[id number] AGE/SX: 74/M ROOM: RE12/09/[address]: Dr. Juan Raman MD : 1950 BED: DIS: 12/09/2024 SPEC #: [id number] RECD: 12/09/24 13:44 STATUS: BECKY REJosep #: [id number] BONG: 12/09/24 10:[address]: Juan Raman DEPT: SURGICAL PATHOLOGY RECD BY: Talha Frazier ENTERED: 12/09/24 14:29 SP TYPE: TURB OTHR DR: Danis Oropeza, CUT TOBACCO BULKER-C Tissues: A - Urinary bladder, NOS Procedures: Surgery Specimen Level V HEADER OPERATION: Transurethral resection bladder PRE-OP DIAGNOSIS: Malignant neoplasm of dome of bladder, gross hematuria TISSUE SUBMITTED: A- Bladder tumor MICROSCOPIC DIAGNOSIS A. Urinary bladder, transurethral resection: * Remnant of benign urothelium with an adjacent extensively denuded surface and other areas with extensive cautery artifact * Lamina propria with chronic inflammation and negative for malignancy * Muscularis propria is negative for malignancy MICROSCOPIC DESCRIPTION Slides are reviewed. GROSS DESCRIPTION A. Received in formalin labeled with the patient's name and date of . Designated as bladder tumor are 5 [id number] and cauterized irregular tissue fragments ranging 0.3 x 0.3 x 0.1 cm to 0.6 x 0.4 x 0.1 cm. Entirely submitted in 1 cassette. LA 12/09/2024 CPT:57809
--- NOTE | 2024-12-09 11:03 | HP.PCM_ITS ---
[facility] - General General Date of Service: 12/09/24 Chief Complaint: Recurrence of bladder cancer HPI Narrative BASHIR HIDALGO, is a 74 M who presents for a resection recurrence of cancer in his bladder he has multiple tumors in the dome of the bladder they need to be resected and cauterized right need neither round of BCG after this treatment. [facility] Medical History Indwelling urethral catheter present Loss of hearing Wears glasses Wears dentures Cancer Alcohol use Diabetes Arthritis Bladder disease Restless legs Injury of back Back pain History of ulceration Gastric reflux Former smoker History of pain when walking History of stress test History of echocardiogram Cardiology follow-up encounter History of heart attack Hx of retinal detachment Right flank pain Hematuria Osteoarthritis High cholesterol Hypertension Home Medications ?Medication ?Instructions ?Recorded ?Last Taken ?Type lisinopril 20 mg tablet 10 mg PO DAILY bp 06/10/18 0 12/08/24 History ticagrelor 90 mg tablet (Brilinta) 90 mg PO BID blood thinner 06/10/18 12/01/24 History Held on 12/09/24. Instructions: Resume on 12/16/24. metoprolol tartrate 50 mg tablet 25 mg PO BID bp 06/1112/09/24 07:15 History (Lopressor) atorvastatin 40 mg tablet 80 mg PO QHS cholesterol 12/08/24 History ezetimibe 10 mg tablet 10 mg PO DAILY choleserol 12/08/24 History nitroglycerin 0.4 mg sublingual 0.4 mg sublingual Q5M PRN chestpain 10/05/21 Unknown History tablet HANDICAP PLACARD #1 ea 05/25/22 Unknown Rx pantoprazole 40 mg tablet,delayed 40 mg PO DAILY gerd #90 tabs 10/03/22 12/09/24 07:15 Rx release aspirin 81 mg tablet,delayed 81 mg PO DAILY 10/15/22 0 12/01/24 History release (Adult Low Dose Aspirin) Held on 12/09/24. Instructions: Resume on 12/16/24. alfuzosin 10 mg tablet,extended 10 mg PO DAILY #30 tab s 07/15/24 12/08/24 Rx release 24 hr (Uroxatral) bimatoprost 0.01 % eye drops 1 drp ophthalmic (eye) QH S 12/02/24 12/08/24 History (Lumigan) brinzolamide 1 %-brimonidine 0.2 % 1 drp RIGHT EYE BID 12/02/24 12/08/24 History eye drops,suspension (Simbrinza) oxybutynin chloride 10 mg 10 mg PO DAILY 12/02/2411/24 History tablet,extended release 24 hr ciprofloxacin HCl 500 mg tablet 500 mg PO BID #6 tabs 12/09/24 Unknown Rx (Cipro) finasteride 5 mg tablet (Proscar) 5 mg PO DAILY #30 ta bs 12/09/24 Unknown Rx Allergy/AdvReac Type Severity Reaction Status Date / Time prednisone Allergy Intermediate Flushing Verified 12/09/24 08:55 tamsulosin AdvReac Severe Itching Verified 12/09/24 08:55 Family History Father Cancer Mother Hypertension Surgical History History of cardiac catheterization History of carpal tunnel surgery of right wrist Hx of right cataract extraction Hx of left cataract extraction History of transurethral resection of bladder tumor (TURBT) Hx of arthroscopy of shoulder History of shoulder surgery History of right knee surgery History of quadruple bypass History of heart artery stent Social History household members: spouse Smoking Status: Former smoker alcohol intake: never substance use type: does not use what type of physical activity do you participate in: none ROS Constitutional Constitutional: Denies chills, fever(s) or malaise Eyes Eyes: Denies blurry vision or change in vision ENT HEENT: Reports none Cardiovascular Cardiovascular: Denies chest pain or palpitations Respiratory/Chest Respiratory/Chest: Denies cough or shortness of breath with exertion Gastrointestinal Gastrointestinal: Denies abdominal pain, constipation or diarrhea Musculoskeletal Musculoskeletal: Denies back pain, joint stiffness or joint swelling Integumentary Integumentary: Denies dry skin, jaundice, lesions or rash Neurologic Neurologic: Denies confusion, syncope or weakness Psychiatric Psychiatric: Reports none; Denies anxiety or depression Endocrine Endocrinology: Denies excessive sweating, fatigue or flushing Hematologic/Lymphatic Hematologic/Lymphatic: Denies anemia, easy bleeding or easy bruising Vital Signs Vital Signs Vital Signs: 12/09/24 08:56 12/09/24 08:56 12/09/24 10:21 Temperature 99.2 F H 99.2 F H Temperature Source Temporal Pulse Rate 89 89 Respiratory Rate 18 18 Respiratory Pattern Normal Blood Pressure 126/77 H 126/77 H Blood Pressure Mean 93 Blood Pressure Source Monitor Blood Pressure Position Sitting Blood Pressure Location Left Arm Pulse Ox 98 98 Oxygen Delivery Method Room Air Room Air Weight Weight: 98 kg Body Mass Index (BMI) 30.9 Physical Exam Const alert and oriented x3 General Appearance: cooperative HEENT normocephalic and head/scalp atraumatic Eyes PERRL and EOMs intact bilaterally Neck supple, no JVD and no carotid bruits Resp normal respiratory effort, normal air movement and clear to auscultation bilaterally Cardio regular rate and no murmurs GI normal to inspection, nondistended, normoactive bowel sounds and soft to palpation Extremity normal capillary refill General Extremity: no tenderness to palpation of joints or extremities; Negative for edema Skin no rashes or lesions noted and no wounds General Skin Exam: no breakdown Neuro CN's II-XII intact bilaterally Psych affect normal Appearance: appropriate Results Lab / Micro Data 12/03/24 08:54 12/03/24 08:54 Labs: Laboratory Results - last 24 hr 12/09/24 08:46: POC Glucose 170 H Assessment & Plan Assessment/Plan (1) Bladder mass: PLAN: Plan for transurethral section of bladder tumors
--- NOTE | 2024-12-09 11:04 | PCM.DC ---
Discharge Instructions DC O2, CPAP, BIPAP needs Home O2 Discharge instructions: No Dressing / Incision Discharge Activity: Return to Normal Activity, No Restrictions and May Shower Dressing / Incision Call your doctor if your incision/area has: Sudden Increased Bleeding Call your doctor if you observe: Fever of 101 or Higher and Uncontrolled pain Follow Up Care Please Follow Up With: Juan Raman MD When: call for appt 2 weeks Test Results: Test results from this visit will be discussed in further detail at your follow-up appointment, if applicable. Discharge Plan Admission Primary Reason for Your Visit: Resection of bladder tumors Attending Provider: Juan Raman Primary Care Provider: Danis Oropeza Consulting Providers: Adrian Padilla Instructions Print Language: Armenian Discharge Orders/Prescriptions Prescriptions: New ciprofloxacin HCl [Cipro] 500 mg tablet 500 mg PO BID Qty: 6 0RF finasteride [Proscar] 5 mg tablet 5 mg PO DAILY Qty: 30 5RF Continued lisinopril 20 mg tablet 10 mg PO DAILY metoprolol tartrate [Lopressor] 50 mg tablet 25 mg PO BID atorvastatin 40 mg tablet 80 mg PO QHS ezetimibe 10 mg tablet 10 mg PO DAILY nitroglycerin 0.4 mg tablet, sublingual 0.4 mg sublingual Q5M PRN (Reason: chestpain) Rx Instructions: do not exceed 3 doses per episode (DME) HANDICAP PLACARD See Rx Instructions .Route .MEDSUPPLY Qty: 1 0RF Rx Instructions: LENGTH OF TIME: 5 years Diagnosis: Disability alfuzosin [Uroxatral] 10 mg tablet extended release 24 hr 10 mg PO DAILY Qty: 30 11RF Rx Instructions: administer after the same meal each day oxybutynin chloride 10 mg tablet extended release 24hr 10 mg PO DAILY Lumigan 0.01 % drops 1 drp ophthalmic (eye) QHS Simbrinza 1-0.2 % drops,suspension 1 drp RIGHT EYE BID pantoprazole 40 mg tablet,delayed release (DR/EC) 40 mg PO DAILY Qty: 90 3RF Held Brilinta 90 mg tablet 90 mg PO BID Hold Instructions: Resume on 12/16/24. aspirin [Adult Low Dose Aspirin] 81 mg tablet,delayed release (DR/EC) 81 mg PO DAILY Hold Instructions: Resume on 12/16/24. Referrals / Follow Up: Danis Oropeza, COMMUNICATIONS EQUIPMENT OPERATOR-C [Primary Care Provider] - Disposition Disposition (needs filled in before D/C Order can be placed): Home, Self Care
--- NOTE | 2024-12-09 11:41 | PCM.OPRPT ---
Operative Report (Standard) Operative Information Date of Procedure: 12/09/24 Pre-Operative Diagnosis: Multiple bladder tumors Post-Operative Diagnosis: Transurethral resection of multiple tumors in the posterior wall lateral wall and dome of the bladder total size about 3 cm Surgery/Procedure Performed: Transurethral section of multiple tumors in the bladder seed potato arranger: No Type of Anesthesia: General RN Documented Start/Stop Times: Operation Date: 12/09/24 10:45 Case Time Into Pre-Op 12/09/24 08:28 Out of Pre-Op 12/09/24 11:06 Anesthesia Start 12/09/24 11:09 Into Room 12/09/24 11:09 Procedure Start 12/09/24 11:20 Procedure End 12/09/24 11:39 Procedure Start Time: 11:20 Procedure Stop Time: 11:42 Select all DRAINS/GRAFTS/IMPLANTS that apply: None Estimated Blood Loss: Minimal Specimen collected: Yes Description of specimen(s) removed: Bladder tumors Description of surgery: This is a 74-year-old male has recurrent bladder cancer on cystoscopy again was found to have papillary tumors within the bladder very suspicious for cancer so when taken back to resect and cauterize everything the looks suspicious for carcinoma appears to have low-grade recurrent bladder cancer multifocal. He did have BCG and therapy in the past he might need BCG therapy again. Patient was taken back to the operating room after induction of anesthesia he was placed in dorsolithotomy position within the bladder with a 21 [place] cystourethroscope with dilated the meatus from 16 [place]er to 30 [place] I then went in with a bipolar 24 [place] noncontinuous flow Olympus bipolar resectoscope and I used a cold loop to then shaved off the tumors from the posterior wall lateral wall and dome of the bladder multiple tumors throughout the bladder I then used the loop to cauterize all the areas extensively. To be noninvasive medium to high-grade noninvasive bladder cancer we did get a specimen after cauterizing all the sites extensively I then drained the bladder we elect out the bladder to get the tumor chips out these were handed off and Telfa as a specimen. And then the patient's bladder was drained anesthetic was reversed taken back to the PACU in good condition we will see what the tissue report shows toys possible treatment report might be negative but these definitely look like tumors I think more BCG therapy will be necessary. Surgical Findings: Multiple tumors in the bladder they were resected and cauterized completely Complications Complications: No Admit VTE Documentation VTE Present on Admission: No VTE Mechan Device Prophylaxis: SCD's VTE Pharm Prophylaxis ordered?: No
--- NOTE | 2024-12-09 11:51 | PCM.POST.ANE ---
Anesthesia: Postop Eval I Current Vital Signs Temperature: 99.7 F Pulse Rate: 101 Blood Pressure: 135/93 Respiratory Rate: 20 Pulse Ox: 95 Oxygen Delivery Method: Room Air Assessment Airway patent: Yes Spontaneous unlabored respirations: Yes Mental status: Awake and Calm nausea: No Vomiting: No Anesthesia Complication: No Fluid Hydration Crystalloid volume administer (ml): 700 Total IV fluid infused: 700 Progress Note Anesthesia document: Postop Eval 1 completed: Yes
--- NOTE | 2024-12-09 16:09 | POSTOPAN2_ITS ---
Anesthesia Postop Eval I Sum Postop Eval Completion status Anesthesia document: Postop Eval 1 completed: Yes Anesthesia Postop Eval I Summary Anesthesia Postop Eval I Summary: Anesthesia Postop Eval I: Assessment Summary Airway patent Yes 12/09/24 11:52 [email or web address] Spontaneous unlabored Yes 12/09/24 11:52 [email or web address] respirations Mental status Awake,Calm 12/09/24 11:52 [email or web address] nausea No 12/09/24 11:52 [email or web address] Vomiting No 12/09/24 11:52 [email or web address] Anesthesia Postop Eval I: Fluid Summary Crystalloid volume administer 700 12/09/24 11:52 [email or web address] (ml) Colloids volume administered ( ml) Blood Product volume administered (ml) Total IV fluid infused 700 12/09/24 11:52 [email or web address] Anesthesia Postop Eval I: Summary Notes Anesthesia Complication No 12/09/24 11:52 [email or web address] Anesthesia Complication Comment: Post-operative progress note Anesthesia: Postop Eval II Evaluation Mental status: Awake and Calm Pain Level: 1 nausea: No Vomiting: No Complications Anesthesia Complication: No
--- NOTE | 2024-12-09 16:09 | PCM.POSTANE2 ---
Anesthesia Postop Eval I Sum Postop Eval Completion status Anesthesia document: Postop Eval 1 completed: Yes Anesthesia Postop Eval I Summary Anesthesia Postop Eval I Summary: Anesthesia Postop Eval I: Assessment Summary Airway patent Yes 12/09/24 11:52 TOP DYEING [email or web address] Spontaneous unlabored Yes 12/09/24 11:52 TOP DYEING [email or web address] respirations Mental status Awake,Calm 12/09/24 11:52 TOP DYEING [email or web address] nausea No 12/09/24 11:52 TOP DYEING [email or web address] Vomiting No 12/09/24 11:52 TOP DYEING [email or web address] Anesthesia Postop Eval I: Fluid Summary Crystalloid volume administer 700 12/09/24 11:52 TOP DYEING [email or web address] (ml) Colloids volume administered ( ml) Blood Product volume administered (ml) Total IV fluid infused 700 12/09/24 11:52 TOP DYEING [email or web address] Anesthesia Postop Eval I: Summary Notes Anesthesia Complication No 12/09/24 11:52 TOP DYEING [email or web address] Anesthesia Complication Comment: Post-operative progress note Anesthesia: Postop Eval II Evaluation Mental status: Awake and Calm Pain Level: 1 nausea: No Vomiting: No Complications Anesthesia Complication: No
== END 2024-12-09 13:34 | disposition home or self-care (01) ==
LOC: SDC 08:20 → AC 08:21
PROVIDERS: Anesthesiology; PCP Nurse Practitioner Family; Referring Provider Urology; Visit Provider Urology
PROC: 0TBB8ZZ Excision of Bladder, Via Natural or Artificial Opening Endoscopic (ICD-10-PCS; CPT 52235; principal; 2024-12-09 10:30)
DX: D30.3 Benign neoplasm of bladder (principal); I10 Essential (primary) hypertension; I25.2 Old myocardial infarction; E78.00 Pure hypercholesterolemia, unspecified; Z95.5 Presence of coronary angioplasty implant and graft; Z79.02 Long term (current) use of antithrombotics/antiplatelets; Z79.82 Long term (current) use of aspirin; Z79.899 Other long term (current) drug therapy; Z87.891 Personal history of nicotine dependence
CPT/HCPCS: 52235; 00912; 36415; 80048; 82962; 83036; 85027; 88307; J2405

== ENCOUNTER → 2025-02-23 | Outpatient (CLI) | payer MEDICARE, OTHER, SELFPAY ==
--- OUTSIDE RECORDS SUMMARY | 2024-10-05 06:16 | XMS RPT_ITS ---
Author Name Auto Generated Organization OH[facility] Care Team Providers Care Assembly Loader Name Role Phone ALLEN DOTY Referring Unavailable OROPEZA, ANTHONY Primary Care Unavailable ALLEN DOTY Attending Unavailable OROPEZA, ANTHONY Primary Care Unavailable ALLEN DOTY Referring Unavailable OROPEZA, ANTHONY Primary Care Unavailable ALLEN DOTY Referring Unavailable OROPEZA, ANTHONY Primary Care Unavailable LALO RIVERA Attending Unavailable GWEN, ANTHONY Primary Care Unavailable LALO RIVERA Referring Unavailable OROPEZA, ANTHONY Primary Care Unavailable MELECIO RAMACHANDRAN Admitting Unav ailable MELECIO RAMACHANDRAN Attending Unav ailable OROPEZA, ANTHONY Primary Care Unavailable PROBLEMS DATE TYPE CONDITION / CODE ATTENDING STATUS [facility] 10/05/2024 Active SOB (shortness o f breath) / R06.02(ICD-10) MELECIO RAMACHANDRAN [facility] 09/25/2024 Active Abnormal stress test / R94.39(ICD-10) [facility] 09/25/2024 Active Follow Up / UNK(Unknown) LALO RIVERA [facility] 02/14/2022 Active Coronary artery disease involving gulkana heart without angina pectoris, unspecified vessel or lesion type / I25.10(ICD-10) [facility] 09/02/2024 Active Abnormal electro cardiogram / R94.31(ICD-10) [facility] 09/02/2024 Active RICHARDS (dyspnea on exertion) / R06.09(ICD-10) [facility] 06/15/2022 Active Thrombocytopenia (HCC) / D69.6(ICD-10) ALLEN DOTY [facility] 02/14/2022 Active Coronary artery disease, unspecified vessel or lesion type, unspecified whether angina present, unspecified whether gulkana or transplanted heart / I25.10(ICD-10) ALLEN DOTY [facility] 07/14/2024 Active Medication monit oring encounter / Z51.81(ICD-10) [facility] 07/14/2024 Active Dyslipidemia / E78.5(ICD-10) [facility] 07/14/2024 Active Type 2 diabetes mellitus with other circulatory complication, without long-term current use of insulin (HCC) / E11.59(ICD-10) [facility] 07/14/2024 Active Essential hypert ension / I10(ICD-10) [facility] 07/14/2024 Active Chronic systolic congestive heart failure (HCC) / I50.22(ICD-10) [facility] PROCEDURES No Procedure Records Found RESULTS CNPN Observed: 01/22/2025 12:00 AM Status: COMPLETED Source: [facility] Telephone (CARMOB) BASHIR OROPEZA ([id number]) 1950 M Date Time Provider Department 01/22/25 ALLEN DOTY CARMOB During your visit today, we recorded the following information about you: Flavio Bryant MA 01/22/2025 9:26 AM Signed Patient needs refill of Brilinta sent to [facility]. Will Dr. Cummings print in Dr. Doty's absence. KENDAL Domínguez Shannon M, MA 01/29/2025 4:01 PM Signed Faxed, confirmation obtained. KENDAL Domínguez MA Allergies As of Date: 01/22/2025 Noted Allergy Reaction PREDNISONE 02/08/2022 9 - Itching Comments: Flushed red TAMSULOSIN 06/19/2022 9 - Itching Date Reviewed: 10/05/2024 Reviewed by: French West, RN - Fully Assessed Prescriptions as of 01/29/2025 - ticagrelor (BRILINTA) 90 mg tablet Take 1 tablet by mouth two times a day. - ticagrelor (BRILINTA) 90 mg tablet Take 1 tablet by mouth two times a day. - dapagliflozin propanediol (FARXIGA) 10 mg tablet Take 1 tablet by mouth daily with breakfast. - alfuzosin SR (UROXATRAL) 10 mg 24 hr tablet Take 10 mg by mouth once daily. - ciprofloxacin HCl (CIPRO) 500 mg tablet Take 500 mg by mouth two times a day. completed - oxybutynin ER (DITROPAN XL) 10 mg 24 hr tablet Take 10 mg by mouth once daily. - lisinopril (ZESTRIL) 20 mg tablet Take 0.5 tablets by mouth once daily. - atorvastatin (LIPITOR) 80 mg tablet Take 1 tablet by mouth once daily. - ezetimibe (ZETIA) 10 mg tablet Take 1 tablet by mouth once daily. - metoprolol succinate ER (TOPROL XL) 25 mg 24 hr tablet Take 1 tablet by mouth two times a day. - pantoprazole DR (PROTONIX) 40 mg tablet Take 1 tablet by mouth once daily. - nitroglycerin sublingual (NITROQUICK) 0.4 mg SL tablet Dissolve 1 tablet under the tongue every 5 minutes as needed for chest pain. - acetaminophen 325 mg cap Take by mouth as needed. - aspirin 81 mg cap Take 81 mg by mouth once daily. Stopped 02/07/22 on own, never heard from Dr. Doty Problem List As Of Date 01/22/2025 Noted Resolved Obesity, Class I, BMI 30-34.9 [E66.811] 02/13/2022 HTN (hypertension) [I10] 02/14/2022 WI (myocardial infarction) (HCC) [I21.9] 02/14/2022 CAD (coronary artery disease) [I25.10] 02/14/2022 Gastroesophageal reflux disease [K21.9] 02/14/2022 Carpal tunnel syndrome [G56.00] 10/05/2021 Cataract of both eyes [H26.9] 06/15/2022 Chronic systolic heart failure (HCC) [I50.22] 06/04/2019 Closed fracture of phalanx of toe [S92.919A] 06/15/2022 Coronary atherosclerosis of autologous bypass g*06/15/2022 Eczema of lower leg [L30.9] 06/15/2022 Folliculitis [L73.9] 06/15/2022 Hematuria [R31.9] 10/13/2021 History of myocardial infarction [I25.2] 04/29/2017 Hypercholesterolemia [E78.00] 04/29/2017 Mass of urinary bladder [N32.89] 10/13/2021 Osteoarthritis [M19.90] 06/15/2022 Right flank pain [R10.9] 10/05/2021 Seborrheic keratosis [L82.1] 06/15/2022 Status post coronary artery bypass graft [Z95.1]05/23/2018 Thrombocytopenia (HCC) [D69.6] 06/04/2019 Tingling sensation [R20.2] 06/04/2019 Encounter Status:Closed by FLAVIO BRYANT on 01/29/25 TOSHIA Observed: 01/20/2025 12:00 AM Status: COMPLETED Source: [facility] Telephone (CARMOB) BASHIR OROPEZA ([id number]) 1950 M Date Time Provider Department 01/20/25 ALLEN DOTY During your visit today, we recorded the following information about you: Flavio Bryant MA 01/20/2025 3:59 PM Signed Patient called stating his Brilinta was on hold from [facility]. I called [facility] they stated it is on hold due to the new Tariff's and not knowing the barrera as of this time. We will be needing to send in a new Rx soon, but they stated the patient needed to give them a call. The patient also wanted to cancel his February appointment with Miguel. He is looking into getting in with cardiology in [place]. I did cancel that appointment with Lorna Rivera. Flavio Bryant MA Allergies As of Date: 01/20/2025 Noted Allergy Reaction PREDNISONE 02/08/2022 9 - Itching Comments: Flushed red TAMSULOSIN 06/19/2022 9 - Itching Date Reviewed: 10/05/2024 Reviewed by: French West, RN - Fully Assessed Prescriptions as of 01/20/2025 - dapagliflozin propanediol (FARXIGA) 10 mg tablet Take 1 tablet by mouth daily with breakfast. - alfuzosin SR (UROXATRAL) 10 mg 24 hr tablet Take 10 mg by mouth once daily. - ciprofloxacin HCl (CIPRO) 500 mg tablet Take 500 mg by mouth two times a day. completed - oxybutynin ER (DITROPAN XL) 10 mg 24 hr tablet Take 10 mg by mouth once daily. - lisinopril (ZESTRIL) 20 mg tablet Take 0.5 tablets by mouth once daily. - atorvastatin (LIPITOR) 80 mg tablet Take 1 tablet by mouth once daily. - ezetimibe (ZETIA) 10 mg tablet Take 1 tablet by mouth once daily. - metoprolol succinate ER (TOPROL XL) 25 mg 24 hr tablet Take 1 tablet by mouth two times a day. - pantoprazole DR (PROTONIX) 40 mg tablet Take 1 tablet by mouth once daily. - ticagrelor (BRILINTA) 90 mg tablet Take 1 tablet by mouth two times a day. - nitroglycerin sublingual (NITROQUICK) 0.4 mg SL tablet Dissolve 1 tablet under the tongue every 5 minutes as needed for chest pain. - acetaminophen 325 mg cap Take by mouth as needed. - aspirin 81 mg cap Take 81 mg by mouth once daily. Stopped 02/07/22 on own, never heard from Dr. Doty Problem List As Of Date 01/20/2025 Noted Resolved Obesity, Class I, BMI 30-34.9 [E66.811] 02/13/2022 HTN (hypertension) [I10] 02/14/2022 WI (myocardial infarction) (HCC) [I21.9] 02/14/2022 CAD (coronary artery disease) [I25.10] 02/14/2022 Gastroesophageal reflux disease [K21.9] 02/14/2022 Carpal tunnel syndrome [G56.00] 10/05/2021 Cataract of both eyes [H26.9] 06/15/2022 Chronic systolic heart failure (HCC) [I50.22] 06/04/2019 Closed fracture of phalanx of toe [S92.919A] 06/15/2022 Coronary atherosclerosis of autologous bypass g*06/15/2022 Eczema of lower leg [L30.9] 06/15/2022 Folliculitis [L73.9] 06/15/2022 Hematuria [R31.9] 10/13/2021 History of myocardial infarction [I25.2] 04/29/2017 Hypercholesterolemia [E78.00] 04/29/2017 Mass of urinary bladder [N32.89] 10/13/2021 Osteoarthritis [M19.90] 06/15/2022 Right flank pain [R10.9] 10/05/2021 Seborrheic keratosis [L82.1] 06/15/2022 Status post coronary artery bypass graft [Z95.1]05/23/2018 Thrombocytopenia (HCC) [D69.6] 06/04/2019 Tingling sensation [R20.2] 06/04/2019 Encounter Status:Closed by FLAVIO BRYANT on 01/20/25 PROGRESS Observed: 10/11/2024 2:50 AM Status: COMPLETED Source: [facility] HNO ID: [id number] Author: NOTE, INTERFACE, ? Service: ? Author Type: ? Type: Progress Notes Filed: 10/11/2024 02:55 Note Text: Epic Scheduled Downtime: 10/11/2024 1:00:00 AM to 10/11/2024 2:37:00 AM CNPN Observed: 10/08/2024 12:00 AM Status: COMPLETED Source: [facility] Telephone (CARMOB) BASHIR OROPEZA ([id number]) 1950 Ranjit Date Time Provider Department 10/08/24 ALLEN DOTY During your visit today, we recorded the following information about you: Elham Buckley, RN 10/08/2024 1:07 PM Signed Akanksha from [facility] called regarding cath results and clearance for upcoming procedure. [phone]. Allen Doty MD 10/08/2024 3:06 PM Signed Yes, the pt can be cleared for the procedure. Please let them know. Once you speak to the office, please send this Encounter back to me to remind me to complete the Clearance form. Lilian Duarte RN 10/08/2024 3:15 PM Addendum I spoke to Akanksha. She would like for us to fax over this phone note and his cardiac catheterization report. Please fax to [phone] attention Akanksha. After done, sent back to Dr. Doty. Karen Luna 10/08/2024 3:57 PM Signed Pulled and faxed records to [facility]. 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 - ciprofloxacin HCl (CIPRO) 500 mg tablet Take 500 mg by mouth two times a day. completed - oxybutynin ER (DITROPAN XL) 10 mg 24 hr tablet Take 10 mg by mouth once daily. - lisinopril (ZESTRIL) 20 mg tablet Take 0.5 tablets by mouth once daily. - atorvastatin (LIPITOR) 80 mg tablet Take 1 tablet by mouth once daily. - ezetimibe (ZETIA) 10 mg tablet Take 1 tablet by mouth once daily. - metoprolol succinate ER (TOPROL XL) 25 mg 24 hr tablet Take 1 tablet by mouth two times a day. - pantoprazole DR (PROTONIX) 40 mg tablet Take 1 tablet by mouth once daily. - dapagliflozin propanediol (FARXIGA) 10 mg tablet Take 1 tablet by mouth daily with breakfast. - ticagrelor (BRILINTA) 90 mg tablet Take 1 tablet by mouth two times a day. - nitroglycerin sublingual (NITROQUICK) 0.4 mg SL tablet Dissolve 1 tablet under the tongue every 5 minutes as needed for chest pain. - acetaminophen 325 mg cap Take by mouth as needed. - aspirin 81 mg cap Take 81 mg by mouth once daily. Stopped 02/07/22 on own, never heard from Dr. Doty Problem List As Of Date 10/08/2024 Noted Resolved Obesity, Class I, BMI 30-34.9 [E66.811] 02/13/2022 HTN (hypertension) [I10] 02/14/2022 WI (myocardial infarction) (HCC) [I21.9] 02/14/2022 CAD (coronary artery disease) [I25.10] 02/14/2022 Gastroesophageal reflux disease [K21.9] 02/14/2022 Carpal tunnel syndrome [G56.00] 10/05/2021 Cataract of both eyes [H26.9] 06/15/2022 Chronic systolic heart failure (HCC) [I50.22] 06/04/2019 Closed fracture of phalanx of toe [S92.919A] 06/15/2022 Coronary atherosclerosis of autologous bypass g*06/15/2022 Eczema of lower leg [L30.9] 06/15/2022 Folliculitis [L73.9] 06/15/2022 Hematuria [R31.9] 10/13/2021 History of myocardial infarction [I25.2] 04/29/2017 Hypercholesterolemia [E78.00] 04/29/2017 Mass of urinary bladder [N32.89] 10/13/2021 Osteoarthritis [M19.90] 06/15/2022 Right flank pain [R10.9] 10/05/2021 Seborrheic keratosis [L82.1] 06/15/2022 Status post coronary artery bypass graft [Z95.1]05/23/2018 Thrombocytopenia (HCC) [D69.6] 06/04/2019 Tingling sensation [R20.2] 06/04/2019 Encounter Status:Closed by KAREN LUNA on 10/08/24 TOSHIA Observed: 10/06/2024 12:00 AM Status: COMPLETED Source: [facility] Telephone (CARMOB) OROPEZASHELTON LINDSAYAlcides Portillo ([id number]) 1950 M Date Time Provider Department 10/06/24 ALLEN DOTY During your visit today, we recorded the following information about you: Lilian Gómez RN 10/06/2024 7:24 AM Signed The patient had a heart cath by Dr. Katz yesterday. His left a message on my machine that the heart cath was good and Dr. Katz told him he needed adjustment in his medications. The would like to make an appointment for her . Allen Doty MD 10/06/2024 10:43 PM Signed Yes, Dr. Katz called me to indicate that the pt's coronary anatomy was stable, and that he believed that a lot of his recent symptoms were non-cardiac in nature. We have worked very diligently to tailor this patient's cardiac medications. Following a Cath that showed stable coronary anatomy, I very honestly to not believe that we would be likely to be inclined to make any major changes in in cardiac medications. His status has been significantly affected by his recent diagnosis of bladder cancer. We have been aware of the fact that as of late, he has been running borderline low BP's, and, we did opt to decrease his Lisinopril, and wean him off of Isosorbide Mononitrate, after we saw him on 07/21/24. I would suggest that he submit a BP diary in 3-4 weeks. Obviously, we do not have any place to put him on the schedule at this time, unless he is having an urgent concern (which is far from the case when he just had a Cath with relatively benign results). Lilian Duarte RN 10/07/2024 8:36 AM Signed Pt advised. 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 - ciprofloxacin HCl (CIPRO) 500 mg tablet Take 500 mg by mouth two times a day. completed - oxybutynin ER (DITROPAN XL) 10 mg 24 hr tablet Take 10 mg by mouth once daily. - lisinopril (ZESTRIL) 20 mg tablet Take 0.5 tablets by mouth once daily. - atorvastatin (LIPITOR) 80 mg tablet Take 1 tablet by mouth once daily. - ezetimibe (ZETIA) 10 mg tablet Take 1 tablet by mouth once daily. - metoprolol succinate ER (TOPROL XL) 25 mg 24 hr tablet Take 1 tablet by mouth two times a day. - pantoprazole DR (PROTONIX) 40 mg tablet Take 1 tablet by mouth once daily. - dapagliflozin propanediol (FARXIGA) 10 mg tablet Take 1 tablet by mouth daily with breakfast. - ticagrelor (BRILINTA) 90 mg tablet Take 1 tablet by mouth two times a day. - nitroglycerin sublingual (NITROQUICK) 0.4 mg SL tablet Dissolve 1 tablet under the tongue every 5 minutes as needed for chest pain. - acetaminophen 325 mg cap Take by mouth as needed. - aspirin 81 mg cap Take 81 mg by mouth once daily. Stopped 02/07/22 on own, never heard from Dr. Doty Problem List As Of Date 10/06/2024 Noted Resolved Obesity, Class I, BMI 30-34.9 [E66.811] 02/13/2022 HTN (hypertension) [I10] 02/14/2022 WI (myocardial infarction) (HCC) [I21.9] 02/14/2022 CAD (coronary artery disease) [I25.10] 02/14/2022 Gastroesophageal reflux disease [K21.9] 02/14/2022 Carpal tunnel syndrome [G56.00] 10/05/2021 Cataract of both eyes [H26.9] 06/15/2022 Chronic systolic heart failure (HCC) [I50.22] 06/04/2019 Closed fracture of phalanx of toe [S92.919A] 06/15/2022 Coronary atherosclerosis of autologous bypass g*06/15/2022 Eczema of lower leg [L30.9] 06/15/2022 Folliculitis [L73.9] 06/15/2022 Hematuria [R31.9] 10/13/2021 History of myocardial infarction [I25.2] 04/29/2017 Hypercholesterolemia [E78.00] 04/29/2017 Mass of urinary bladder [N32.89] 10/13/2021 Osteoarthritis [M19.90] 06/15/2022 Right flank pain [R10.9] 10/05/2021 Seborrheic keratosis [L82.1] 06/15/2022 Status post coronary artery bypass graft [Z95.1]05/23/2018 Thrombocytopenia (HCC) [D69.6] 06/04/2019 Tingling sensation [R20.2] 06/04/2019 Encounter Status:Closed by LILIAN GÓMEZ on 10/07/24 NURSING PROG Observed: 10/05/2024 1:34 PM Status: COMPLETED Source: [facility] HNO ID: [id number] Author: MYRNA PETERSON RN Service: Nursing Author Type: Registered Nurse Type: Nursing Progress Note Filed: 10/05/2024 13:35 Note Text: No bleeding noted at this time will dc to home at 1340 per order NURSING PROG Observed: 10/05/2024 1:18 PM Status: COMPLETED Source: [facility] HNO ID: [id number] Author: MYRNA PETERSON RN Service: Nursing Author Type: Registered Nurse Type: Nursing Progress Note Filed: 10/05/2024 13:19 Note Text: Ambulated with assist in hallway then back to room, no active bleeding noted, will dc to home at 1340 per order NURSING PROG Observed: 10/05/2024 10:47 AM Status: COMPLETED Source: [facility] HNO ID: [id number] Author: FRENCH WEST, RN Service: ? Author Type: Registered Nurse Type: Nursing Progress Note Filed: 10/05/2024 10:48 Note Text: Notified cath lab nurse about swelling on L radial site, will have Leopoldo RN down to visualize swelling. BRIEF OP NOT Observed: 10/05/2024 10:22 AM Status: COMPLETED Source: [facility] HNO ID: [id number] Author: MELECIO RAMACHANDRAN MD Service: Interventional Cardiology Author Type: Physician Type: Brief Op Note Filed: 10/07/2024 18:57 Note Text: OPERATIVE NOTE Procedure DATE: 10/05/24 Proceduralist(s) and Farm Demonstrator(s): Melecio Katz MD Procedures: 1. Left heart cath coronary angiography. 2. Right heart cath. 3. Bypass graft angiography. Brief History : 74 years old white male who is referred for coronary and graft angiography possible revascularization with abnormal nuclear stress test. Mild perfusion defect in the inferior wall and basal inferolateral pa. Patient has echo evidence of normal ejection fraction 55% 2022. Most recent nuclear ejection fraction 56%. He has a long history of coronary artery disease history of coronary artery bypass surgery where he had saphenous venous graft to PDA, saphenous venous graft to circumflex OM which was occluded and a follow-up cath and sequential ESPINOZA to LAD diagonal. Patient with a history of drug-eluting stents of the right coronary artery and the circumflex OM. He has been treated for hypertension, type 2 diabetes mellitus, mixed hyperlipidemia, bladder cancer, arthritis, his main symptomatology is dyspnea on exertion, patient with morbid obesity. Patient to quit heavy smoking 2014. He has family history of coronary artery disease. He is has 2 daughters and 1 son his was in the waiting area during the procedure his coronary artery bypass surgery was performed in September 2014 and drug-eluting stent of ramus intermedius 2019 risk and benefit of procedure discussed with the patient and he was consented. Procedure Details: The patient was brought to cardiac Director Agricultural Services draped positioned initially for left radial artery access under complete aseptic and sterile condition 2% Xylocaine without epinephrine was used local anesthesia were unable to thread the wire despite having ultrasound and good visualization of the radial artery apparently there must be some tortuosity. Patient has low threshold for pain required local anesthesia and conscious sedation and we decided to default to the femoral artery access under complete aseptic and sterile condition 2% Xylocaine without epinephrine was used local anesthesia. Using modified Seldinger technique 5 [place]ander venous sheath was placed right femoral vein and 6 [place] arterial sheath was placed right femoral artery. Right heart cath was performed utilizing 5 [place]alander balloontipped catheter. Left heart cath was performed utilizing 5 Frenchmultipurpose and 6 [place]alander JL 4 and the ESPINOZA catheters. At the conclusion of the procedure venous sheath was removed hemostasis secured by manual pressure arterial sheath was removed hemostasis secured by Star[employer] patient was transferred back to same-day unit in stable condition results were discussed with the patient and his . Anesthesia: Conscious Sedation and Local Findings: 1. Hemodynamic results: There was no gradient across the aortic valve LVEDP 10 mmHg. Right heart catheter pressures RA 3, RV 28/2, PA 27/8 mean 16 wedge pressure was 10. The [place] cardiac output was 6.2 L/min. 2. Angiographic results: A. Stebbins coronary angiography: 1. Left main: Large-caliber vessel with minor plaque disease normally bifurcates into LAD and none dominant circumflex. 2. Left anterior descending coronary artery: Large-caliber vessel reaches wraps around the apex type III LAD, proximal vessel with 20 to 40% plaque disease mid vessel long 60 up to 80% stenosis ESPINOZA was widely patent with competitive flow from the LAD to the ESPINOZA. Distal LAD beyond this ESPINOZA anastomosis with moderate disease. 3. Circumflex coronary artery: Large-caliber vessel gives origin to few obtuse marginal branches the first obtuse marginal branch stent widely patent. Could be considered codominant with an origin of very small PDA. 20 to 30% plaque disease were noted beyond these origin of the first obtuse marginal branch. 4. Right coronary artery: Dominant vessel with diffuse 60 to 70% in-stent restenosis distal vessel totally occluded. B. Bypass graft angiography: 1. Left internal mammary sequential to LAD diagonal: Wide patent small caliber not well-developed probably due to the competitive flow from the gulkana competitive flow. 2. Reverse saphenous venous graft to PDA: Wide patent with excellent antegrade flow. 3. Reverse saphenous venous graft to circumflex OM: Totally occluded. Estimated Blood Loss: minimal Complications: None Preop Diagnosis: Patient with multiple medical problems complains of significant exertional dyspnea has abnormal nuclear stress test long history of coronary artery disease and stents and bypass surgery as above. Postop Diagnosis: 1. Noninvasive nuclear evidence of normal ejection fraction 56%. 2. Three-vessel coronary artery disease: A. LM: Minor plaque disease. B. LAD: Mid vessel moderately occlusive disease. C. CX: The first obtuse marginal branch stent wide patent. D. RCA: Dominant, distal total occlusion. 3. ESPINOZA to LAD diagonal sequential: Wide patent. 4. SVG to circumflex OM: Totally occluded. 5. SVG to PDA: Wide patent 6. Within normal right heart pressures. Discussions and recommendations Continue excellent risk factors modification patient with three-vessel coronary artery disease patent SVG to PDA and ESPINOZA to LAD diagonal. lost the graft to circumflex OM but the stent of the OM1 wide patent. Right heart cath within normal pressures. Unclear the etiology of the patient symptomatology. SIGNATURE: Melecio Katz MD PATIENT NAME:Bashir Oropeza DATE: 10/05/24 TIME: 10:22 AM CARD CATH DIAGNOSTIC Observed: 7:34 AM Status: C Source: [facility] Site Id: [facility] #: Study Date: 10/05/2024 Start Time: 7:34:15 AM End Time: Name Duty Melecio Katz MD PROC MD 1 Rod Thompson Interventional Shank Inspector PROC SCRUB 1 Roberto Brar RN PROC CIRC 1 Elham Perez RN PROC RECORD 1 + + PATIENT INFORMATION + + Name: BASHIR OROPEZA : 1950 Age: 74 years Gender: M + + CLINICAL HISTORY/INDICATIONS + + Abnormal ECG and Dyspnea. Procedural Status: Elective CAD Presentation: Symptoms Likely to be Ischemic Angina Classification (within 2 weeks): No Angina No Heart Failure Clinical History: 74 years old white male who is referred for coronary and graft angiography possible revascularization with abnormal nuclear stress test. Mild perfusion defect in the inferior wall and basal inferolateral pa. Patient has echo evidence of normal ejection fraction 55% 2022. Most recent nuclear ejection fraction 56%. He has a long history of coronary artery disease history of coronary artery bypass surgery where he had saphenous venous graft to PDA, saphenous venous graft to circumflex OM which was occluded and a follow-up cath and sequential ESPINOZA to LAD diagonal. Patient with a history of drug-eluting stents of the right coronary artery and the circumflex OM. He has been treated for hypertension, type 2 diabetes mellitus, mixed hyperlipidemia, bladder cancer, arthritis, his main symptomatology is dyspnea on exertion, patient with morbid obesity. Patient to quit heavy smoking 2014. He has family history of coronary artery disease. He is has 2 daughters and 1 son his was in the waiting area during the procedure his coronary artery bypass surgery was performed in September 2014 and drug-eluting stent of ramus intermedius 2019 risk and benefit of procedure discussed with the patient and he was consented. + + DIAGNOSTIC FINDINGS + + Coronary Anatomy: Right Dominant Injection Site(s): Femoral Artery LMT: The LMT has mild luminal irregularities. LAD: The LAD has severe diffuse disease. LCX: The Circumflex has severe diffuse disease. RAMUS: Ramus Status: Not Applicable. RCA: The RCA has severe diffuse disease. GRAFTS: Left Internal Mammary Artery Graft to the Left Anterior Descending . Additional Comments - Patent. Left Internal Mammary Artery Graft to the First Diagonal . Additional Comments - Patent. Saphenous Vein Graft to the Right Posterior Descending Artery . Additional Comments - Patent. Saphenous Vein Graft to the OM-1 First Obtuse Marginal Branch . Additional Comments - Total occlusion. + + IMPRESSION/PLAN + + Impression:Findings: 1. Hemodynamic results: There was no gradient across the aortic valve LVEDP 10 mmHg. Right heart catheter pressures RA 3, RV 28/2, PA 27/8 mean 16 wedge pressure was 10. The [place] cardiac output was 6.2 L/min. 2. Angiographic results: A. Stebbins coronary angiography: 1. Left main: Large-caliber vessel with minor plaque disease normally bifurcates into LAD and none dominant circumflex. 2. Left anterior descending coronary artery: Large-caliber vessel reaches wraps around the apex type III LAD, proximal vessel with 20 to 40% plaque disease mid vessel long 60 up to 80% stenosis ESPINOZA was widely patent with competitive flow from the LAD to the ESPINOZA. Distal LAD beyond this ESPINOZA anastomosis with moderate disease. 3. Circumflex coronary artery: Large-caliber vessel gives origin to few obtuse marginal branches the first obtuse marginal branch stent widely patent. Could be considered codominant with an origin of very small PDA. 20 to 30% plaque disease were noted beyond these origin of the first obtuse marginal branch. 4. Right coronary artery: Dominant vessel with diffuse 60 to 70% in-stent restenosis distal vessel totally occluded. B. Bypass graft angiography: 1. Left internal mammary sequential to LAD diagonal: Wide patent small caliber not well-developed probably due to the competitive flow from the [place] competitive flow. 2. Reverse saphenous venous graft to PDA: Wide patent with excellent antegrade flow. 3. Reverse saphenous venous graft to circumflex OM: Totally occluded. Postop Diagnosis: 1. Noninvasive nuclear evidence of normal ejection fraction 56%. 2. Three-vessel coronary artery disease: A. LM: Minor plaque disease. B. LAD: Mid vessel moderately occlusive disease. C. CX: The first obtuse marginal branch stent wide patent. D. RCA: Dominant, distal total occlusion. 3. ESPINOZA to LAD diagonal sequential: Wide patent. 4. SVG to circumflex OM: Totally occluded. 5. SVG to PDA: Wide patent 6. Within normal right heart pressures. Recommended Treatment: Medical Therapy. Plan: Continue excellent risk factors modification patient with three-vessel coronary artery disease patent SVG to PDA and ESPINOZA to LAD diagonal is lost to the graft to circumflex OM but the stent of the OM1 wide patent. Right heart cath within normal pressures. Unclear the etiology of the patient symptomatology. Procedure Narrative: Percutaneous Interventions: +------+ + Lesion Complications +------+ + None +------+ + None +------+ + None +------+ + None +------+ + NULL +------+ + NULL +------+ + NULL +------+ + +------+ + + + + Lesion Pre Stenosis Post Stenosis Pre Jared Score Post Jared Score +------+ + + + + 0.00 0 NULL NULL +------+ + + + + NULL NULL +------+ + + + + NULL NULL +------+ + + + + NULL NULL +------+ + + + + NULL NULL +------+ + + + + NULL NULL +------+ + + + + NULL NULL +------+ + + + + + + HEMODYNAMICS - XPER + + + +------+-----+-------+-----+------+------+ Measurement Name Sys Shelli End Shelli Mean A Wave V Wave + +------+-----+-------+-----+------+------+ AO 0.00 0.00 0.00 + +------+-----+-------+-----+------+------+ LV 126.00 7.00 14.00 + +------+-----+-------+-----+------+------+ LVp 126.00 5.00 10.00 + +------+-----+-------+-----+------+------+ AOp 121.00 72.00 94.00 + +------+-----+-------+-----+------+------+ PA 27.00 8.00 16.00 + +------+-----+-------+-----+------+------+ PW 7.00 9.00 9.00 + +------+-----+-------+-----+------+------+ RV 28.00 0.00 2.00 + +------+-----+-------+-----+------+------+ RA 1.00 2.00 3.00 + +------+-----+-------+-----+------+------+ Oximetry: + +----+ +-----+---+-----+ Time Site O2 Saturation O2 PO2 HB + +----+ +-----+---+-----+ 10/05/2024 8:42:47 AM AO 100.00 16. 1240 + +----+ +-----+---+-----+ 10/05/2024 8:42:47 AM RA 76.00 12.82 1240 + +----+ +-----+---+-----+ 10/05/2024 8:42:47 AM AO 100.00 16.86 12.40 + +----+ +-----+---+-----+ 10/05/2024 8:42:47 AM PA 72.00 12.14 12.40 + +----+ +-----+---+-----+ Cardiac Outputs: +--------+------+ ASUNCION SV 111.00 +--------+------+ ASUNCION CO 7.21 +--------+------+ ASUNCION CI 3.29 +--------+------+ ASUNCION HR +--------+------+ MAN CO +--------+------+ MAN CI +--------+------+ TD SV +--------+------+ TD CO +--------+------+ TD CI +--------+------+ ANGIO SV +--------+------+ ANGIO CO +--------+------+ ANGIO CI +--------+------+ + + ADVERSE OUTCOME(s)/COMPLICATION(s) + + None + + PROCEDURAL & TECHNICAL DETAILS + + Date Time Description 10/05/2024 12:00:00 AM D - RHC- CORS- LV & GRAFTS ADVERSE OUTCOME(s)/COMPLICATION(s)None Recommended Treatment: *MEDICAL HISTORY* CAD Presentation: Symptoms Likely to be Ischemic Angina Classification (within 2 weeks): No Angina No Heart Failure Family History of CAD: Yes Dyslipidemia: Yes Dialysis: Currently not on dialysis Left Ventricle EF: 55. LVEF at Discharge: Procedure Details: Blood Loss: < 30ml Specimen: No Specimen Obtained Recent PCI Failure of Treated Vessel: Contrast: Radiation: Procedure performed under Fluoroscopic Guidance Total Dose 783.20 mGy Dose Area Product 0.01 Gy*m Total Exposure Time 952.66 sec Baseline: HGB: Creatinine: Glucose: INR: Conscious Sedation Summary: Moderate sedation consisting of continuous ECG, pulse oxymetry and cardiopulmonary monitoring was performed by the Cardiology Nurse, overseen by the performing physician(s). Attending Physician Presence Attestation: Entire Procedure Electronically Submitted by: Melecio Katz MD On: 10/06/2024 at 4:24:50 PM Final (Updated) CC [employer] [facility] Image : [id number] See Link below for Image NURSING PROG Observed: 10/02/2024 3:27 PM Status: COMPLETED Source: [facility] HNO ID: [id number] Author: JULES BALDERRAMA RN Service: ? Author Type: Registered Nurse Type: Nursing Progress Note Filed: 10/02/2024 15:27 Note Text: PRE-PROCEDURE INSTRUCTIONS TO PREPARE FOR YOUR PROCEDURE: Your arrival time for your procedure is 0615. Do NOT eat any solid foods after MIDNIGHT the night prior to your procedure - this includes gum or mints. You can drink clear liquids* up until 0600 , which is 2 hours before your arrival time. *Clear liquids = water, carbohydrate drink (sports drink that is clear or yellow in color), Ensure Pre-Surgery (given by ILIA or heidy DrMilton), fruit juice without pulp (apple/cranberry), clear tea, black coffee (no cream). NO CARBONATED BEVERAGES AND NO ALCOHOL. Shower the morning of the procedure, put on clean clothes, and have clean sheets for your bed to help prevent infection after your procedure. Leave all valuables such as jewelry including rings, piercings, wallets, and purses at home. Wear comfortable, loose-fitting clothing. If you wear glasses or contacts, please bring a case. SPECIAL INSTRUCTIONS: If instructed, bring your first voided urine specimen with you. If you were provided skin preparation to use prior to your procedure, complete this as directed. If you use crutches or a walker, bring them with you. If you have a home CPAP/BIPAP machine, bring it with you. If you were instructed to complete a fleets enema or bowel prep, complete as directed. Bring copy of Living Will/Power of Oil Well Engineer. Do not smoke or chew. If you use tobacco, quit or at least cut down before surgery. Do not smoke or chew after midnight the day before your surgery. This effects bleeding, infection, healing, and so much more. Do not take any Diet or Herbal Supplements 2 weeks prior to your surgery date. Please notify your physician if there is any change in your physical condition such as a cold, cough, fever, sore throat, or skin irritation near the surgical site. Visitors under the age of 14 are restricted in the Surgery Center. UPON ARRIVAL: Access to [facility] (the [facility] building) is located on [address] [employer] parking is available for your convenience from 5am-5pm- there is a $5.00 charge for this service. Take the elevators directly inside the entrance to the 1st Floor Surgery Lobby. Sign in at the podium located to the left when you get off the elevators. A payment may be expected at the time of service. One visitor may come back to the preoperative area with you. The preoperative staff will be reviewing your medical history, please let them know if you prefer not to have a visitor with you during this time. Once you are ready for your procedure, two visitors at a time are permitted in your preprocedure room. ALL MEDICATION INSTRUCTIONS FROM CARDIOLOGY CBC PNL BLD AUTO Collected: 09/25/2024 9:58 AM Statu s: F Source: [facility] Order Comment: Specimen Type : BLOOD SPECIMEN Ordering Facility: [facility] Address: [address] [place] [address] TYPE CODE TESTS RESULT OUT OF RANGE REFERENCE UNITS LAB 6690-2(LOINC) WBC # Bld Auto 7.06 3.70-11.00 k/uL LAB 789-8(LOINC) RBC # Bld Auto 4.75 4.20-6.00 m/ uL LAB 718-7(LOINC) Hgb Bld-mCnc 12.4 Low 13.0-17.0 g/dL LAB 4544-3(LOINC) Hct VFr Bld Auto 40.3 39.0-51.0 % LAB 787-2(LOINC) MCV RBC Auto 84.8 80.0-100.0 fL LAB 785-6(LOINC) MCH RBC Qn Auto 26.1 26.0-34.0 pg LAB 786-4(LOINC) MCHC RBC Auto-mCnc 30.8 30.5-36.0 g/dL LAB 36057-4(INC) RDW RBC-Rto 18.2 High 11.5-15.0 % LAB 777-3([facility]) Platelet # Bld Auto 149 Low 150-400 k/uL LAB 47803-9([facility]) PMV Bld Auto 9.7 9.0-12.7 fL LAB 771-6([facility]) nRBC # Bld Auto <0.01 <0.01 k/uL Performed By: #### 91542-5 # ### [facility] CLIA [id number] [address] [place] [address] [place] COMP METAB 2000 PNL SERPL Collected: 9:58 AM Status: F Source: [facility] Order Comment: Specimen Type : BLOOD SPECIMEN Ordering Facility: [facility] Address: [address] [place] [address] TYPE CODE TESTS RESULT OUT OF RANGE REFERENCE UNITS LAB 2885-2(LOINC) Prot SerPl-mCnc 6.9 6.0-8.5 g/dL LAB 1751-7(LOINC) Albumin SerPl-mCnc 3.5 3.2-5.0 g/dL LAB 94619-5(LOINC) Calcium SerPl-mCnc 9.7 8.5-10.5 mg/dL LAB 1975-2(LOINC) Bilirub SerPl-mCnc 0.4 0.2-1.0 mg/dL LAB 6768-6(LOINC) ALP SerPl-cCnc 45 45-117 U/L LAB 1920-8(LOINC) AST SerPl-cCnc 24 8-34 U/L Result Comment: Results may be falsely depressed after the administration of Sulfasalazine and/or Sulfapyridine. LAB 1742-6(LOINC) ALT SerPl-cCnc 28 13-61 U/L Result Comment: Results may be falsely depressed after the administration of Sulfasalazine and/or Sulfapyridine. LAB 2345-7(LOINC) Glucose SerPl-mCnc 127 High 70-100 mg/dL Result Comment: The [place] Diabetes Association (ADA) provides guidance for cutoff values for fasting glucose and random glucose. The ADA defines fasting as no caloric intake for at least 8 hours. Fasting plasma glucose results between 100 to 125 mg/dL indicate increased risk for diabetes (prediabetes). Fasting plasma glucose results greater than or equal to 126 mg/dL meet the criteria for diagnosis of diabetes. In the absence of unequivocal hyperglycemia, results should be confirmed by repeat testing. In a patient with classic symptoms of hyperglycemia or hyperglycemic crisis, random plasma glucose results greater than or equal to 200 mg/dL meet the criteria for diagnosis of diabetes. Reference: Standards of Medical Care in Diabetes 2016, [place] Diabetes Association. Diabetes Care. 2016.39(Suppl 1). Results may be falsely elevated after the administration of Sulfapyridine. Results may be falsely depressed after the administration of Sulfasalazine. LAB 3094-0(LOINC) BUN SerPl-mCnc 25 7-26 mg/ dL LAB 2160-0(LOINC) Creat SerPl-mCnc 1.13 0.50-1.40 mg/dL Result Comment: Patients rec eiving either N-Acetylcysteine (NAC) or Metamizole prior to venipuncture, may have falsely depressed results. LAB 2951-2(LOINC) Sodium SerPl-sCnc 138 136-145 mmol/L LAB 2823-3(LOINC) Potassium SerPl-sCnc 4.4 3.5-5.1 mmol/L LAB 2075-0(LOINC) Chloride SerPl-sCnc 107 98-107 mmol/L LAB 2028-9(LOINC) CO2 SerPl-sCnc 26 21-32 mmo l/L LAB 04701-5(LOINC) Anion Gap SerPl-sCnc 5 5-16 mmol/L LAB 12437-2(LOINC) Creatinine + eGFR Pnl SerPlBld 69 >=60 mL/min/1. 73m??? Result Comment: Estimated Gl omerular Filtration Rate (eGFR) is calculated using the 2020 CKD-EPI creatinine equation. This equation utilizes serum creatinine, sex, and age as parameters. The creatinine assay has traceable calibration to isotope dilution-mass spectrometry. Refer to KDIGO guidelines for clinical interpretation. In patients with unstable renal function, e.g. those with acute kidney injury, the eGFR may not accurately reflect actual GFR. Performed By: #### 59911-0, #### [facility] CLIA [id number] [address] [place] [address] [place] MAGNESIUM SERPL-MCNC Collected: 09/25/2024 9:58 AM S tatus: F Source: [facility] Order Comment: Specimen Type : BLOOD SPECIMEN Ordering Facility: [facility] Address: [address] [place] [address] TYPE CODE TESTS RESULT OUT OF RANGE REFERENCE UNITS LAB (LOINC) Magnesium SerPl-mCnc 2.2 1.6-2.6 mg/dL Performed By: #### 54671-7, #### [facility] CLIA [id number] [address] [place], [place] [address] [facility] PROGRESS Observed: 09/25/2024 9:00 AM Status: COMPLETED Source: [facility] HNO ID: [id number] Author: LALO RIVERA APRN.BOBBIN PRESSER Service: ? Author Type: Nurse Practitioner Type: Progress Notes Filed: 09/25/2024 09:45 Note Text: Heart, Vascular and Thoracic [place] [facility] Department of Cardiovascular Medicine [facility] General Cardiology OUTPATIENT VISIT 09/25/2024 ESTABLISHED PATIENT PRIMARY CARE PHYSICIAN: Anthony Oropeza [facility] [place] [address] CHIEF COMPLAINT: H and P for hearth cath no concerns HISTORY OF PRESENT ILLNESS: Bashir Oropeza is a 74 year old male patient of Dr Doty (last seen by Dr Doty on 07/21/2024) with PMHx of CAD, status post previous stenting to the RCA x3 stents in 2014, status post CABG in 2014, s/p VERITO stent to the OM of the circumflex artery 05/24/18, and PCI/VERITO to the inferior ramus branch of the first OM 09/08/18, intermediate responder to Plavix, type 2 diabetes mellitus, hypertension, hyperlipidemia, GERD, and arthritis. They are here today for H and P for heart cath. Patient was last seen by Dr. Doty on 07/21/24: The patient underwent an echocardiogram 07/10/2022 following shortness of breath. This revealed preserved left ventricular systolic function. The patient reports he recently was diagnosed with bladder cancer. The patient underwent transurethral resection of multiple large bladder tumors greater than 5 cm in size and instillation of Mitomycin on 07/15/2024. From a cardiac standpoint, he denies chest pain, palpitations, dyspnea or syncope. The patient did have an episode yesterday in which he felt woozy/lightheaded that persisted for 10 minutes. His blood pressure yesterday was 100mmHg systolic. He has not been eating as much as usual recently, however, he has not lost any weight. He has been increasing his fluid intake following his bladder surgery. He does not smoke or drink alcohol. He does some walking but really does not exercise. The patient declined to get the COVID-19 vaccination. Patient reports feeling shortness of breath. Patient states he can only walk about 15 feet before he has to sit down to rest. Patient also notes dizziness at times. He notes he has had some low blood pressures in the past, he is currently monitoring his blood pressures. Blood pressure was 114/64. Patient denies any symptoms of dizziness here in the office. Patient denies chest pain, orthopnea, paroxysmal dyspnea, syncope, near-syncope, or edema. Cardiac medications reconciled today with patient and are as per medication list. Echo 07/10/2022: CONCLUSIONS: - Exam indication: Shortness of Breath - The left ventricle is normal in size. There is moderate concentric left ventricular hypertrophy. Left ventricular systolic function is normal. EF = 55 ? 5% (2D biplane) Definity contrast used for endocardial border detection. Normal left ventricular diastolic function. possible mild distal septal hypokinesis noted - The right ventricle is normal in size. Right ventricular systolic function is normal. no significant valvular abnormalities - The patient has not had a prior CC echocardiographic exam for comparison. Stress test 09/02/2024: CONCLUSIONS: 1. SPECT Perfusion Study: Abnormal. 2. No evidence of scarred myocardium. 3. There is mild (<10%) ischemia in the territory of the RCA. 4. Left ventricle is normal in size. The left ventricle systolic function is mildly decreased. Gated Stress FBP Gated Rest FBP LVEF % 56 46 Heart cath 07/13/2021: Scanned Documents PAST MEDICAL HISTORY: PAST MEDICAL HISTORY Diagnosis Date Arthritis all over CAD (coronary artery disease) Cancer (HCC) 11/2021 bladder ca- tumor removed Coronary artery disease 2014 stents- Dr. Doty Esophageal reflux controlled with medication Hx of cystoscopy recently- Dr. Joseph Hypertension bp controlled with medication Mixed hyperlipidemia Past heart attack either 7315-8332 Systolic CHF (HCC) Type 2 diabetes mellitus (HCC) PAST SURGICAL HISTORY: PAST SURGICAL HISTORY Procedure Laterality Date ANES TRANSURETHRAL RESECTION OF BLADDER TUMOR 2021 CABG (4) VEIN GRAFTS AND ARTERIAL GRAFT(S) 09/2014 CYSTOSCOPY FAMILY HISTORY: History reviewed. No pertinent family history. SOCIAL HISTORY: Social History Tobacco Use Smoking status: Former Current packs/day: 0.00 Average packs/day: 2.0 packs/day for 30.0 years (60.0 ttl pk-yrs) Types: Cigarettes Start date: 1984 Quit date: 2014 Years since quittin.3 Smokeless tobacco: Never Substance Use Topics Alcohol use: Not Currently Drug use: Never ALLERGIES: Prednisone and Tamsulosin CURRENT MEDICATIONS: Current Outpatient Medications Medication Sig alfuzosin SR (UROXATRAL) 10 mg 24 hr tablet Take 10 mg by mouth once daily. ciprofloxacin HCl (CIPRO) 500 mg tablet Take 500 mg by mouth two times a day. oxybutynin ER (DITROPAN XL) 10 mg 24 hr tablet Take 10 mg by mouth once daily. lisinopril (ZESTRIL) 20 mg tablet Take 0.5 tablets by mouth once daily. atorvastatin (LIPITOR) 80 mg tablet Take 1 tablet by mouth once daily. ezetimibe (ZETIA) 10 mg tablet Take 1 tablet by mouth once daily. metoprolol succinate ER (TOPROL XL) 25 mg 24 hr tablet Take 1 tablet by mouth two times a day. pantoprazole DR (PROTONIX) 40 mg tablet Take 1 tablet by mouth once daily. dapagliflozin propanediol (FARXIGA) 10 mg tablet Take 1 tablet by mouth daily with breakfast. ticagrelor (BRILINTA) 90 mg tablet Take 1 tablet by mouth two times a day. nitroglycerin sublingual (NITROQUICK) 0.4 mg SL tablet Dissolve 1 tablet under the tongue every 5 minutes as needed for chest pain. acetaminophen 325 mg cap Take by mouth as needed. aspirin 81 mg cap Take 81 mg by mouth once daily. Stopped 02/07/22 on own, never heard from Dr. Doty No current facility-administered medications for this visit. VITAL SIGNS: 09/25/24 0854 BP: 114/64 BP Site: Left Arm BP Position: Sitting BP Cuff Size: Large Adult Pulse: 72 SpO2: 98% Weight: 104.5 kg (230 lb 6.4 oz) Height: 177.8 cm (5' 10) Last 3 Encounter BP Readings: Date: BP: 07/21/2024 80/51 03/12/2023 131/80 06/21/2022 142/82 Last 3 Encounter Pulse Readings: Date: Pulse: 07/21/2024 96 03/12/2023 73 06/19/2022 85 Last 3 Encounter Wt Readings: Date: Wt: 07/21/2024 104.6 kg (230 lb 9.6 oz) 03/12/2023 99.3 kg (219 lb) 06/21/2022 110.2 kg (243 lb) PHYSICAL EXAMINATION: Physical Exam Constitutional: Appearance: Normal appearance. HENT: Head: Normocephalic and atraumatic. Mouth/Throat: Pharynx: Oropharynx is clear. Eyes: Conjunctiva/sclera: Conjunctivae normal. Cardiovascular: Rate and Rhythm: Normal rate and regular rhythm. Pulses: Normal pulses. Heart sounds: Normal heart sounds. Pulmonary: Effort: Pulmonary effort is normal. Breath sounds: Normal breath sounds. Abdominal: General: Bowel sounds are normal. Musculoskeletal: Right lower leg: No edema. Left lower leg: No edema. Skin: General: Skin is warm and dry. Capillary Refill: Capillary refill takes less than 2 seconds. Neurological: General: No focal deficit present. Mental Status: He is alert and oriented to person, place, and time. LABS: Last A1C: 7.1 - 07/14/2024 TSH 0.725 01/09/2023 Triglyceride 91 07/14/2024 HDL Cholesterol 37 07/14/2024 LDL Cholesterol 57 07/14/2024 Cholesterol, Total 112 07/14/2024 No results found for: MG Latest Ref Rng AND Units 07/14/2024 01/09/2023 06/22/2022 BMP Glucose 70 - 100 mg/dL 153 284 129 BUN 7 - 26 mg/dL 20 22 23 Creatinine 0.50 - 1.40 mg/dL 0.96 1.15 1.06 Sodium 136 - 145 mmol/L 141 137 142 Potassium 3.5 - 5.1 mmol/L 4.6 4.9 4.8 Chloride 98 - 107 mmol/L 110 104 109 CO2 21 - 32 mmol/L 28 22 27 Anion Gap 5 - 16 mmol/L 3 11 6 Calcium 8.5 - 10.5 mg/dL 9.7 9.7 10.1 EGFR >=60 mL/min/1.73m? 85 68 76 Hemoglobin Date Value 07/14/2024 12.4 g/dL 07/12/2021 13.7 G/DL Hematocrit (%) Date Value 07/14/2024 39.4 07/12/2021 39.6 WBC Date Value 07/14/2024 8.54 k/uL 07/12/2021 6.8 K/CUMM Platelet Count Date Value 07/14/2024 159 k/uL 07/12/2021 188 K/CU MM Lab Results Component Value Date PBNP 262 (H) 07/14/2024 CARDIOVASCULAR MEDICINE TESTING: I have personally reviewed the Echocardiogram and Stress Test. PLAN AND RECOMMENDATIONS: Abnormal Stress test: Patient here for an HANDP prior to upcoming cath procedure in the setting of an abnormal stress test. Patient notes shortness of breath with exertion, and can only walk about 15 feet prior to needing rest. Discussed cath procedure and risks. Reviewed medication list and discussed with patient medications to take and hold prior to surgery. Handouts given. Questions answered. Pre procedure labs ordered today: CBC, CMP and Mg+ Some elements copied from Dr. Doty, the elements have been updated and all reflect current decision making from today, 09/25/2024. I spent a total of 30 minutes today which included preparing to see the patient/chart review, [id number] patient care, obtaining/reviewing appropriate history, obtaining medically appropriate exam, counseling and educating patient/family, ordering/interpreting tests/procedures, managing medications, completing clinical documentation, and care coordination. Portions of this progress note been completed using dictation software, some mild spelling/grammar inconsistencies may exist. Lalo Rivera APRN, CNP cc: Anthony Oropeza CNP CNOV Observed: 09/25/2024 9:00 AM Status: COMPLETED Source: [facility] Office Visit (CARMOB) BASHIR OROPEZA ([id number]) 1950 M Date Time Provider Department 09/25/24 9:00 AM LALO RIVERA During your visit today, we recorded the following information about you: Pulse Blood pressure Weight Height 72/minute 114/64 104.5 kg 1.778 m Lalo Rivera APRN.BOBBIN PRESSER 09/25/2024 9:45 AM Signed [facility] [place] [facility] Department of Cardiovascular Medicine [facility] General Cardiology OUTPATIENT VISIT 09/25/2024 ESTABLISHED PATIENT PRIMARY CARE PHYSICIAN: Anthony Oropeza [address] [place] [address] CHIEF COMPLAINT: H and P for hearth cath no concerns HISTORY OF PRESENT ILLNESS: Bashir Oropeza is a 74 year old male patient of Dr Doty (last seen by Dr Doty on 07/21/2024) with PMHx of CAD, status post previous stenting to the RCA x3 stents in 2014, status post CABG in 2014, s/p VERITO stent to the OM of the circumflex artery 05/24/18, and PCI/VERITO to the inferior ramus branch of the first OM 09/08/18, 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 They are here today for H and P for heart cath. Patient was last seen by Dr. Doty on 07/21/24: The patient underwent an echocardiogram 07/10/2022 following shortness of breath. This revealed preserved left ventricular systolic function. The patient reports he recently was diagnosed with bladder cancer. The patient underwent transurethral resection of multiple large bladder tumors greater than 5 cm in size and instillation of Mitomycin on 07/15/2024. From a cardiac standpoint, he denies chest pain, palpitations, dyspnea or syncope. The patient did have an episode yesterday in which he felt woozy/lightheaded that persisted for 10 minutes. His blood pressure yesterday was 100mmHg systolic. He has not been eating as much as usual recently, however, he has not lost any weight. He has been increasing his fluid intake following his bladder surgery. He does not smoke or drink alcohol. He does some walking but really does not exercise. The patient declined to get the COVID-19 vaccination. Patient reports feeling shortness of breath. Patient states he can only walk about 15 feet before he has to sit down to rest. Patient also notes dizziness at times. He notes he has had some low blood pressures in the past, he is currently monitoring his blood pressures. Blood pressure was 114/64. Patient denies any symptoms of dizziness here in the office. Patient denies chest pain, orthopnea, paroxysmal dyspnea, syncope, near-syncope, or edema. Cardiac medications reconciled today with patient and are as per medication list. Echo 07/10/2022: CONCLUSIONS: - Exam indication: Shortness of Breath - The left ventricle is normal in size. There is moderate concentric left ventricular hypertrophy. Left ventricular systolic function is normal. EF = 55 ? 5% (2D biplane) Definity contrast used for endocardial border detection. Normal left ventricular diastolic function. possible mild distal septal hypokinesis noted - The right ventricle is normal in size. Right ventricular systolic function is normal. no significant valvular abnormalities - The patient has not had a prior CC echocardiographic exam for comparison. Stress test 09/02/2024: CONCLUSIONS: 1. SPECT Perfusion Study: Abnormal. 2. No evidence of scarred myocardium. 3. There is mild (<10%) ischemia in the territory of the RCA. 4. Left ventricle is normal in size. The left ventricle systolic function is mildly decreased. Gated Stress FBP Gated Rest FBP LVEF % 56 46 Heart cath 07/13/2021: Scanned Documents PAST MEDICAL HISTORY: PAST MEDICAL HISTORY Diagnosis Date Arthritis all over CAD (coronary artery disease) Cancer (HCC) 11/2021 bladder ca- tumor removed Coronary artery disease 2015 stents- Dr. Doty Esophageal reflux controlled with medication Hx of cystoscopy recently- Dr. Joseph Hypertension bp controlled with medication Mixed hyperlipidemia Past heart attack either [id number] Systolic CHF (HCC) Type 2 diabetes mellitus (HCC) PAST SURGICAL HISTORY: PAST SURGICAL HISTORY Procedure Laterality Date ANES TRANSURETHRAL RESECTION OF BLADDER TUMOR 2021 CABG (4) VEIN GRAFTS AND ARTERIAL GRAFT(S) 09/2014 CYSTOSCOPY FAMILY HISTORY: History reviewed. No pertinent family history. SOCIAL HISTORY: Social History Tobacco Use Smoking status: Former Current packs/day: 0.00 Average packs/day: 2.0 packs/day for 30.0 years (60.0 ttl pk-yrs) Types: Cigarettes Start date: 1984 Quit date: 2015 Years since quittin.3 Smokeless tobacco: Never Substance Use Topics Alcohol use: Not Currently Drug use: Never ALLERGIES: Prednisone and Tamsulosin CURRENT MEDICATIONS: Current Outpatient Medications Medication Sig alfuzosin SR (UROXATRAL) 10 mg 24 hr tablet Take 10 mg by mouth once daily. ciprofloxacin HCl (CIPRO) 500 mg tablet Take 500 mg by mouth two times a day. oxybutynin ER (DITROPAN XL) 10 mg 24 hr tablet Take 10 mg by mouth once daily. lisinopril (ZESTRIL) 20 mg tablet Take 0.5 tablets by mouth once daily. atorvastatin (LIPITOR) 80 mg tablet Take 1 tablet by mouth once daily. ezetimibe (ZETIA) 10 mg tablet Take 1 tablet by mouth once daily. metoprolol succinate ER (TOPROL XL) 25 mg 24 hr tablet Take 1 tablet by mouth two times a day. pantoprazole DR (PROTONIX) 40 mg tablet Take 1 tablet by mouth once daily. dapagliflozin propanediol (FARXIGA) 10 mg tablet Take 1 tablet by mouth daily with breakfast. ticagrelor (BRILINTA) 90 mg tablet Take 1 tablet by mouth two times a day. nitroglycerin sublingual (NITROQUICK) 0.4 mg SL tablet Dissolve 1 tablet under the tongue every 5 minutes as needed for chest pain. acetaminophen 325 mg cap Take by mouth as needed. aspirin 81 mg cap Take 81 mg by mouth once daily. Stopped 02/07/22 on own, never heard from Dr. Doty No current facility-administered medications for this visit. VITAL SIGNS: 09/25/24 0854 BP: 114/64 BP Site: Left Arm BP Position: Sitting BP Cuff Size: Large Adult Pulse: 72 SpO2: 98% Weight: 104.5 kg (230 lb 6.4 oz) Height: 177.8 cm (5' 10) Last 3 Encounter BP Readings: Date: BP: 07/21/2024 80/51 03/12/2023 131/80 06/21/2022 142/82 Last 3 Encounter Pulse Readings: Date: Pulse: 07/21/2024 96 03/12/2023 73 06/19/2022 85 Last 3 Encounter Wt Readings: Date: Wt: 07/21/2024 104.6 kg (230 lb 9.6 oz) 03/12/2023 99.3 kg (219 lb) 06/21/2022 110.2 kg (243 lb) PHYSICAL EXAMINATION: Physical Exam Constitutional: Appearance: Normal appearance. HENT: Head: Normocephalic and atraumatic. Mouth/Throat: Pharynx: Oropharynx is clear. Eyes: Conjunctiva/sclera: Conjunctivae normal. Cardiovascular: Rate and Rhythm: Normal rate and regular rhythm. Pulses: Normal pulses. Heart sounds: Normal heart sounds. Pulmonary: Effort: Pulmonary effort is normal. Breath sounds: Normal breath sounds. Abdominal: General: Bowel sounds are normal. Musculoskeletal: Right lower leg: No edema. Left lower leg: No edema. Skin: General: Skin is warm and dry. Capillary Refill: Capillary refill takes less than 2 seconds. Neurological: General: No focal deficit present. Mental Status: He is alert and oriented to person, place, and time. LABS: Last A1C: 7.1 - 07/14/2024 TSH 0.725 01/09/2023 Triglyceride 91 07/14/2024 HDL Cholesterol 37 07/14/2024 LDL Cholesterol 57 07/14/2024 Cholesterol, Total 112 07/14/2024 No results found for: MG Latest Ref Rng AND Units 07/14/2024 01/09/2023 06/22/2022 BMP Glucose 70 - 100 mg/dL 153 284 129 BUN 7 - 26 mg/dL 20 22 23 Creatinine 0.50 - 1.40 mg/dL 0.96 1.15 1.06 Sodium 136 - 145 mmol/L 141 137 142 Potassium 3.5 - 5.1 mmol/L 4.6 4.9 4.8 Chloride 98 - 107 mmol/L 110 104 109 CO2 21 - 32 mmol/L 28 22 27 Anion Gap 5 - 16 mmol/L 3 11 6 Calcium 8.5 - 10.5 mg/dL 9.7 9.7 10.1 EGFR >=60 mL/min/1.73m? 85 68 76 Hemoglobin Date Value 07/14/2024 12.4 g/dL 07/12/2021 13.7 G/DL Hematocrit (%) Date Value 07/14/2024 39.4 07/12/2021 39.6 WBC Date Value 07/14/2024 8.54 k/uL 07/12/2021 6.8 K/CUMM Platelet Count Date Value 07/14/2024 159 k/uL 07/12/2021 188 K/CU MM Lab Results Component Value Date PBNP 262 (H) 07/14/2024 CARDIOVASCULAR MEDICINE TESTING: I have personally reviewed the Echocardiogram and Stress Test. PLAN AND RECOMMENDATIONS: Abnormal Stress test: Patient here for an HANDP prior to upcoming cath procedure in the setting of an abnormal stress test. Patient notes shortness of breath with exertion, and can only walk about 15 feet prior to needing rest. Discussed cath procedure and risks. Reviewed medication list and discussed with patient medications to take and hold prior to surgery. Handouts given. Questions answered. Pre procedure labs ordered today: CBC, CMP and Mg+ Some elements copied from Dr. Doty, the elements have been updated and all reflect current decision making from today, 09/25/2024. I spent a total of 30 minutes today which included preparing to see the patient/chart review, [id number] patient care, obtaining/reviewing appropriate history, obtaining medically appropriate exam, counseling and educating patient/family, ordering/interpreting tests/procedures, managing medications, completing clinical documentation, and care coordination. Portions of this progress note been completed using dictation software, some mild spelling/grammar inconsistencies may exist. Lalo Rivera APRN, CNP cc: Anthony Oropeza CNP Allergies As of Date: 09/25/2024 Noted Allergy Reaction PREDNISONE 02/08/2022 9 - Itching Comments: Flushed red TAMSULOSIN 06/19/2022 9 - Itching Date Reviewed: 09/25/2024 Reviewed by: Priscilla Vargas MA - Fully Assessed Reason for Visit: Follow Up [171] Cmt: H and P for heart cath Primary Visit Diagnosis:Abnormal stress test [R94.39] Other Visit Diagnoses:RICHARDS (dyspnea on exertion) [R06.09] Coronary artery disease involving [place] heart without angina pectoris, unspecified vessel or lesion type [I25.10] Order(s):COMPLETE BLOOD COUNT [SQCBC] Order #: [id number] FUTURE COMPREHENSIVE METABOLIC PANEL [SQCMP] Order #: [id number] FUTURE MAGNESIUM [SQMG1] Order #: [id number] FUTURE Prescriptions as of 09/25/2024 - alfuzosin SR (UROXATRAL) 10 mg 24 hr tablet Take 10 mg by mouth once daily. - ciprofloxacin HCl (CIPRO) 500 mg tablet Take 500 mg by mouth two times a day. - oxybutynin ER (DITROPAN XL) 10 mg 24 hr tablet Take 10 mg by mouth once daily. - lisinopril (ZESTRIL) 20 mg tablet Take 0.5 tablets by mouth once daily. - atorvastatin (LIPITOR) 80 mg tablet Take 1 tablet by mouth once daily. - ezetimibe (ZETIA) 10 mg tablet Take 1 tablet by mouth once daily. - metoprolol succinate ER (TOPROL XL) 25 mg 24 hr tablet Take 1 tablet by mouth two times a day. - pantoprazole DR (PROTONIX) 40 mg tablet Take 1 tablet by mouth once daily. - dapagliflozin propanediol (FARXIGA) 10 mg tablet Take 1 tablet by mouth daily with breakfast. - ticagrelor (BRILINTA) 90 mg tablet Take 1 tablet by mouth two times a day. - nitroglycerin sublingual (NITROQUICK) 0.4 mg SL tablet Dissolve 1 tablet under the tongue every 5 minutes as needed for chest pain. - acetaminophen 325 mg cap Take by mouth as needed. - aspirin 81 mg cap Take 81 mg by mouth once daily. Stopped 02/07/22 on own, never heard from Dr. Doty Problem List As Of Date 09/25/2024 Noted Resolved Obesity, Class I, BMI 30-34.9 [E66.811] 02/13/2022 HTN (hypertension) [I10] 02/14/2022 WI (myocardial infarction) (HCC) [I21.9] 02/14/2022 CAD (coronary artery disease) [I25.10] 02/14/2022 Gastroesophageal reflux disease [K21.9] 02/14/2022 Carpal tunnel syndrome [G56.00] 10/05/2021 Cataract of both eyes [H26.9] 06/15/2022 Chronic systolic heart failure (HCC) [I50.22] 06/04/2019 Closed fracture of phalanx of toe [S92.919A] 06/15/2022 Coronary atherosclerosis of autologous bypass g*06/15/2022 Eczema of lower leg [L30.9] 06/15/2022 Folliculitis [L73.9] 06/15/2022 Hematuria [R31.9] 10/13/2021 History of myocardial infarction [I25.2] 04/29/2017 Hypercholesterolemia [E78.00] 04/29/2017 Mass of urinary bladder [N32.89] 10/13/2021 Osteoarthritis [M19.90] 06/15/2022 Right flank pain [R10.9] 10/05/2021 Seborrheic keratosis [L82.1] 06/15/2022 Status post coronary artery bypass graft [Z95.1]05/23/2018 Thrombocytopenia (HCC) [D69.6] 06/04/2019 Tingling sensation [R20.2] 06/04/2019 Encounter Status:Closed by LALO RIVERA on 09/25/24 TOSHIA Observed: 09/11/2024 12:00 AM Status: COMPLETED Source: [facility] Telephone (CARMOB) BASHIR OROPEZA ([id number]) 1950 M Date Time Provider Department 09/11/24 ALLEN DOTY During your visit today, we recorded the following information about you: Kimberly Marques 09/11/2024 12:08 PM Signed Akanksha from [facility] is requesting last office note to be faxed to them today if possible. Patient has a procedure on 09/16 that they are sending Clearance for, but just realized that patient has heart cath coming up. FAX # [phone] Last office note Karen Luna 09/11/2024 2:19 PM Signed Pulled and faxed 07/21/24 OV Note and requested clearance form Elham Buckley RN 09/14/2024 8:23 AM Signed [facility] called to check status of clearance. They would like to know if pt can hold Brilinta starting today. [phone]. Ask for Akanksha. They can take a verbal order. Sx is Saturday. Lilian Gómez RN 09/14/2024 8:45 AM Signed Please obtain the clearance form and have Dr. Doty signed today Karen Luna 09/14/2024 8:49 AM Signed Spoke Akanksha requesting clearance form. Karen Luna 09/14/2024 9:10 AM Signed Received and scanned clearance from [facility] and will put on desk. Allen Doty MD 09/14/2024 6:23 PM Signed I signed the Clearance, but evidently, anesthesia canceled the patient's procedure after they discovered that the patient is scheduled for a cardiac cath on 10/05/24. I was aware of the fact that the Cath had been scheduled, however, I was willing to clear the patient for the procedure based upon the relatively low risk nature of the findings, and the patient's lack of symptoms suggestive of unstable angina. As long as the surgery is not urgent in nature, I would have not problem having him wait until after the Cath. The interventionalist performing the procedure will need to be aware of the fact that if the patient does undergo a PCI, that this ophthalmology procedure might need to be postponed. Lilian Duarte RN 09/15/2024 8:26 AM Signed Susan, please review with Dr. Katz when he returns to [facility]. The patient's procedure I think is scheduled for October 05, 2024. Let me know if I need to do anything on my end. Karen Luna 09/16/2024 1:52 PM Signed Faxed, confirmed and scanned signed clearance into chart. Gillian Rivera 10/29/2024 12:36 PM Signed Patient called in upset that his information about being scheduled for a heart cath was given to the surgery center, He states that they only wanted to know if he was allowed to hold brilinta and somehow found out he was to have a heart cath. He states that this pushed his surgery back a month and would like to know this happened. I let him know that the surgery center requested his last office visit note along with the clearance. He states that he was ok with that being sent but his office visit note from 07/21/2024 was not when the cath was ordered so that information should of not been added. Please call him at [phone]. Lilian Gómez RN 10/29/2024 2:00 PM Signed I was not sure who faxed over all his information. I did advise him that medical records will check into this. Allergies As of Date: 09/11/2024 Noted Allergy Reaction PREDNISONE 02/08/2022 9 - Itching Comments: Flushed red TAMSULOSIN 06/19/2022 9 - Itching Date Reviewed: 07/21/2024 Reviewed by: Allen Doty MD - Fully Assessed Reason for Visit: Release Of Medical Records [2017] Cmt: Last office note Cardiac Clearance [4102] [facility] - Other [3602] Cmt: Ophthalmology procedure has been postponed Prescriptions as of 10/29/2024 - alfuzosin SR (UROXATRAL) 10 mg 24 hr tablet Take 10 mg by mouth once daily. - ciprofloxacin HCl (CIPRO) 500 mg tablet Take 500 mg by mouth two times a day. completed - oxybutynin ER (DITROPAN XL) 10 mg 24 hr tablet Take 10 mg by mouth once daily. - lisinopril (ZESTRIL) 20 mg tablet Take 0.5 tablets by mouth once daily. - atorvastatin (LIPITOR) 80 mg tablet Take 1 tablet by mouth once daily. - ezetimibe (ZETIA) 10 mg tablet Take 1 tablet by mouth once daily. - metoprolol succinate ER (TOPROL XL) 25 mg 24 hr tablet Take 1 tablet by mouth two times a day. - pantoprazole DR (PROTONIX) 40 mg tablet Take 1 tablet by mouth once daily. - dapagliflozin propanediol (FARXIGA) 10 mg tablet Take 1 tablet by mouth daily with breakfast. - ticagrelor (BRILINTA) 90 mg tablet Take 1 tablet by mouth two times a day. - nitroglycerin sublingual (NITROQUICK) 0.4 mg SL tablet Dissolve 1 tablet under the tongue every 5 minutes as needed for chest pain. - acetaminophen 325 mg cap Take by mouth as needed. - aspirin 81 mg cap Take 81 mg by mouth once daily. Stopped 02/07/22 on own, never heard from Dr. Doty Problem List As Of Date 09/11/2024 Noted Resolved Obesity, Class I, BMI 30-34.9 [E66.811] 02/13/2022 HTN (hypertension) [I10] 02/14/2022 WI (myocardial infarction) (HCC) [I21.9] 02/14/2022 CAD (coronary artery disease) [I25.10] 02/14/2022 Gastroesophageal reflux disease [K21.9] 02/14/2022 Carpal tunnel syndrome [G56.00] 10/05/2021 Cataract of both eyes [H26.9] 06/15/2022 Chronic systolic heart failure (HCC) [I50.22] 06/04/2019 Closed fracture of phalanx of toe [S92.919A] 06/15/2022 Coronary atherosclerosis of autologous bypass g*06/15/2022 Eczema of lower leg [L30.9] 06/15/2022 Folliculitis [L73.9] 06/15/2022 Hematuria [R31.9] 10/13/2021 History of myocardial infarction [I25.2] 04/29/2017 Hypercholesterolemia [E78.00] 04/29/2017 Mass of urinary bladder [N32.89] 10/13/2021 Osteoarthritis [M19.90] 06/15/2022 Right flank pain [R10.9] 10/05/2021 Seborrheic keratosis [L82.1] 06/15/2022 Status post coronary artery bypass graft [Z95.1]05/23/2018 Thrombocytopenia (HCC) [D69.6] 06/04/2019 Tingling sensation [R20.2] 06/04/2019 Encounter Status:Closed by KAREN LUNA on 09/11/24 TOSHIA Observed: 09/09/2024 12:00 AM Status: COMPLETED Source: [facility] Telephone (CARMOB) BASHIR OROPEZA ([id number]) 1950 Date Time Provider Department 09/09/24 ALLEN DOTY During your visit today, we recorded the following information about you: Kevin [employer] 09/09/2024 3:48 PM Signed Received and scanned BP Diary into chart Allen Doty MD 09/09/2024 5:48 PM Signed 21 out of 23 readings were optimal using a benchmark of < 130/80 (with one systolic reading of < 100; that reading was 93/56, and the pt did report feeling dizzy). The pt also reported being dizzy with a BP of 101/65. The diary started on 07/22/24, and ended on 08/30/24. He made a notation on 08/14/24 that he stopped medicine. I do not know if this meant he stopped all of his medications at that time, and I don't know if that means he held the medication on that day, or, if he literally stopped something, and did not resume the medication after that time. There were days that he reported feeling good, more so after her reported stopped medicine. As you know, this patient was recently diagnosed with bladder cancer, and I believe this has been a struggle for him. Before doing anything else, I need to know what medicine he stopped? If he stopped something, and never resumed it, then that will definitely alter my recommendations. I was definitely planning on cutting back on his medications, but it sounds like he may have already done that. Please investigate. Lilian Duarte RN 09/10/2024 9:24 AM Signed I reviewed the blood pressure diary with the patient. He weaned him off isosorbide. At the last visit he decreased the lisinopril to 10 mg a day. He does not know what medicine that he stopped on August 14, 2024. It may have been the isosorbide. He remains on the metoprolol. Allen Doty MD 09/10/2024 9:36 AM Signed If he is already feeling better after the prior adjustments, then I would make no additional changes at this time. If he is still experiencing dizzy spells, I would plan on cutting his Lisinopril back to 5mg daily (which would require a new prescription). Lilian Duarte RN 09/10/2024 9:47 AM Signed I spoke to the patient. He is not having lightheaded spells. He will stay on the current medicines. He will call if he has lightheaded spells and/or hypotension. Allergies As of Date: 09/09/2024 Noted Allergy Reaction PREDNISONE 02/08/2022 9 - Itching Comments: Flushed red TAMSULOSIN 06/19/2022 9 - Itching Date Reviewed: 07/21/2024 Reviewed by: Allen Doty MD - Fully Assessed Reason for Visit: Blood Pressure [15] [facility] - Other [3602] Cmt: BP diary results Results [95] Cmt: Update on BP results Prescriptions as of 09/10/2024 - lisinopril (ZESTRIL) 20 mg tablet Take 0.5 tablets by mouth once daily. - atorvastatin (LIPITOR) 80 mg tablet Take 1 tablet by mouth once daily. - ezetimibe (ZETIA) 10 mg tablet Take 1 tablet by mouth once daily. - metoprolol succinate ER (TOPROL XL) 25 mg 24 hr tablet Take 1 tablet by mouth two times a day. - pantoprazole DR (PROTONIX) 40 mg tablet Take 1 tablet by mouth once daily. - dapagliflozin propanediol (FARXIGA) 10 mg tablet Take 1 tablet by mouth daily with breakfast. - ticagrelor (BRILINTA) 90 mg tablet Take 1 tablet by mouth two times a day. - nitroglycerin sublingual (NITROQUICK) 0.4 mg SL tablet Dissolve 1 tablet under the tongue every 5 minutes as needed for chest pain. - acetaminophen 325 mg cap Take by mouth as needed. - aspirin 81 mg cap Take 81 mg by mouth once daily. Stopped 02/07/22 on own, never heard from Dr. Doty Problem List As Of Date 09/09/2024 Noted Resolved Obesity, Class I, BMI 30-34.9 [E66.811] 02/13/2022 HTN (hypertension) [I10] 02/14/2022 WI (myocardial infarction) (HCC) [I21.9] 02/14/2022 CAD (coronary artery disease) [I25.10] 02/14/2022 Gastroesophageal reflux disease [K21.9] 02/14/2022 Carpal tunnel syndrome [G56.00] 10/05/2021 Cataract of both eyes [H26.9] 06/15/2022 Chronic systolic heart failure (HCC) [I50.22] 06/04/2019 Closed fracture of phalanx of toe [S92.919A] 06/15/2022 Coronary atherosclerosis of autologous bypass g*06/15/2022 Eczema of lower leg [L30.9] 06/15/2022 Folliculitis [L73.9] 06/15/2022 Hematuria [R31.9] 10/13/2021 History of myocardial infarction [I25.2] 04/29/2017 Hypercholesterolemia [E78.00] 04/29/2017 Mass of urinary bladder [N32.89] 10/13/2021 Osteoarthritis [M19.90] 06/15/2022 Right flank pain [R10.9] 10/05/2021 Seborrheic keratosis [L82.1] 06/15/2022 Status post coronary artery bypass graft [Z95.1]05/23/2018 Thrombocytopenia (HCC) [D69.6] 06/04/2019 Tingling sensation [R20.2] 06/04/2019 Encounter Status:Closed by LILIAN GÓMEZ on 09/10/24 NM CARDIAC PERF STRESS/EXERCISE Observed: 09/02/2024 1:48 PM Status: F Source: [facility] * * *Final Report* * * DATE OF EXAM: Sep 02 2024 1:48PM RHN 0004 - NM CARDIAC PERF STRESS/EXERCISE / PROCEDURE REASON: multiple diagnoses * * * * Physician Interpretation * * * * Stress Air Marshal Report: [facility] Date of service: 09/02/2024 11:41:39 AM Supervising physician: Sravani Parish MD PATIENT: Name: BASHIR OROPEZA Age: 74 years Gender: M The supervising physician was in the department and immediately available. * * * Final * * * PATIENT: Name: BASHIR OROPEZA Age: 74 years Gender: M CONCLUSIONS: 1. SPECT Perfusion Study: Abnormal. 2. No evidence of scarred myocardium. 3. There is mild (<10%) ischemia in the territory of the RCA. 4. Left ventricle is normal in size. The left ventricle systolic function is mildly decreased. Gated Stress FBP Gated Rest FBP LVEF % 56 46 Prior Study Comparison No prior nuclear cardiology exam available for comparison. Nuclear Med Report:1-Day Gated SPECT Myocardial Perfusion with Exercise Stress: Myocardial perfusion imaging was performed at rest 30 to 60 minutes following the IV injection of the radiotracer. One minute prior to peak exercise, the patient was injected IV with the radiotracer. Gated post stress tomographic imaging was performed 10 to 20 minutes later. See administered radiotracer and doses below. [facility] Date of service: 09/02/2024 11:41:39 AM Ordering Physician: ALLEN DOTY. Requesting Physician: Indication: Assessment for suspected CAD Interpreting physician: Sravani Parish MD Previous Cardiovascular Interventions: CABG PCI Height: 177.80 cm BSA: 2.27 m? Weight: 104.33 kg BMI: 33.0 kg/m? Imaging Protocol Limitation Reason G.I. uptake and Patient motion. Exam Type: Rest Stress Radiopharm: Tc-99m Tetrofosmin Tc-99m Tetrofosmin Dosage(mCi): 12.5 36.0 Atten Correction: not performed not performed Stress Agent: Treadmill Resting Blood Press: 123/80 mmHg Image Quality The overall study imaging quality was deemed to be good. The following technical issues were noted: G.I. uptake and Patient motion. FINDINGS: Stress FBP Gated Stress FBP Gated Rest FBP LVEF: 56 % 46 % ED Volume: 96 ml 87 ml ES Volume: 42 ml 47 ml TID: 1.02 Perfusion Findings Stress FBP - Summed Score=3 There is a mild perfusion defect in the inferior wall and basal inferolateral segment. All remaining scored segments show normal perfusion. Rest FBP - Summed Score=0 All segments demonstrate normal perfusion. Stress FBP Rest FBP Summed Score=3 Summed Score=0 LEFT VENTRICLE The left ventricle is normal in size. Left ventricular systolic function is mildly decreased. Right Ventricle The right ventricle is unseen or not interrogated. Stress Test Findings: There is no evidence of scarring. The left ventricular cavity size is unchanged with stress. * * * Final * * * Stress ECG Report: [facility] Date of service: 09/02/2024 11:41:39 AM Ordering physician: ALLEN DOTY design specialist: Farida Castle Interpreting physician: Sravani Parish MD Patient name: BASHIR OROPEZA Age: 74 years Gender: M Height: 177.80 cm BSA: 2.27 m? Weight: 104.33 kg BMI: 33.0 kg/m? Indication: Shortness of breath Stress ECG Conclusion: Conclusion: Normal with exception due to low functional capacity Comments: This is a EKG portion of Lexiscan induced myocardial perfusion imaging stress test for the evaluation of coronary artery disease. Total exercise time 3 minutes 102% of maximum predicted heart rate achieved Maximum workload 4.6 METS Reason for termination fatigue and shortness of breath Baseline blood pressure 138/97 and peak blood pressure 140/80 indicating relatively flat blood pressure response Baseline EKG sinus tachycardia, nondiagnostic Q waves in the inferior leads with occasional PVC. During the Bob protocol patient did not have any acute ST changes that are suggestive of myocardial ischemia. Occasional PVCs noted during the recovery. Stress ECG Summary: The patient's resting heart rate was 80 bpm and blood pressure was 123/80 mmHg. The patient exercised according to the Bob protocol. The estimated end-exercise MET level achieved using the FRIEND equation * * * was 4.2, which is in the bottom 10th percentile for age and sex. The estimated end-exercise MET level achieved using the previous ACSM equation was 4.6. The test was terminated due to general fatigue and the total exercise time was 3 minutes and 0 seconds. Other symptoms during the test included SOB. The maximum heart rate was 151 bpm, which is 102% of the predicted heart rate for age. Peak blood pressure was 140/80 mmHg. The double product achieved was 350[address]. Previous cardiovascular interventions: CABG PCI Medications: Last Used BABY ASPIRIN ATORVASTATIN FARXIGA ZETIA LISINOPRIL METOPROLOL NITROGLYCERIN PANTOPRAZOLE BRILINTA Resting ECG: Sinus Arrhythmia Symptoms at rest: No symptoms Exercise Protocol: Bob Stress Exercise Table: +-----+ +--------+ +---+---+---+----+ Stage Speed (MPH) Grade(%) Time (min) HR SYS SHELLI METS +-----+ +--------+ +---+---+---+----+ 1 1.7 10.0 3.0 151 140 80 4.2 +-----+ +--------+ +---+---+---+----+ +-----+ +---------+ +---+---+---+----+ Speed (MPH) Grade (%) Time (min) HR SYS SHELLI METS +-----+ +---------+ +---+---+---+----+ Final 1.7 10.0 3.00 151 140 80 4.2 +-----+ +---------+ +---+---+---+----+ Recovery Table: +------+---+---+---+ Stage HR SYS SHELLI +------+---+---+---+ 1 144 124 78 +------+---+---+---+ 2 120 +------+---+---+---+ 3 108 118 78 +------+---+---+---+ Stress Observations: Resting HR: 80 bpm Peak HR: 151 bpm (102% MPHR) Resting BP: 123 / 80 mmHg Peak BP: 140 / 80 mmHg Total exercise time: 3 minutes 0 seconds METS achieved: 4.2 Chronotropic response index (CRI): 1.05 Heart rate recovery (HRR): 7 bpm Rate Pressure Product (RPP): 60163 Stress Exercise Observations: Reason for test termination: general fatigue and Symptoms during test: Other symptoms during the test included SOB Metabolic Exercise Data Variable: Observed value [Expected Range] HGI: 1.1 [>1.06 bpm/mmHg] * * * IMPORTANT NOTE REGARDING ESTIMATED MET VALUES: Effective 03/13/2020, the reference equation for determining estimated MET values for [facility] stress tests changed. Comparison of test results before and after that date may show a change in estimated MET values for peak/max exercise despite a test duration that is similar in length. The validity of the new FRIEND equation for exercise METS is endorsed by the [place] [employer]. Pauly P, Miryam LA, Shani R, Geoff J, [place]. New Generalized Equation for Predicting Maximal Oxygen Uptake (from the Fitness Registry and the Importance of Exercise National Database). The [place] Journal of Cardiology. 2017;120(4):688-692). * * * Final * * * RP Assistant Federal Public Defender: JOSE Transcribe Date/Time: Sep 02 2024 11:41A Dictated by : SRAVANI PARISH MD This examination was interpreted and the report reviewed and electronically signed by: SRAVANI PARISH MD on Sep 02 2024 2:58PM EST [id number] PROGRESS Observed: 09/02/2024 12:26 PM Status: COMPLETED Source: [facility] HNO ID: [id number] Author: MIKY SOLORIO RT(R) Service: ? Author Type: Technologist Type: Progress Notes Filed: 09/02/2024 12:27 Note Text: RADIOLOGY SERVICE PROGRESS NOTE SERVICE DATE: 09/02/2024 SERVICE TIME: 12:26 PM PATIENT IDENTITY VERIFICATION COMPLETED USING TWO (2) STANDARD IDENTIFIERS: Name and Date of confirmed by patient verbally FALL SCREENING: Has the patient had 2 falls in the last year or 1 fall with injury or currently using an Ambulatory Assistive Device (Walker, Cane, Wheelchair, Crutches, etc.)? No PATIENT GENDER DATA: .male : No ALLERGIES: Reviewed and unchanged MEDICATIONS REVIEWED: Not applicable PATIENT RELEVANT IMPLANT DATA REVIEWED: Not Applicable PATIENT PRESENTS WITH AN IMPLANTABLE OR ATTACHED CHEESE SPECIALIST: No CREATININE: Creatinine Date Value Ref Range Status 07/14/2024 0.96 0.50 - 1.40 mg/dL Final Comment: Patients receiving either N-Acetylcysteine (NAC) or Metamizole prior to venipuncture, may have falsely depressed results. 01/09/2023 1.15 0.73 - 1.22 mg/dL Final 06/22/2022 1.06 0.50 - 1.40 mg/dL Final Comment: Patients receiving either N-Acetylcysteine (NAC) or Metamizole prior to venipuncture, may have falsely depressed results. Estimated Glomerular Filtration Rate Date Value Ref Range Status 07/14/2024 85 >=60 mL/min/1.73m? Final Comment: Estimated Glomerular Filtration Rate (eGFR) is calculated using the 2020 CKD-EPI creatinine equation. This equation utilizes serum creatinine, sex, and age as parameters. The creatinine assay has traceable calibration to isotope dilution-mass spectrometry. Refer to KDIGO guidelines for clinical interpretation. In patients with unstable renal function, e.g. those with acute kidney injury, the eGFR may not accurately reflect actual GFR. eGFR- Date Value Ref Range Status 07/12/2021 Greater than 60 Final P.O.C.T. RESULTS: N/A September 02, [address] PERFORMED: No IV SITE: Ambulatory: A peripheral IV was started in the Left hand with a Angio cath: 22 gauge. POST EXAM PIV STATUS: Discontinued PROCEDURE TYPE: NM Stress: 12.5 mCi [id number] was administered IV for Rest Imaging at 1050 by LRG. 36.0 mCi [id number] was administered IV for Stress Imaging at 1230 by DEM. ADMINISTRATION TIME: 1300 PATIENT DISCHARGED TO: Ambulatory patient, left NM department area. Is this a therapy: No A Diagnostic radioactive procedure has taken place, with no further precautions necessary other than routine body substance precautions. More information regarding radiation safety can be found using this link: [email or web address] SIGNATURE: RT Carlos(Nathaniel) PATIENT NAME: Bashir Oropeza DATE: September 02, 2024 TIME: 12:26 PM PAGER/CONTACT #: [id number] Observed: 09/02/2024 12:00 AM Status: COMPLETED Source: [facility] Telephone (CARMOB) BASHIR OROPEZA ([id number]) 1950 M Date Time Provider Department 09/02/24 ALLEN DOTY During your visit today, we recorded the following information about you: Allen Doty MD 09/02/2024 3:19 PM Signed The pt was only able to exercise for 3min. No chest pain. He demonstrated sinus tachycardia at baseline. He did achieve an adequate HR response. No ischemic ECG changes. Images showed: CONCLUSIONS: 1. SPECT Perfusion Study: Abnormal. 2. No evidence of scarred myocardium. 3. There is mild (<10%) ischemia in the territory of the RCA. 4. Left ventricle is normal in size. The left ventricle systolic function is mildly decreased. Gated Stress FBP Gated Rest FBP LVEF % 56 46 On the pt's most recent prior stress, he was able to exercise for 6 minutes, and he developed chest pain during the stress test. His images showed a prior inferior infarct, with no ischemia, and an LVEF of 40%. This was followed by a Cath that showed two patent grafts and one occluded graft (SVG to an OM branch). He was continued on medical therapy. Given the fact that the pt had called in on 08/19/24 with complaints of worsening fatigue and exertional dyspnea, and his very limited exercise tolerance in addition to some evidence of ischemia, I would recommend a follow up Cath if he is agreeable. Lilian Duarte RN 09/02/2024 4:16 PM Signed I reviewed the stress test with the patient. He is agreeable to the heart cath. Please do the order. The patient will need an updated HANDP. Allen Doty MD 09/02/2024 4:51 PM Signed I have provided an order for the Cardiac Cath. Allen Mello MD 09/02/2024 4:51 PM Signed Addended by: ALLEN DOTY on: 09/02/2024 04:51 PM Modules accepted: Orders Neeraj Bourgeois 09/03/2024 10:58 AM Signed Cath is October [address] Katz @ 8:00AM. HANDP September @ 9AM yuridia Rivera NP. Lilian Rosales RN 09/03/2024 11:55 AM Signed I reviewed the date for the updated HANDP. I also reviewed the date for the heart cath with Dr. Katz. I reviewed precath instructions with the patient. The patient demonstrates understanding. 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 - atorvastatin (LIPITOR) 80 mg tablet Take 1 tablet by mouth once daily. - ezetimibe (ZETIA) 10 mg tablet Take 1 tablet by mouth once daily. - metoprolol succinate ER (TOPROL XL) 25 mg 24 hr tablet Take 1 tablet by mouth two times a day. - pantoprazole DR (PROTONIX) 40 mg tablet Take 1 tablet by mouth once daily. - dapagliflozin propanediol (FARXIGA) 10 mg tablet Take 1 tablet by mouth daily with breakfast. - ticagrelor (BRILINTA) 90 mg tablet Take 1 tablet by mouth two times a day. - nitroglycerin sublingual (NITROQUICK) 0.4 mg SL tablet Dissolve 1 tablet under the tongue every 5 minutes as needed for chest pain. - acetaminophen 325 mg cap Take by mouth as needed. - aspirin 81 mg cap Take 81 mg by mouth once daily. Stopped 02/07/22 on own, never heard from Dr. Doty Problem List As Of Date 09/02/2024 Noted Resolved Obesity, Class I, BMI 30-34.9 [E66.811] 02/13/2022 HTN (hypertension) [I10] 02/14/2022 WI (myocardial infarction) (HCC) [I21.9] 02/14/2022 CAD (coronary artery disease) [I25.10] 02/14/2022 Gastroesophageal reflux disease [K21.9] 02/14/2022 Carpal tunnel syndrome [G56.00] 10/05/2021 Cataract of both eyes [H26.9] 06/15/2022 Chronic systolic heart failure (HCC) [I50.22] 06/04/2019 Closed fracture of phalanx of toe [S92.919A] 06/15/2022 Coronary atherosclerosis of autologous bypass g*06/15/2022 Eczema of lower leg [L30.9] 06/15/2022 Folliculitis [L73.9] 06/15/2022 Hematuria [R31.9] 10/13/2021 History of myocardial infarction [I25.2] 04/29/2017 Hypercholesterolemia [E78.00] 04/29/2017 Mass of urinary bladder [N32.89] 10/13/2021 Osteoarthritis [M19.90] 06/15/2022 Right flank pain [R10.9] 10/05/2021 Seborrheic keratosis [L82.1] 06/15/2022 Status post coronary artery bypass graft [Z95.1]05/23/2018 Thrombocytopenia (HCC) [D69.6] 06/04/2019 Tingling sensation [R20.2] 06/04/2019 Encounter Status:Closed by ALLEN DOTY on 09/02/24 TOSHIA Observed: 08/19/2024 12:00 AM Status: COMPLETED Source: [facility] Telephone (CARMOB) BASHIR OROPEZA ([id number]) 1950 M Date Time Provider Department 08/19/24 ALLEN DOTY During your visit today, we recorded the following information about you: Lilian Gómez RN 08/19/2024 1:11 PM Signed The patient was called and he has recently been experiencing fatigue with little exertional activity as well as exertional dyspnea. He is wanting to know if he needs a stress test. Allen Doty MD 08/19/2024 2:06 PM Signed I have provided an order for a stress test. Please schedule. It is interesting that he really didn't express any cardiac complaints at his office visit on 07/21/24, although it did appear that his recently diagnosed bladder cancer had taken quite a toll on him. In retrospect, as a diabetic pt whose last stress test was in 2021, I am surprised that we did not offer a follow up stress test when we saw him last month. Lilian Duarte RN 08/19/2024 2:18 PM Signed Pt advised. Please arrange for the stress test soon, pt is having symptoms. I gave him pre-stress test instructions. Neeraj Bourgeois 08/19/2024 2:27 PM Signed Priinted I will schedule. Almita Lee MA 08/24/2024 11:12 AM Signed Called and spoke with patient Stress test scheduled for 02/13/2025 at 10:45 AM [facility] cardiac diagnostics Ordering provider Dr. Doty Instructions given Patient thanked me and the call was completed Almita Moe MA August 24, 2024 11:11 AM Allergies As of Date: 08/19/2024 Noted Allergy Reaction PREDNISONE 02/08/2022 9 - Itching Comments: Flushed red TAMSULOSIN 06/19/2022 9 - Itching Date Reviewed: 07/21/2024 Reviewed by: Allen Doty MD - Fully Assessed Reason for Visit: Patient Update [1234] Cmt: Stress test scheduled for 02/13/2025 at 10:45 AM / Ordering provider Dr. 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 - atorvastatin (LIPITOR) 80 mg tablet Take 1 tablet by mouth once daily. - ezetimibe (ZETIA) 10 mg tablet Take 1 tablet by mouth once daily. - metoprolol succinate ER (TOPROL XL) 25 mg 24 hr tablet Take 1 tablet by mouth two times a day. - pantoprazole DR (PROTONIX) 40 mg tablet Take 1 tablet by mouth once daily. - dapagliflozin propanediol (FARXIGA) 10 mg tablet Take 1 tablet by mouth daily with breakfast. - ticagrelor (BRILINTA) 90 mg tablet Take 1 tablet by mouth two times a day. - nitroglycerin sublingual (NITROQUICK) 0.4 mg SL tablet Dissolve 1 tablet under the tongue every 5 minutes as needed for chest pain. - acetaminophen 325 mg cap Take by mouth as needed. - aspirin 81 mg cap Take 81 mg by mouth once daily. Stopped 02/07/22 on own, never heard from Dr. Doty Problem List As Of Date 08/19/2024 Noted Resolved Obesity, Class I, BMI 30-34.9 [E66.811] 02/13/2022 HTN (hypertension) [I10] 02/14/2022 WI (myocardial infarction) (HCC) [I21.9] 02/14/2022 CAD (coronary artery disease) [I25.10] 02/14/2022 Gastroesophageal reflux disease [K21.9] 02/14/2022 Carpal tunnel syndrome [G56.00] 10/05/2021 Cataract of both eyes [H26.9] 06/15/2022 Chronic systolic heart failure (HCC) [I50.22] 06/04/2019 Closed fracture of phalanx of toe [S92.919A] 06/15/2022 Coronary atherosclerosis of autologous bypass g*06/15/2022 Eczema of lower leg [L30.9] 06/15/2022 Folliculitis [L73.9] 06/15/2022 Hematuria [R31.9] 10/13/2021 History of myocardial infarction [I25.2] 04/29/2017 Hypercholesterolemia [E78.00] 04/29/2017 Mass of urinary bladder [N32.89] 10/13/2021 Osteoarthritis [M19.90] 06/15/2022 Right flank pain [R10.9] 10/05/2021 Seborrheic keratosis [L82.1] 06/15/2022 Status post coronary artery bypass graft [Z95.1]05/23/2018 Thrombocytopenia (HCC) [D69.6] 06/04/2019 Tingling sensation [R20.2] 06/04/2019 Encounter Status:Closed by NEERAJ BOURGEOIS Ranjit on 08/19/24 PROGRESS Observed: 07/21/2024 2:30 PM Status: COMPLETED Source: [facility] HNO ID: [id number] Author: ALLEN DOTY MD Service: ? Author Type: Physician Type: Progress Notes Filed: 07/25/2024 10:37 Note Text: [facility] [place] [facility] OUTPATIENT VISIT DATE July 21, 2024 OUTPATIENT VISIT TYPE ESTABLISHED PATIENT PRIMARY CARE PHYSICIAN: Anthony Oropeza CNP HISTORY OF PRESENT ILLNESS: Mr. Oropeza is a 74 year old male with a history of CAD, status post previous stenting to the RCA x3 stents in 2014, status post CABG in 2014, s/p VERITO stent to the OM of the circumflex artery 05/24/18, and PCI/VERITO to the inferior ramus branch of the first OM 09/08/18, intermediate responder to Plavix, type 2 diabetes mellitus, hypertension, hyperlipidemia, GERD, and arthritis. The patient underwent cardiac catheterization September 05, 2018 following the development of chest pain. This revealed coronary artery disease; triple-vessel disease, status post CABG with occluded SVG to the OM, LVEF of 40 to 45% with mild 1+ MR. This was followed by PCI/stent with a 2.25 stent to the inferior ramus of the first obtuse marginal branch. The patient was evaluated in the ER in May of 2021 for shortness of breath. A follow-up stress test was performed 07/05/21. The patient exercised for 6 minutes on the treadmill and he was limited by dyspnea. He did develop 8/10 chest pain at peak exercise, which improved during the recovery phase. There were no ischemic EKG changes. His images showed evidence of a prior moderate sized inferior infarct with no significant ischemia and an LVEF of 40%, extremely similar to the imaging results on his last study. Given the fact that he did develop chest pain with exercise, a follow-up cath was performed on 07/12/21. There were no significant changes when comparing this study to the one following his PCI in 2019. The patient's previous stent in the origin of the inferior ramus of the patient's 1st OM branch was widely patent. Given the patient's continued complaints of chest pain, he was started on Imdur. The patient returns for cardiac follow-up. The patient underwent an echocardiogram 07/10/2022 following shortness of breath. This revealed preserved left ventricular systolic function. The patient reports he recently was diagnosed with bladder cancer. The patient underwent transurethral resection of multiple large bladder tumors greater than 5 cm in size and instillation of Mitomycin on 07/15/2024. From a cardiac standpoint, he denies chest pain, palpitations, dyspnea or syncope. The patient did have an episode yesterday in which he felt woozy/lightheaded that persisted for 10 minutes. His blood pressure yesterday was 100mmHg systolic. He has not been eating as much as usual recently, however, he has not lost any weight. He has been increasing his fluid intake following his bladder surgery. He does not smoke or drink alcohol. He does some walking but really does not exercise. The patient declined to get the COVID-19 vaccination. PAST CARDIAC HISTORY: CAD-History of 3 stents RCA and CABG 2014. Status post VERITO stent with a 3.0 synergy to the first obtuse marginal and to the circumflex artery April 2018. s/p PCI/drug-eluting stent to the iinferior ramus branch of the first obtuse marginal branch reducing the initial 70-80% stenosis and leaving less than 10% residual stenosis 09/08/18. Intermediate responder to Plavix. Systolic CHF PAST MEDICAL HISTORY Diagnosis Date Arthritis all over CAD (coronary artery disease) Cancer (HCC) 11/2021 bladder ca- tumor removed Coronary artery disease 2014 stents- Dr. Doty Esophageal reflux controlled with medication Hx of cystoscopy recently- Dr. Joseph Hypertension bp controlled with medication Mixed hyperlipidemia Past heart attack either [id number] Systolic CHF (HCC) Type 2 diabetes mellitus (HCC) PAST SURGICAL HISTORY Procedure Laterality Date ANES TRANSURETHRAL RESECTION OF BLADDER TUMOR 2021 CABG (4) VEIN GRAFTS AND ARTERIAL GRAFT(S) 09/2014 CYSTOSCOPY SOCIAL HISTORY Social History Tobacco Use Smoking status: Former Current packs/day: 0.00 Average packs/day: 2.0 packs/day for 30.0 years (60.0 ttl pk-yrs) Types: Cigarettes Start date: 1984 Quit date: 2015 Years since quittin.1 Smokeless tobacco: Never Substance Use Topics Alcohol use: Not Currently Drug use: Never History reviewed. No pertinent family history. ALLERGIES Allergen Reactions Prednisone Itching Flushed red Tamsulosin Itching MEDICATIONS: atorvastatin (LIPITOR) 80 mg tablet Take 1 tablet by mouth once daily. ezetimibe (ZETIA) 10 mg tablet Take 1 tablet by mouth once daily. isosorbide mononitrate ER (IMDUR) 60 mg 24 hr tablet Take 1 tablet by mouth once daily. lisinopril (ZESTRIL) 20 mg tablet Take 1 tablet by mouth once daily. metoprolol succinate ER (TOPROL XL) 25 mg 24 hr tablet Take 1 tablet by mouth two times a day. pantoprazole DR (PROTONIX) 40 mg tablet Take 1 tablet by mouth once daily. dapagliflozin propanediol (FARXIGA) 10 mg tablet Take 1 tablet by mouth daily with breakfast. ticagrelor (BRILINTA) 90 mg tablet Take 1 tablet by mouth two times a day. nitroglycerin sublingual (NITROQUICK) 0.4 mg SL tablet Dissolve 1 tablet under the tongue every 5 minutes as needed for chest pain. acetaminophen 325 mg cap Take by mouth as needed. aspirin 81 mg cap Take 81 mg by mouth once daily. Stopped 02/07/22 on own, never heard from Dr. Doty REVIEW OF SYSTEMS: Review of Systems Constitutional: Positive for fatigue. Musculoskeletal: Positive for arthralgias and gait problem. Stiffness Allergic/Immunologic: Seasonal allergies Hematological: Bruises/bleeds easily. All other systems reviewed and are negative. PHYSICAL EXAMINATION: BP 80/51 (BP Site: Left Arm, BP Position: Sitting) Pulse 96 Ht 177.8 cm (5' 10) Wt 104.6 kg (230 lb 9.6 oz) SpO2 95% BMI 33.09 kg/m? Physical Exam Constitutional: Appearance: Normal appearance. HENT: Head: Normocephalic and atraumatic. Nose: Nose normal. Cardiovascular: Rate and Rhythm: Normal rate and regular rhythm. Pulses: Normal pulses. Heart sounds: Normal heart sounds, S1 normal and S2 normal. Pulmonary: Effort: Pulmonary effort is normal. Breath sounds: Normal breath sounds. Abdominal: General: Bowel sounds are normal. Palpations: Abdomen is soft. Musculoskeletal: General: Normal range of motion. Cervical back: Normal range of motion and neck supple. Right lower leg: No edema. Left lower leg: No edema. Skin: General: Skin is warm and dry. Neurological: Mental Status: He is alert and oriented to person, place, and time. Mental status is at baseline. CARDIOVASCULAR MEDICINE TESTING: Exercise Stress Test Report Findings: 07/05/21 FINAL IMPRESSION: 1. Negative adequate exercise treadmill test by ECG criteria. 2. Fair exercise tolerance. 3. The patient did complain of the development of up to 8/10 retrosternal chest discomfort during the second stage of exercise which gradually improved over the course of the monitored recovery phase. 4. Infrequent isolated premature ventricular complexes were noted during exercise and the recovery phase; no complex ventricular arrhythmias were observed. 5. Please refer to the interpretation of the Sestamibi images for a complete report. Nuclear Exercise Stress Test Report Findings: 07/05/21 IMPRESSION: 1. Moderate area infarction in the inferior wall without significant residual myocardial ischemia 2. The ejection fraction is 40% with anterior and inferior wall hypokinesis. 3. No EKG changes diagnostic of Myocardial Ischemia with Bob Protocol achieving a total workload of 7 METS with chest discomfort. 8 out of 10 chest pain with exercise. Cardiac Catheterization Report Findings: 07/12/21 Impression: 1. Coronary artery disease; double vessel disease. 2. Status post CABG x3 grafts with 2 patent grafts and one occluded graft. The SVG to the first OM is known occluded. 3. Mild left ventricular systolic dysfunction with an LVEF of 40 to 45% with inferior/inferoapical wall hypokinesis. 4. Trivial mitral regurgitation. Recommendations: 1. Continue medical therapy. 2. We will add isosorbide mononitrate 60 mg daily (patient to take a half a tablet for the first 6 days). If the patient continues to have chest pain we will consider addition of Ranexa. Comments: 09/05/18 PCI/stent with a 2.25 x 8 synergy stent/drug-eluting stent to the 70-80% stenosis in the origin of a medium size inferior ramus branch of the first obtuse marginal branch reducing the initial 70-80% stenosis and leaving less than 10% residual stenosis. Echocardiogram Date 07/10/2022 CONCLUSIONS: - Exam indication: Shortness of Breath - The left ventricle is normal in size. There is moderate concentric left ventricular hypertrophy. Left ventricular systolic function is normal. EF = 55 ? 5% (2D biplane) Definity contrast used for endocardial border detection. Normal left ventricular diastolic function. possible mild distal septal hypokinesis noted - The right ventricle is normal in size. Right ventricular systolic function is normal. no significant valvular abnormalities - The patient has not had a prior CC echocardiographic exam for comparison. Laboratories 07/14/2024 hemoglobin A1c 7.1, albumin 3.5, AST 23, ALT 26, cholesterol 112, triglycerides 91, HDL 37, LDL 57, sodium 141, potassium 4.6, chloride 110, bicarb 28, Leukos 153, BUN 20, creatinine 0.96, proBNP T-262, WBCs 8.54, hemoglobin 12.4, hematocrit 39.4, platelets 159. EKG today reveals normal sinus rhythm with occasional premature ventricular complexes. IMPRESSION AND RECOMMENDATIONS: Mr. Oropeza is a 74 year old male with history of CAD, status post previous stenting to the RCA x3 stents in 2014, status post CABG in 2014, s/p VERITO stent to the OM of the circumflex artery 05/24/18, and PCI/VERITO to the inferior ramus branch of the first OM 09/08/18. 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 CAD. History of 3 stents to the right coronary 2015 and coronary bypass graft surgery in 2014, status post 3.0 drug-eluting stent to the first OM of the circumflex May 24, 2018, and PCI/VERITO to the inferior ramus branch of the first OM 09/08/18. The patient's most recent cardiac catheterization was performed on 07/12/21 following exertional CP. There were no significant changes when comparing this study to the one following his PCI in 2019. The patient's previous stent in the origin of the inferior ramus of the patient's 1st OM branch was widely patent. Given the patient's continuing complaints of chest pain, he was started on Imdur. The patient reports that he feels well on Imdur therapy. Given his history of multiple interventions, he has been continued on dual antiplatelet therapy with aspirin and Brilinta. Currently the patient is off aspirin and Brilinta following his urological procedure. We will reach out to his urologist Dr. Raman, to see if he can resume his aspirin, Brilinta and Farxiga. He is also maintained on ACEi, beta-grazyna, and statin therapy. The patient has been encouraged to participate in regular exercise. The patient is scheduled to return for follow-up in 8 months. Prior to his next appointment full labs will be obtained. Hypotension. The patient reports an episode of feeling dizzy and woozy yesterday with systolic blood pressure 101. The patient's manual blood pressure today is 98/60. Patient has been advised to decrease lisinopril to 10 mg daily. The patient is to decrease isosorbide mononitrate to 30 mg daily for 6 days. If the patient has no angina he is to stop the isosorbide mononitrate. The patient is to submit a blood pressure diary in 1 month. Chronic systolic CHF. The patient's most recent EF by Left ventriculography during cardiac catheterization 07/12/2021 was 40 to 45% with inferior/inferoapical wall hypokinesis and trivial mitral regurgitation. The echocardiogram of 07/10/2022 revealed an EF of 55?5%. The patient is compensated on today's exam. The pro BNPT on 07/14/2024 was 262. The patient is currently off SGLT-2 inhibitor as advised by his recent bladder surgery. We will reach out to his urologist to see if the patient may resume the SGLT-2 inhibitor. Hypertension. He will follow a no added salt diet. As above, the patient is currently experiencing borderline low blood pressure readings, as noted above. We have advised him to decrease his Lisinopril to 10mg daily, and we are weaning him off of Isosorbide Mononitrate. Hyperlipidemia. Our goal LDL is less than 55 with his history of CAD and diabetes mellitus. He is maintained on Lipitor 80 mg nightly and Zetia 10 mg daily. He will follow a low-fat, low-cholesterol diet. The LDL on 07/14/2024 was 57. The patient is close to goal. A fasting lipid profile and hepatic profile will be obtained prior to his next appointment. Type 2 diabetes mellitus. The patient had been on Farxiga 10 mg daily prior to his bladder surgery. We will check with his urologist if he can resume the Farxiga. The hemoglobin A1c on 07/14/2024 was 7.1. The patient is to follow a diabetic diet. Hemoglobin A1c will be obtained prior to his next appointment. Thrombocytopenia. The patient has a history of thrombocytopenia. On the patient's recent blood work of 07/14/2024 the platelet count was 159. CBC will be obtained prior to his next appointment. Bladder cancer. The patient is followed by Dr. Raman. The patient underwent transurethral resection of multiple large bladder tumors greater than 5 cm in size and instillation of Mitomycin on 07/15/2024. Allen Doty MD Scribe Attestation: By signing my name below, ILilian RN, attest that this documentation has been prepared under the direction and in the presence of Allen Doty MD. Electronically Signed: Lilian Gómez RN, Scribe. July 21, 2024 at 2:30 PM. Provider Attestation: IAllen MD personally performed the services described in this documentation. All medical record entries made by the scribe were at my direction and in my presence. I have reviewed the chart and discharge instructions (if applicable) and agree that the record reflects my personal performance and is accurate and complete. Electronically Signed: Allen Doty MD, July 25, 2024 CNOV Observed: 07/21/2024 2:30 PM Status: COMPLETED Source: [facility] Office Visit ([facility]) BASHIR OROPEZA ([id number]) 1950 M Date Time Provider Department 07/21/24 2:30 PM ALLEN DOTY During your visit today, we recorded the following information about you: Pulse Blood pressure Weight Height 96/minute 80/51 104.6 kg 1.778 m Lilian Gómez RN 07/21/2024 3:37 PM Addendum Participate in a regular exercise regimen of at least 30 to 45 minutes of exercise 4 to 5 days a week. Follow a low cholesterol, no added salt and diabetic diet. Continue current medical regimen. Decrease lisinopril to 10 mg daily. Decrease isosorbide to 30 mg daily for 6 days and if no chest pain then discontinue isosorbide. Call Dr. Raman about resuming medications. Return for follow up in 8 months. Bring a current list of you medications to your next appointment. Obtain fasting blood work 1 week prior to next appointment. Allen Doty MD 07/25/2024 10:37 AM Signed [facility] [place] [facility] OUTPATIENT VISIT DATE July 21, 2024 OUTPATIENT VISIT TYPE ESTABLISHED PATIENT PRIMARY CARE PHYSICIAN: Anthony Oropeza CNP HISTORY OF PRESENT ILLNESS: Mr. Oropeza is a 74 year old male with a history of CAD, status post previous stenting to the RCA x3 stents in 2014, status post CABG in 2014, s/p VERITO stent to the OM of the circumflex artery 05/24/18, and PCI/VERITO to the inferior ramus branch of the first OM 09/08/18, intermediate responder to Plavix, type 2 diabetes mellitus, hypertension, hyperlipidemia, GERD, and arthritis. The patient underwent cardiac catheterization September 05, 2018 following the development of chest pain. This revealed coronary artery disease; triple-vessel disease, status post CABG with occluded SVG to the OM, LVEF of 40 to 45% with mild 1+ MR. This was followed by PCI/stent with a 2.25 stent to the inferior ramus of the first obtuse marginal branch. The patient was evaluated in the ER in May of 2021 for shortness of breath. A follow-up stress test was performed 07/05/21. The patient exercised for 6 minutes on the treadmill and he was limited by dyspnea. He did develop 8/10 chest pain at peak exercise, which improved during the recovery phase. There were no ischemic EKG changes. His images showed evidence of a prior moderate sized inferior infarct with no significant ischemia and an LVEF of 40%, extremely similar to the imaging results on his last study. Given the fact that he did develop chest pain with exercise, a follow-up cath was performed on 07/12/21. There were no significant changes when comparing this study to the one following his PCI in 2019. The patient's previous stent in the origin of the inferior ramus of the patient's 1st OM branch was widely patent. Given the patient's continued complaints of chest pain, he was started on Imdur. The patient returns for cardiac follow-up. The patient underwent an echocardiogram 07/10/2022 following shortness of breath. This revealed preserved left ventricular systolic function. The patient reports he recently was diagnosed with bladder cancer. The patient underwent transurethral resection of multiple large bladder tumors greater than 5 cm in size and instillation of Mitomycin on 07/15/2024. From a cardiac standpoint, he denies chest pain, palpitations, dyspnea or syncope. The patient did have an episode yesterday in which he felt woozy/lightheaded that persisted for 10 minutes. His blood pressure yesterday was 100mmHg systolic. He has not been eating as much as usual recently, however, he has not lost any weight. He has been increasing his fluid intake following his bladder surgery. He does not smoke or drink alcohol. He does some walking but really does not exercise. The patient declined to get the COVID-19 vaccination. PAST CARDIAC HISTORY: CAD-History of 3 stents RCA and CABG 2014. Status post VERITO stent with a 3.0 synergy to the first obtuse marginal and to the circumflex artery April 2018. s/p PCI/drug-eluting stent to the iinferior ramus branch of the first obtuse marginal branch reducing the initial 70-80% stenosis and leaving less than 10% residual stenosis 09/08/18. Intermediate responder to Plavix. Systolic CHF PAST MEDICAL HISTORY Diagnosis Date Arthritis all over CAD (coronary artery disease) Cancer (HCC) 11/2021 bladder ca- tumor removed Coronary artery disease 2014 stents- Dr. Doty Esophageal reflux controlled with medication Hx of cystoscopy recently- Dr. Joseph Hypertension bp controlled with medication Mixed hyperlipidemia Past heart attack either [id number] Systolic CHF (HCC) Type 2 diabetes mellitus (HCC) PAST SURGICAL HISTORY Procedure Laterality Date ANES TRANSURETHRAL RESECTION OF BLADDER TUMOR 2021 CABG (4) VEIN GRAFTS AND ARTERIAL GRAFT(S) 09/2014 CYSTOSCOPY SOCIAL HISTORY Social History Tobacco Use Smoking status: Former Current packs/day: 0.00 Average packs/day: 2.0 packs/day for 30.0 years (60.0 ttl pk-yrs) Types: Cigarettes Start date: 1984 Quit date: 2014 Years since quittin.1 Smokeless tobacco: Never Substance Use Topics Alcohol use: Not Currently Drug use: Never History reviewed. No pertinent family history. ALLERGIES Allergen Reactions Prednisone Itching Flushed red Tamsulosin Itching MEDICATIONS: atorvastatin (LIPITOR) 80 mg tablet Take 1 tablet by mouth once daily. ezetimibe (ZETIA) 10 mg tablet Take 1 tablet by mouth once daily. isosorbide mononitrate ER (IMDUR) 60 mg 24 hr tablet Take 1 tablet by mouth once daily. lisinopril (ZESTRIL) 20 mg tablet Take 1 tablet by mouth once daily. metoprolol succinate ER (TOPROL XL) 25 mg 24 hr tablet Take 1 tablet by mouth two times a day. pantoprazole DR (PROTONIX) 40 mg tablet Take 1 tablet by mouth once daily. dapagliflozin propanediol (FARXIGA) 10 mg tablet Take 1 tablet by mouth daily with breakfast. ticagrelor (BRILINTA) 90 mg tablet Take 1 tablet by mouth two times a day. nitroglycerin sublingual (NITROQUICK) 0.4 mg SL tablet Dissolve 1 tablet under the tongue every 5 minutes as needed for chest pain. acetaminophen 325 mg cap Take by mouth as needed. aspirin 81 mg cap Take 81 mg by mouth once daily. Stopped 02/07/22 on own, never heard from Dr. Doty REVIEW OF SYSTEMS: Review of Systems Constitutional: Positive for fatigue. Musculoskeletal: Positive for arthralgias and gait problem. Stiffness Allergic/Immunologic: Seasonal allergies Hematological: Bruises/bleeds easily. All other systems reviewed and are negative. PHYSICAL EXAMINATION: BP 80/51 (BP Site: Left Arm, BP Position: Sitting) Pulse 96 Ht 177.8 cm (5' 10) Wt 104.6 kg (230 lb 9.6 oz) SpO2 95% BMI 33.09 kg/m? Physical Exam Constitutional: Appearance: Normal appearance. HENT: Head: Normocephalic and atraumatic. Nose: Nose normal. Cardiovascular: Rate and Rhythm: Normal rate and regular rhythm. Pulses: Normal pulses. Heart sounds: Normal heart sounds, S1 normal and S2 normal. Pulmonary: Effort: Pulmonary effort is normal. Breath sounds: Normal breath sounds. Abdominal: General: Bowel sounds are normal. Palpations: Abdomen is soft. Musculoskeletal: General: Normal range of motion. Cervical back: Normal range of motion and neck supple. Right lower leg: No edema. Left lower leg: No edema. Skin: General: Skin is warm and dry. Neurological: Mental Status: He is alert and oriented to person, place, and time. Mental status is at baseline. CARDIOVASCULAR MEDICINE TESTING: Exercise Stress Test Report Findings: 07/05/21 FINAL IMPRESSION: 1. Negative adequate exercise treadmill test by ECG criteria. 2. Fair exercise tolerance. 3. The patient did complain of the development of up to 8/10 retrosternal chest discomfort during the second stage of exercise which gradually improved over the course of the monitored recovery phase. 4. Infrequent isolated premature ventricular complexes were noted during exercise and the recovery phase; no complex ventricular arrhythmias were observed. 5. Please refer to the interpretation of the Sestamibi images for a complete report. Nuclear Exercise Stress Test Report Findings: 07/05/21 IMPRESSION: 1. Moderate area infarction in the inferior wall without significant residual myocardial ischemia 2. The ejection fraction is 40% with anterior and inferior wall hypokinesis. 3. No EKG changes diagnostic of Myocardial Ischemia with Bob Protocol achieving a total workload of 7 METS with chest discomfort. 8 out of 10 chest pain with exercise. Cardiac Catheterization Report Findings: 07/12/21 Impression: 1. Coronary artery disease; double vessel disease. 2. Status post CABG x3 grafts with 2 patent grafts and one occluded graft. The SVG to the first OM is known occluded. 3. Mild left ventricular systolic dysfunction with an LVEF of 40 to 45% with inferior/inferoapical wall hypokinesis. 4. Trivial mitral regurgitation. Recommendations: 1. Continue medical therapy. 2. We will add isosorbide mononitrate 60 mg daily (patient to take a half a tablet for the first 6 days). If the patient continues to have chest pain we will consider addition of Ranexa. Comments: 09/05/18 PCI/stent with a 2.25 x 8 synergy stent/drug-eluting stent to the 70-80% stenosis in the origin of a medium size inferior ramus branch of the first obtuse marginal branch reducing the initial 70-80% stenosis and leaving less than 10% residual stenosis. Echocardiogram Date 07/10/2022 CONCLUSIONS: - Exam indication: Shortness of Breath - The left ventricle is normal in size. There is moderate concentric left ventricular hypertrophy. Left ventricular systolic function is normal. EF = 55 ? 5% (2D biplane) Definity contrast used for endocardial border detection. Normal left ventricular diastolic function. possible mild distal septal hypokinesis noted - The right ventricle is normal in size. Right ventricular systolic function is normal. no significant valvular abnormalities - The patient has not had a prior CC echocardiographic exam for comparison. Laboratories 07/14/2024 hemoglobin A1c 7.1, albumin 3.5, AST 23, ALT 26, cholesterol 112, triglycerides 91, HDL 37, LDL 57, sodium 141, potassium 4.6, chloride 110, bicarb 28, Leukos 153, BUN 20, creatinine 0.96, proBNP T-262, WBCs 8.54, hemoglobin 12.4, hematocrit 39.4, platelets 159. EKG today reveals normal sinus rhythm with occasional premature ventricular complexes. IMPRESSION AND RECOMMENDATIONS: Mr. Oropeza is a 74 year old male with history of CAD, status post previous stenting to the RCA x3 stents in 2014, status post CABG in 2014, s/p VERITO stent to the OM of the circumflex artery 05/24/18, and PCI/VERITO to the inferior ramus branch of the first OM 09/08/18. 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 CAD. History of 3 stents to the right coronary 2015 and coronary bypass graft surgery in 2014, status post 3.0 drug-eluting stent to the first OM of the circumflex May 24, 2018, and PCI/VERITO to the inferior ramus branch of the first OM 09/08/18. The patient's most recent cardiac catheterization was performed on 07/12/21 following exertional CP. There were no significant changes when comparing this study to the one following his PCI in 2019. The patient's previous stent in the origin of the inferior ramus of the patient's 1st OM branch was widely patent. Given the patient's continuing complaints of chest pain, he was started on Imdur. The patient reports that he feels well on Imdur therapy. Given his history of multiple interventions, he has been continued on dual antiplatelet therapy with aspirin and Brilinta. Currently the patient is off aspirin and Brilinta following his urological procedure. We will reach out to his urologist Dr. Raman, to see if he can resume his aspirin, Brilinta and Farxiga. He is also maintained on ACEi, beta-grazyna, and statin therapy. The patient has been encouraged to participate in regular exercise. The patient is scheduled to return for follow-up in 8 months. Prior to his next appointment full labs will be obtained. Hypotension. The patient reports an episode of feeling dizzy and woozy yesterday with systolic blood pressure 101. The patient's manual blood pressure today is 98/60. Patient has been advised to decrease lisinopril to 10 mg daily. The patient is to decrease isosorbide mononitrate to 30 mg daily for 6 days. If the patient has no angina he is to stop the isosorbide mononitrate. The patient is to submit a blood pressure diary in 1 month. Chronic systolic CHF. The patient's most recent EF by Left ventriculography during cardiac catheterization 07/12/2021 was 40 to 45% with inferior/inferoapical wall hypokinesis and trivial mitral regurgitation. The echocardiogram of 07/10/2022 revealed an EF of 55?5%. The patient is compensated on today's exam. The pro BNPT on 07/14/2024 was 262. The patient is currently off SGLT-2 inhibitor as advised by his recent bladder surgery. We will reach out to his urologist to see if the patient may resume the SGLT-2 inhibitor. Hypertension. He will follow a no added salt diet. As above, the patient is currently experiencing borderline low blood pressure readings, as noted above. We have advised him to decrease his Lisinopril to 10mg daily, and we are weaning him off of Isosorbide Mononitrate. Hyperlipidemia. Our goal LDL is less than 55 with his history of CAD and diabetes mellitus. He is maintained on Lipitor 80 mg nightly and Zetia 10 mg daily. He will follow a low-fat, low-cholesterol diet. The LDL on 07/14/2024 was 57. The patient is close to goal. A fasting lipid profile and hepatic profile will be obtained prior to his next appointment. Type 2 diabetes mellitus. The patient had been on Farxiga 10 mg daily prior to his bladder surgery. We will check with his urologist if he can resume the Farxiga. The hemoglobin A1c on 07/14/2024 was 7.1. The patient is to follow a diabetic diet. Hemoglobin A1c will be obtained prior to his next appointment. Thrombocytopenia. The patient has a history of thrombocytopenia. On the patient's recent blood work of 07/14/2024 the platelet count was 159. CBC will be obtained prior to his next appointment. Bladder cancer. The patient is followed by Dr. Raman. The patient underwent transurethral resection of multiple large bladder tumors greater than 5 cm in size and instillation of Mitomycin on 07/15/2024. Allen oDty MD Scribe Attestation: By signing my name below, I,Lilian Gómez, RN, attest that this documentation has been prepared under the direction and in the presence of Allen Doty MD. Electronically Signed: Lilian Gómez RN, Scribe. July 21, 2024 at 2:30 PM. Provider Attestation: IAllen MD personally performed the services described in this documentation. All medical record entries made by the scribe were at my direction and in my presence. I have reviewed the chart and discharge instructions (if applicable) and agree that the record reflects my personal performance and is accurate and complete. Electronically Signed: Allen Doty MD, July 25, 2024 Allergies As of Date: 07/21/2024 Noted Allergy Reaction PREDNISONE 02/08/2022 9 - Itching Comments: Flushed red TAMSULOSIN 06/19/2022 9 - Itching Date Reviewed: 07/21/2024 Reviewed by: Allen Doty MD - Fully Assessed Reason for Visit: Follow Up [171] Cmt: 2 year return office visit last seen 2022 Has not taken Brillinta or aspirin on 07-05-24 and to resume on August 03, 2024. Primary Visit Diagnosis:Coronary artery disease, unspecified vessel or lesion type, unspecified whether angina present, unspecified whether [place] or transplanted heart [I25.10] Other Visit Diagnoses:Dyslipidemia [E78.5] Type 2 diabetes mellitus with other circulatory complication, without long-term current use of insulin (HCC) [E11.59] Essential hypertension [I10] Chronic systolic congestive heart failure (HCC) [I50.22] Thrombocytopenia (HCC) [D69.6] Hypertension, unspecified type [I10] Order(s):ECG B/O W INTERP (MED OFFICE) [ECG06] Order #: [id number] BASIC METABOLIC PANEL [SQBMP] Order #: [id number] FUTURE COMPLETE BLOOD COUNT [SQCBC] Order #: [id number] FUTURE LIPID PANEL BASIC [SQLIPB] Order #: [id number] FUTURE HEPATIC FUNCTION PNL [SQHFP] Order #: [id number] FUTURE HEMOGLOBIN A1C [NNCBF2A] Order #: [id number] FUTURE NT PRO BNP [SQNTBNP] Order #: [id number] FUTURE lisinopril (ZESTRIL) 20 mg tabletTake 0.5 tablets by mouth once daily.Disp: 90 tabletRfl: 3 Prescriptions as of 07/25/2024 - lisinopril (ZESTRIL) 20 mg tablet Take 0.5 tablets by mouth once daily. - atorvastatin (LIPITOR) 80 mg tablet Take 1 tablet by mouth once daily. - ezetimibe (ZETIA) 10 mg tablet Take 1 tablet by mouth once daily. - metoprolol succinate ER (TOPROL XL) 25 mg 24 hr tablet Take 1 tablet by mouth two times a day. - pantoprazole DR (PROTONIX) 40 mg tablet Take 1 tablet by mouth once daily. - dapagliflozin propanediol (FARXIGA) 10 mg tablet Take 1 tablet by mouth daily with breakfast. - ticagrelor (BRILINTA) 90 mg tablet Take 1 tablet by mouth two times a day. - nitroglycerin sublingual (NITROQUICK) 0.4 mg SL tablet Dissolve 1 tablet under the tongue every 5 minutes as needed for chest pain. - acetaminophen 325 mg cap Take by mouth as needed. - aspirin 81 mg cap Take 81 mg by mouth once daily. Stopped 02/07/22 on own, never heard from Dr. Doty Problem List As Of Date 07/21/2024 Noted Resolved Obesity, Class I, BMI 30-34.9 [E66.811] 02/13/2022 HTN (hypertension) [I10] 02/14/2022 WI (myocardial infarction) (HCC) [I21.9] 02/14/2022 CAD (coronary artery disease) [I25.10] 02/14/2022 Gastroesophageal reflux disease [K21.9] 02/14/2022 Carpal tunnel syndrome [G56.00] 10/05/2021 Cataract of both eyes [H26.9] 06/15/2022 Chronic systolic heart failure (HCC) [I50.22] 06/04/2019 Closed fracture of phalanx of toe [S92.919A] 06/15/2022 Coronary atherosclerosis of autologous bypass g*06/15/2022 Eczema of lower leg [L30.9] 06/15/2022 Folliculitis [L73.9] 06/15/2022 Hematuria [R31.9] 10/13/2021 History of myocardial infarction [I25.2] 04/29/2017 Hypercholesterolemia [E78.00] 04/29/2017 Mass of urinary bladder [N32.89] 10/13/2021 Osteoarthritis [M19.90] 06/15/2022 Right flank pain [R10.9] 10/05/2021 Seborrheic keratosis [L82.1] 06/15/2022 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 Follow a low cholesterol, no added salt and diabetic diet. Continue current medical regimen. Decrease lisinopril to 10 mg daily. Decrease isosorbide to 30 mg daily for 6 days and if no chest pain then discontinue isosorbide. Call Dr. Raman about resuming medications. Return for follow up in 8 months. Bring a current list of you medications to your next appointment. Obtain fasting blood work 1 week prior to next appointment. Prescriptions ordered this encounter Disp Refills Start End LISINOPRIL 20 MG TABLET 90 t* 3 07/21/2024 07/21/2025 Class: Med Update Route: ORAL Sig: Take 0.5 tablets by mouth once daily. Medications Discontinued During This Encounter Prescriptions - glucos sul 2KCl/msm/chond/C/Mn (GLUCOSAMINE CHONDROITIN ORAL) (Discontinued) Reported on 07/21/2024 - mecobalamin, vitamin B12, 5,000 mcg lozg (Discontinued) Reported on 03/12/2023 - TURMERIC ORAL (Discontinued) Reported on 07/21/2024 - vitamin B complex (B COMPLEX 1 ORAL) (Discontinued) Reported on 03/12/2023 - glucos sul 2KCl/msm/chond/C/Mn (GLUCOSAMINE CHONDROITIN ORAL) (Discontinued) Reported on 07/21/2024 - isosorbide mononitrate ER (IMDUR) 60 mg 24 hr tablet (Discontinued) Take 1 tablet by mouth once daily. - lisinopril (ZESTRIL) 20 mg tablet (Discontinued) Take 1 tablet by mouth once daily. Level of Service: OFFICE/OUTPATIENT ESTABLISHED [facility] 40 MIN [97649] Additional E/M codes: VISIT HANNAH CARUSO WITH MED * Letter Text Encounter Status:Closed by ALLEN DOTY on 07/25/24 TOSHIA Observed: 07/21/2024 12:00 AM Status: COMPLETED Source: [facility] Telephone (CARMOB) BASHIR OROPEZA ([id number]) 1950 M Date Time Provider Department 07/21/24 ALLEN DOTY CARMOB During your visit today, we recorded the following information about you: Lilian óGmez RN 07/21/2024 4:04 PM Signed Per call Dr. Raman [phone] See if it is okay to resume aspirin, Brilinta and Farxiga. I tried calling the office today but the line was busy. Lilian Gómez RN 07/22/2024 2:03 PM Signed I Tried calling the doctor's office again the office remains closed at this time. Lilian Gómez RN 07/24/2024 9:02 AM Signed The office remains closed at this time. Lilian Gómez RN 07/27/2024 3:42 PM Signed Left message on the machine for the nurse to call us back regarding the patient's medications. Kimberly Marques 07/30/2024 10:31 AM Signed Patient called stating his Farxiga and Brilinta scripts go to [facility]. However, he said Dr. Doty was supposed to send his other meds to [facility] in [place]. Patient called [facility] yesterday and they do not have any scripts. Allen Doty MD 07/30/2024 1:37 PM Signed I do not understand what the problem is. I sent all of his other prescriptions to [facility] on 07/09/24. There is confirmation that the prescriptions were received by the pharmacy. I did attempt to contact the pharmacy to find out if there was some problem related to e-scribing the medications. I have left my phone number and will be expecting a return call. The Farxiga and Brilinta prescriptions were sent to [facility] in March, and still have multiple refills left. Allen Mello MD 07/30/2024 3:24 PM Signed The pharmacy confirmed that they are filling the prescriptions, and that they have spoken to the patient. Lilian Duarte RN 07/31/2024 10:16 AM Signed I spoke to the patient. He states that he resumed aspirin, Brilinta and Farxiga on July 29, 2024. He is awaiting for the Brilinta and Farxiga to come from [facility].He will check with marked on his other prescriptions. He said they never called him. The patient will call us back if there is an issue. 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 - atorvastatin (LIPITOR) 80 mg tablet Take 1 tablet by mouth once daily. - ezetimibe (ZETIA) 10 mg tablet Take 1 tablet by mouth once daily. - metoprolol succinate ER (TOPROL XL) 25 mg 24 hr tablet Take 1 tablet by mouth two times a day. - pantoprazole DR (PROTONIX) 40 mg tablet Take 1 tablet by mouth once daily. - dapagliflozin propanediol (FARXIGA) 10 mg tablet Take 1 tablet by mouth daily with breakfast. - ticagrelor (BRILINTA) 90 mg tablet Take 1 tablet by mouth two times a day. - nitroglycerin sublingual (NITROQUICK) 0.4 mg SL tablet Dissolve 1 tablet under the tongue every 5 minutes as needed for chest pain. - acetaminophen 325 mg cap Take by mouth as needed. - aspirin 81 mg cap Take 81 mg by mouth once daily. Stopped 02/07/22 on own, never heard from Dr. Doty Problem List As Of Date 07/21/2024 Noted Resolved Obesity, Class I, BMI 30-34.9 [E66.811] 02/13/2022 HTN (hypertension) [I10] 02/14/2022 WI (myocardial infarction) (HCC) [I21.9] 02/14/2022 CAD (coronary artery disease) [I25.10] 02/14/2022 Gastroesophageal reflux disease [K21.9] 02/14/2022 Carpal tunnel syndrome [G56.00] 10/05/2021 Cataract of both eyes [H26.9] 06/15/2022 Chronic systolic heart failure (HCC) [I50.22] 06/04/2019 Closed fracture of phalanx of toe [S92.919A] 06/15/2022 Coronary atherosclerosis of autologous bypass g*06/15/2022 Eczema of lower leg [L30.9] 06/15/2022 Folliculitis [L73.9] 06/15/2022 Hematuria [R31.9] 10/13/2021 History of myocardial infarction [I25.2] 04/29/2017 Hypercholesterolemia [E78.00] 04/29/2017 Mass of urinary bladder [N32.89] 10/13/2021 Osteoarthritis [M19.90] 06/15/2022 Right flank pain [R10.9] 10/05/2021 Seborrheic keratosis [L82.1] 06/15/2022 Status post coronary artery bypass graft [Z95.1]05/23/2018 Thrombocytopenia (HCC) [D69.6] 06/04/2019 Tingling sensation [R20.2] 06/04/2019 Encounter Status:Closed by ALLEN DOTY on 07/30/24 TOSHIA Observed: 2024 12:00 AM Status: COMPLETED Source: [facility] Telephone (CARMOB) BASHIR OROPEZA ([id number]) 1950 M Date Time Provider Department 07/16/24 ALLEN DOTY During your visit today, we recorded the following information about you: Lilian Gómez RN 2024 9:30 AM Signed Please obtain records from [facility] 2024 12:02 PM Signed Faxed record request to [facility]. Karen Luna 07/17/2024 10:46 AM Signed Received and scanned records into chart from [facility]. Will put records on desk to view. Allergies As of Date: 2024 Noted Allergy Reaction PREDNISONE 02/08/2022 9 - Itching Comments: Flushed red TAMSULOSIN 06/19/2022 9 - Itching Date Reviewed: 03/12/2023 Reviewed by: Allen Doty MD - Fully Assessed Prescriptions as of 07/20/2024 - atorvastatin (LIPITOR) 80 mg tablet Take 1 tablet by mouth once daily. - ezetimibe (ZETIA) 10 mg tablet Take 1 tablet by mouth once daily. - isosorbide mononitrate ER (IMDUR) 60 mg 24 hr tablet Take 1 tablet by mouth once daily. - lisinopril (ZESTRIL) 20 mg tablet Take 1 tablet by mouth once daily. - metoprolol succinate ER (TOPROL XL) 25 mg 24 hr tablet Take 1 tablet by mouth two times a day. - pantoprazole DR (PROTONIX) 40 mg tablet Take 1 tablet by mouth once daily. - dapagliflozin propanediol (FARXIGA) 10 mg tablet Take 1 tablet by mouth daily with breakfast. - ticagrelor (BRILINTA) 90 mg tablet Take 1 tablet by mouth two times a day. - glucos sul 2KCl/msm/chond/C/Mn (GLUCOSAMINE CHONDROITIN ORAL) Take 1 tablet by mouth once daily. - TURMERIC ORAL Take 1 tablet by mouth once daily. - nitroglycerin sublingual (NITROQUICK) 0.4 mg SL tablet Dissolve 1 tablet under the tongue every 5 minutes as needed for chest pain. - acetaminophen 325 mg cap Take by mouth as needed. - mecobalamin, vitamin B12, 5,000 mcg lozg Take 5,000 mcg by mouth. - aspirin 81 mg cap Take 81 mg by mouth once daily. Stopped 02/07/22 on own, never heard from Dr. Doty - vitamin B complex (B COMPLEX 1 ORAL) Take 1 tablet by mouth once daily. Problem List As Of Date 2024 Noted Resolved Obesity, Class I, BMI 30-34.9 [E66.811] 02/13/2022 HTN (hypertension) [I10] 02/14/2022 WI (myocardial infarction) (HCC) [I21.9] 02/14/2022 CAD (coronary artery disease) [I25.10] 02/14/2022 Gastroesophageal reflux disease [K21.9] 02/14/2022 Carpal tunnel syndrome [G56.00] 10/05/2021 Cataract of both eyes [H26.9] 06/15/2022 Chronic systolic heart failure (HCC) [I50.22] 06/04/2019 Closed fracture of phalanx of toe [S92.919A] 06/15/2022 Coronary atherosclerosis of autologous bypass g*06/15/2022 Eczema of lower leg [L30.9] 06/15/2022 Folliculitis [L73.9] 06/15/2022 Hematuria [R31.9] 10/13/2021 History of myocardial infarction [I25.2] 04/29/2017 Hypercholesterolemia [E78.00] 04/29/2017 Mass of urinary bladder [N32.89] 10/13/2021 Osteoarthritis [M19.90] 06/15/2022 Right flank pain [R10.9] 10/05/2021 Seborrheic keratosis [L82.1] 06/15/2022 Status post coronary artery bypass graft [Z95.1]05/23/2018 Thrombocytopenia (HCC) [D69.6] 06/04/2019 Tingling sensation [R20.2] 06/04/2019 Encounter Status:Closed by KAREN LUNA on 07/17/24 CBC PNL BLD AUTO Collected: 07/14/2024 8:48 AM Statu s: F Source: [facility] Order Comment: Specimen Type : BLOOD SPECIMEN Ordering Facility: [facility] Address: [address] [place] [address] TYPE CODE TESTS RESULT OUT OF RANGE REFERENCE UNITS LAB 6690-2([facility]) WBC # Bld Auto 8.54 3.70-11.00 k/uL LAB 789-8(LOINC) RBC # Bld Auto 4.38 4.20-6.00 m/ uL LAB 718-7([facility]) Hgb Bld-mCnc 12.4 Low 13.0-17.0 g/dL LAB 4544-3([facility]) Hct VFr Bld Auto 39.4 39.0-51.0 % LAB 787-2([facility]) MCV RBC Auto 90.0 80.0-100.0 fL LAB 785-6([facility]) MCH RBC Qn Auto 28.3 26.0-34.0 pg LAB 786-4([facility]) MCHC RBC Auto-mCnc 31.5 30.5-36.0 g/dL LAB 33677-2([facility]) RDW RBC-Rto 13.9 11.5-15.0 % LAB 777-3([facility]) Platelet # Bld Auto 159 150-400 k/uL LAB 97007-2([facility]) PMV Bld Auto 10.7 9.0-12.7 fL Performed By: #### 85003-2 # ### [facility] [id number] [address] [place], [place] [id number] [place] [address] OF [facility] BAS METAB 2000 PNL SERPL Collected: 8:48 AM Status: F Source: [facility] Order Comment: Specimen Type : BLOOD SPECIMEN Ordering Facility: [facility] Address: [address] [place] [address] TYPE CODE TESTS RESULT OUT OF RANGE REFERENCE UNITS LAB 2345-7([facility]) Glucose SerPl-mCnc 153 High 70-100 mg/dL Result Comment: The [place] Diabetes Association (ADA) provides guidance for cutoff values for fasting glucose and random glucose. The ADA defines fasting as no caloric intake for at least 8 hours. Fasting plasma glucose results between 100 to 125 mg/dL indicate increased risk for diabetes (prediabetes). Fasting plasma glucose results greater than or equal to 126 mg/dL meet the criteria for diagnosis of diabetes. In the absence of unequivocal hyperglycemia, results should be confirmed by repeat testing. In a patient with classic symptoms of hyperglycemia or hyperglycemic crisis, random plasma glucose results greater than or equal to 200 mg/dL meet the criteria for diagnosis of diabetes. Reference: Standards of Medical Care in Diabetes 2016, [place] Diabetes Association. Diabetes Care. 2016.39(Suppl 1). Results may be falsely elevated after the administration of Sulfapyridine. Results may be falsely depressed after the administration of Sulfasalazine. LAB 3094-0(LOINC) BUN SerPl-mCnc 20 7-26 mg/ dL LAB 2160-0(LOINC) Creat SerPl-mCnc 0.96 0.50-1.40 mg/dL Result Comment: Patients rec eiving either N-Acetylcysteine (NAC) or Metamizole prior to venipuncture, may have falsely depressed results. LAB 2951-2(LOINC) Sodium SerPl-sCnc 141 136-145 mmol/L LAB 2823-3(LOINC) Potassium SerPl-sCnc 4.6 3.5-5.1 mmol/L LAB 2075-0(LOINC) Chloride SerPl-sCnc 110 High 98-107 mmol/L LAB 2028-9(LOINC) CO2 SerPl-sCnc 28 21-32 mmo l/L LAB 42793-4(LOINC) Anion Gap SerPl-sCnc 3 Low 5-16 mmol/L LAB 22984-8(LOINC) Calcium SerPl-mCnc 9.7 8.5-10.5 mg/dL LAB 98134-3(LOINC) Creatinine + eGFR Pnl SerPlBld 85 >=60 mL/min/1. 73m??? Result Comment: Estimated Gl omerular Filtration Rate (eGFR) is calculated using the 2020 CKD-EPI creatinine equation. This equation utilizes serum creatinine, sex, and age as parameters. The creatinine assay has traceable calibration to isotope dilution-mass spectrometry. Refer to KDIGO guidelines for clinical interpretation. In patients with unstable renal function, e.g. those with acute kidney injury, the eGFR may not accurately reflect actual GFR. Performed By: #### 45940-3, 87127-7, 57729-4 #### [facility] CLIA [id number] [address] [place] [address] [facility] [place] #### 32122-0 #### [facility] CLIA [id number] [address] [place] [address] [facility] CLIA [id number] [address] [place] [address] [facility] HEP FUNC 2000 PNL SERPL Collected: 06/27 8:48 AM Status: F Source: [facility] Order Comment: Specimen Type : BLOOD SPECIMEN Ordering Facility: [facility] Address: [address] [place] [address] TYPE CODE TESTS RESULT OUT OF RANGE REFERENCE UNITS LAB 1751-7(LOINC) Albumin SerPl-mCnc 3.5 3.2-5.0 g/dL LAB 1975-2(LOINC) Bilirub SerPl-mCnc 0.4 0.2-1.0 mg/dL LAB 03053-4(LOINC) Bilirub Conj SerPl-mCnc 0.2 0.0-0.4 mg/dL LAB 6768-6(LOINC) ALP SerPl-cCnc 40 Low 45-117 U/L LAB 1920-8(LOINC) AST SerPl-cCnc 23 8-34 U/L Result Comment: Results may be falsely depressed after the administration of Sulfasalazine and/or Sulfapyridine. LAB 1742-6(LOINC) ALT SerPl-cCnc 26 13-61 U/L Result Comment: Results may be falsely depressed after the administration of Sulfasalazine and/or Sulfapyridine. LAB 2885-2(LOINC) Prot SerPl-mCnc 6.6 6.0-8.5 g/dL Performed By: #### 14162-0, 92728-7, 87020-4 #### [facility] CLIA [id number] [address] [place] [address] [facility] #### 18831-2 #### [facility] CLIA [id number] [address] [place] [address] [place] [facility] CLIA [id number] [address] [place] [address] [facility] LIPID 1996 PNL SERPL Collected: 025 8:48 AM Status: F Source: [facility] Order Comment: Specimen Type : BLOOD SPECIMEN Ordering Facility: [facility] Address: [address] [place] [address] TYPE CODE TESTS RESULT OUT OF RANGE REFERENCE UNITS LAB 2093-3(LOINC) Cholest SerPl-mCnc 112 0-199 mg/dL Result Comment: <200 mg/dL, Desirable 200-239 mg/dL, Borderline high >239 mg/dL, High LAB 2571-8(LOINC) Trigl SerPl-mCnc 91 30-149 mg/dL Result Comment: <150 mg/dL, Normal 150-199 mg/dL, Borderline high 200-499 mg/dL, High >499 mg/dL, Very high Patients receiving either N-Acetylcysteine (NAC) or Metamizole prior to venipuncture, may have falsely depressed results. LAB 5-9(LOINC) HDLc SerPl-mCnc 37 Low >40 mg/dL Result Comment: 40-59 mg/dL, Acceptable >59 mg/dL, High: Negative risk factor for coronary heart disease <40 mg/dL, Low: Positive risk factor for coronary heart disease LAB 97581-4(LOINC) NonHDLc SerPl-mCnc 75 <130 mg/dL Result Comment: <130 mg/dL, Optimal 130-159 mg/dL, Near optimal/above optimal 160-189 mg/dL, Borderline high 190-219 mg/dL, High >219 mg/dL, Very high Secondary prevention optimal non HDL Cholesterol levels are recommended to be <100 mg/dL LAB FT FASTING TIME 12 hrs LAB 86121-0(LOINC) VLDLc SerPl Calc-mCnc 18 <30 mg/dL LAB 9830-1(LOINC) Cholest/HDLc SerPl 3.03 <5.10 LAB 2089-1(LOINC) LDLc SerPl-mCnc 57 0-129 mg/dL Result Comment: <100 mg/dL, Optimal 100-129 mg/dL, Near optimal/above optimal 130-159 mg/dL, Borderline high 160-189 mg/dL, High >189 mg/dL, Very high Secondary prevention optimal LDL Cholesterol levels are recommended to be < 70 mg/dL LAB 53323-2(LOINC) LDLc/HDLc SerPl 1.54 <2.54 Result Comment: Reference: 1. National Cholesterol Education Program ATP III Guideline At-A-Glance Quick Desk Reference: National Heart, Lung, and Blood [place]. National Institutes of Health. 2001: NIH Publication No. 01-3305. 2. An International Atherosclerosis Society position paper: global recommendations for the management of dyslipidemia: executive summary, Atherosclerosis. 2014: 232(2):410-413. Performed By: #### 02315-3, 36788-7, 85575-7 #### [facility] CLIA [id number] [address] [place] [address] #### 81067-4 #### [facility] CLIA [id number] [address] [place] [address] LAB CLIA [id number] [address] [place], [place] [id number] [place] [address] NT-PROBNP SERPL-MCNC Collected: 07/14/2024 8:48 AM S tatus: F Source: [facility] Order Comment: Specimen Type : BLOOD SPECIMEN Ordering Facility: [facility] Address: [address] [place] [address] TYPE CODE TESTS RESULT OUT OF RANGE REFERENCE UNITS LAB 88760-4([facility]) NT-proBNP SerPl-mCnc 262 High <125 pg/mL Result Comment: NT-proBNP re sults of less than 300 pg/mL likely rules out acute congestive heart failure with 99% predictive value. NOTE: These cutoff points are suggested for ACUTE CHF DIAGNOSIS only Less than 50 years\X09\ Greater than 450 pg/mL 50 - 75 years\X09\\X09\ Greater than 900 pg/mL Greater than 75 years\X09\ Greater than 1800 pg/mL Performed By: #### 40507-3, 98324-9, 23962-2 #### [facility] CLIA [id number] [address] [place] [address] [place] #### 77863-9 #### [facility] CLIA [id number] [address] [place] [address] [place] [facility] CLIA [id number] [address] [place] [address] [place] DEPRECATED HGB A1C BLD Collected: 07/14 8:48 AM Status: F Source: [facility] Order Comment: Specimen Type : BLOOD SPECIMEN Ordering Facility: [facility] Address: [address] [place] [address] TYPE CODE TESTS RESULT OUT OF RANGE REFERENCE UNITS LAB 4548-4([facility]) HbA1c MFr Bld 7.1 High 4.3-5.6 % Result Comment: [place] [employer] betes Association guidelines indicate that patients with HgbA1c in the range 5.7-6.4% are at increased risk for development of diabetes, and intervention by lifestyle modification may be beneficial. HgbA1c greater or equal to 6.5% is considered diagnostic of diabetes. LAB 04010-0(INC) Est. average glucose Bld gHb Est-mCnc 157 mg/dL Result Comment: eAG: (Estima kala average glucose) is a calculated value from HgbA1c and is medical billing representative of the average blood glucose level in the last 2-3 month period. Performed By: #### 26641-1 # ### [facility] CLIA [id number] [address] [facility] DES[id number] [place] [address] [place] CNPN Observed: 07/09/2024 12:00 AM Status: COMPLETED Source: [facility] Telephone (SHANTELLMOB) BASHIR OROPEZA ([id number]) 1950 M Date Time Provider Department 07/09/24 SOREN, ALLEN C CARMOB During your visit today, we recorded the following information about you: Flavio Bryant MA 07/09/2024 9:57 AM Addendum Patient called stating he is having Bladder surgery on 07/15/2024 at [facility]. They want him to stop taking Brillinta and Aspirin for 2 weeks (he stopped them last week). Stop jardiance on the . The day of the surgery they only want him to take pantoprazole, metoprolol and isosorbide the day of surgery. Patient wants to make sure this is ok with Dr. Doty. Please advise. KENDAL Domínguez Steven C, MD 07/09/2024 1:54 PM Signed I do not believe we have actually ever received a clearance letter regarding this procedure. If this is the type of bladder surgery which is being performed using cystoscopy (not an open procedure), this would be considered low risk, and they may not even believe that they need a Clearance from Cardiology. If he is having an actual surgical procedure with general anesthesia, and the procedure is not an emergency, we normally would have recommended a stress test prior to clearing him (his last stress was in 2021; I have not seen him since February of 2023). As for holding the medications, there is a very modest risk associated with holding his heart medication, however, if the surgeon believes that this will be necessary to reduce his bleeding risk, then the pt can follow the instructions as described below. It seems that we are being asked these questions a bit on the late side, since he has already been holding two of his medications. Lilian Duarte RN 07/09/2024 3:02 PM Signed I spoke to his urologist Dr. Raman office [phone]. They will fax over the clearance form. The pt is asymptomatic. Gillian Rivera Naa 07/09/2024 3:09 PM Signed Received clearance form from [facility]. Patient is scheduled for surgery on 07/15/[address] Raman. Will scan clearance into chart and place in folder. Allen Doty MD 07/09/2024 3:14 PM Signed The Clearance form has been completed. Karen Mirza 07/10/2024 9:21 AM Signed Faxed, confirmed and scanned signed clearance into chart. 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 - ezetimibe (ZETIA) 10 mg tablet Take 1 tablet by mouth once daily. - isosorbide mononitrate ER (IMDUR) 60 mg 24 hr tablet Take 1 tablet by mouth once daily. - lisinopril (ZESTRIL) 20 mg tablet Take 1 tablet by mouth once daily. - metoprolol succinate ER (TOPROL XL) 25 mg 24 hr tablet Take 1 tablet by mouth two times a day. - pantoprazole DR (PROTONIX) 40 mg tablet Take 1 tablet by mouth once daily. - dapagliflozin propanediol (FARXIGA) 10 mg tablet Take 1 tablet by mouth daily with breakfast. - ticagrelor (BRILINTA) 90 mg tablet Take 1 tablet by mouth two times a day. - glucos sul 2KCl/msm/chond/C/Mn (GLUCOSAMINE CHONDROITIN ORAL) Take 1 tablet by mouth once daily. - TURMERIC ORAL Take 1 tablet by mouth once daily. - nitroglycerin sublingual (NITROQUICK) 0.4 mg SL tablet Dissolve 1 tablet under the tongue every 5 minutes as needed for chest pain. - acetaminophen 325 mg cap Take by mouth as needed. - mecobalamin, vitamin B12, 5,000 mcg lozg Take 5,000 mcg by mouth. - aspirin 81 mg cap Take 81 mg by mouth once daily. Stopped 02/07/22 on own, never heard from Dr. Doty - vitamin B complex (B COMPLEX 1 ORAL) Take 1 tablet by mouth once daily. Problem List As Of Date 07/09/2024 Noted Resolved Obesity, Class I, BMI 30-34.9 [E66.811] 02/13/2022 HTN (hypertension) [I10] 02/14/2022 WI (myocardial infarction) (HCC) [I21.9] 02/14/2022 CAD (coronary artery disease) [I25.10] 02/14/2022 Gastroesophageal reflux disease [K21.9] 02/14/2022 Carpal tunnel syndrome [G56.00] 10/05/2021 Cataract of both eyes [H26.9] 06/15/2022 Chronic systolic heart failure (HCC) [I50.22] 06/04/2019 Closed fracture of phalanx of toe [S92.919A] 06/15/2022 Coronary atherosclerosis of autologous bypass g*06/15/2022 Eczema of lower leg [L30.9] 06/15/2022 Folliculitis [L73.9] 06/15/2022 Hematuria [R31.9] 10/13/2021 History of myocardial infarction [I25.2] 04/29/2017 Hypercholesterolemia [E78.00] 04/29/2017 Mass of urinary bladder [N32.89] 10/13/2021 Osteoarthritis [M19.90] 06/15/2022 Right flank pain [R10.9] 10/05/2021 Seborrheic keratosis [L82.1] 06/15/2022 Status post coronary artery bypass graft [Z95.1]05/23/2018 Thrombocytopenia (HCC) [D69.6] 06/04/2019 Tingling sensation [R20.2] 06/04/2019 Encounter Status:Closed by FLAVIO BRYANT on 07/10/24 TOSHIA Observed: 07/06/2024 12:00 AM Status: COMPLETED Source: [facility] Telephone (CARMOB) BASHIR OROPEZA ([id number]) 1950 M Date Time Provider Department 07/06/24 ALLEN DOTY During your visit today, we recorded the following information about you: Elham Buckley, RN 07/06/2024 2:08 PM Signed Please fax any cardiac testing from last 5 years and last office note faxed to [phone]. Owen Jones- [facility]. Gillian Rivera 07/07/2024 12:24 PM Signed Faxed records to [facility] Pre-Admission Testing at [phone]. Allergies As of Date: 07/06/2024 Noted Allergy Reaction PREDNISONE 02/08/2022 9 - Itching Comments: Flushed red TAMSULOSIN 06/19/2022 9 - Itching Date Reviewed: 03/12/2023 Reviewed by: Allen Doty MD - Fully Assessed Prescriptions as of 07/07/2024 - dapagliflozin propanediol (FARXIGA) 10 mg tablet Take 1 tablet by mouth daily with breakfast. - ticagrelor (BRILINTA) 90 mg tablet Take 1 tablet by mouth two times a day. - lisinopril (ZESTRIL) 20 mg tablet Take 1 tablet by mouth once daily. - isosorbide mononitrate ER (IMDUR) 60 mg 24 hr tablet Take 1 tablet by mouth once daily. - ezetimibe (ZETIA) 10 mg tablet Take 1 tablet by mouth once daily. - metoprolol succinate ER (TOPROL XL) 25 mg 24 hr tablet Take 1 tablet by mouth two times a day. - atorvastatin (LIPITOR) 80 mg tablet Take 1 tablet by mouth once daily. - glucos sul 2KCl/msm/chond/C/Mn (GLUCOSAMINE CHONDROITIN ORAL) Take 1 tablet by mouth once daily. - TURMERIC ORAL Take 1 tablet by mouth once daily. - nitroglycerin sublingual (NITROQUICK) 0.4 mg SL tablet Dissolve 1 tablet under the tongue every 5 minutes as needed for chest pain. - acetaminophen 325 mg cap Take by mouth as needed. - mecobalamin, vitamin B12, 5,000 mcg lozg Take 5,000 mcg by mouth. - pantoprazole DR (PROTONIX) 40 mg tablet Take 40 mg by mouth once daily. - aspirin 81 mg cap Take 81 mg by mouth once daily. Stopped 02/07/22 on own, never heard from Dr. Doty - vitamin B complex (B COMPLEX 1 ORAL) Take 1 tablet by mouth once daily. Problem List As Of Date 07/06/2024 Noted Resolved Obesity, Class I, BMI 30-34.9 [E66.811] 02/13/2022 HTN (hypertension) [I10] 02/14/2022 WI (myocardial infarction) (HCC) [I21.9] 02/14/2022 CAD (coronary artery disease) [I25.10] 02/14/2022 Gastroesophageal reflux disease [K21.9] 02/14/2022 Carpal tunnel syndrome [G56.00] 10/05/2021 Cataract of both eyes [H26.9] 06/15/2022 Chronic systolic heart failure (HCC) [I50.22] 06/04/2019 Closed fracture of phalanx of toe [S92.919A] 06/15/2022 Coronary atherosclerosis of autologous bypass g*06/15/2022 Eczema of lower leg [L30.9] 06/15/2022 Folliculitis [L73.9] 06/15/2022 Hematuria [R31.9] 10/13/2021 History of myocardial infarction [I25.2] 04/29/2017 Hypercholesterolemia [E78.00] 04/29/2017 Mass of urinary bladder [N32.89] 10/13/2021 Osteoarthritis [M19.90] 06/15/2022 Right flank pain [R10.9] 10/05/2021 Seborrheic keratosis [L82.1] 06/15/2022 Status post coronary artery bypass graft [Z95.1]05/23/2018 Thrombocytopenia (HCC) [D69.6] 06/04/2019 Tingling sensation [R20.2] 06/04/2019 Encounter Status:Closed by GILLIAN RIVERA on 07/07/24 TOSHIA Observed: 06/25/2024 12:00 AM Status: COMPLETED Source: [facility] Telephone (CARAppFirstB) BASHIR OROPEZA ([id number]) 1950 M Date Time Provider Department 06/25/24 ALLEN DOTY During your visit today, we recorded the following information about you: Lilian Gómez RN 06/25/2024 11:27 AM Signed The patient called in. He has an appointment with you July 21, 2024. His PCP does not order lab work. He wanted to know did you want him to get blood work before his appointment. He is going to have some type of bladder procedure but he does not know the name of it. He said he does not need cardiac clearance for the procedure. I did advise him to check with his urologist to see if they need us to clear him and to fax over the report. Allen Doty MD 06/26/2024 4:11 AM Signed I have provided orders for the pt to obtain labs the week prior to his appt. RODGER Lilian Gómez RN 06/26/2024 9:16 AM Signed lmom Lilian Gómez RN 06/26/2024 10:03 AM Signed Pt advised. 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 - ticagrelor (BRILINTA) 90 mg tablet Take 1 tablet by mouth two times a day. - lisinopril (ZESTRIL) 20 mg tablet Take 1 tablet by mouth once daily. - isosorbide mononitrate ER (IMDUR) 60 mg 24 hr tablet Take 1 tablet by mouth once daily. - ezetimibe (ZETIA) 10 mg tablet Take 1 tablet by mouth once daily. - metoprolol succinate ER (TOPROL XL) 25 mg 24 hr tablet Take 1 tablet by mouth two times a day. - atorvastatin (LIPITOR) 80 mg tablet Take 1 tablet by mouth once daily. - glucos sul 2KCl/msm/chond/C/Mn (GLUCOSAMINE CHONDROITIN ORAL) Take 1 tablet by mouth once daily. - TURMERIC ORAL Take 1 tablet by mouth once daily. - nitroglycerin sublingual (NITROQUICK) 0.4 mg SL tablet Dissolve 1 tablet under the tongue every 5 minutes as needed for chest pain. - acetaminophen 325 mg cap Take by mouth as needed. - mecobalamin, vitamin B12, 5,000 mcg lozg Take 5,000 mcg by mouth. - pantoprazole DR (PROTONIX) 40 mg tablet Take 40 mg by mouth once daily. - aspirin 81 mg cap Take 81 mg by mouth once daily. Stopped 02/07/22 on own, never heard from Dr. Doty - vitamin B complex (B COMPLEX 1 ORAL) Take 1 tablet by mouth once daily. Problem List As Of Date 06/25/2024 Noted Resolved Obesity, Class I, BMI 30-34.9 [E66.811] 02/13/2022 HTN (hypertension) [I10] 02/14/2022 WI (myocardial infarction) (HCC) [I21.9] 02/14/2022 CAD (coronary artery disease) [I25.10] 02/14/2022 Gastroesophageal reflux disease [K21.9] 02/14/2022 Carpal tunnel syndrome [G56.00] 10/05/2021 Cataract of both eyes [H26.9] 06/15/2022 Chronic systolic heart failure (HCC) [I50.22] 06/04/2019 Closed fracture of phalanx of toe [S92.919A] 06/15/2022 Coronary atherosclerosis of autologous bypass g*06/15/2022 Eczema of lower leg [L30.9] 06/15/2022 Folliculitis [L73.9] 06/15/2022 Hematuria [R31.9] 10/13/2021 History of myocardial infarction [I25.2] 04/29/2017 Hypercholesterolemia [E78.00] 04/29/2017 Mass of urinary bladder [N32.89] 10/13/2021 Osteoarthritis [M19.90] 06/15/2022 Right flank pain [R10.9] 10/05/2021 Seborrheic keratosis [L82.1] 06/15/2022 Status post coronary artery bypass graft [Z95.1]05/23/2018 Thrombocytopenia (HCC) [D69.6] 06/04/2019 Tingling sensation [R20.2] 06/04/2019 Encounter Status:Closed by LILIAN GÓMEZ on 06/26/24 TOSHIA Observed: 04/06/2024 12:00 AM Status: COMPLETED Source: [facility] Telephone (CARMOB) BASHIR OROPEZA ([id number]) 1950 Date Time Provider Department 04/06/24 ALLEN DOTY During your visit today, we recorded the following information about you: Lilian Gómez RN 04/06/2024 1:39 PM Signed Pt wants you to call him regarding meds from [facility] Flavio Bryant MA 04/08/2024 12:17 PM Signed Patient states he needs prescription of Brillinta and Farxiga sent to [facility]. KENDAL Domínguez Shannon M, MA 04/09/2024 3:53 PM Signed Patient states he got a call from [facility] today that the [employer] mail service is on strike, but we still need to fax Farxiga and Brillinta up to [facility]. Please print prescription when you return. KENDAL Domínguez Steven C, MD 04/15/2024 2:10 PM Signed Please make sure that I do this tomorrow. For uncertain reasons, I did not get back to this Encounter yesterday. Hopefully the pt will not be running out of his medications. Allen Mello MD 04/16/2024 8:18 AM Signed The Rx's have been printed and signed. Flavio Goldman MA 04/17/2024 9:02 AM Signed Farxiga Rx faxed confirmation obtained. Your fax has been successfully sent to [employer] at [phone]. From: Fax Sender 04/17/2024 8:53:09 AM Transmission Sent to: [employer] Phone: [phone] Billing information: '', '' Remote ID: Unique ID: [id number] Elapsed time: 3 minutes, 15 seconds. 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 No ANI data. No AOC data. ECM Resulting status code (0/339; 0/0): Success Pages sent: 1 - 1 Sent by: 04/17/2024 8:53:07 AM Conversion 1 page eliminated because it was blank. ([email or web address]:[email or web address]) 04/17/2024 8:53:07 AM Conversion Type: text/plain G3 to TIFF #1: Success [image/g3] (772ms) INSO #1: Success [image/tiff] (584ms) ([employer]-[email or web address]:WORKSRV1) 04/17/2024 8:53:04 AM Conversion Type: image/tiff G3 to TIFF #1: Success [image/g3] (609ms) INSO #1: Success [image/tiff] (738ms) ([employer]-[email or web address]:WORKSRV1) 04/17/2024 8:52:58 AM EDC Fax Submission Record EDC submitted fax from device [ [phone] ] from user [employer] Wanted Rx faxed, confirmation obtained. Your fax has been successfully sent to [employer] at [phone]. From: Fax Sender 04/17/2024 8:57:52 AM Transmission Sent to: [employer] User Phone: [phone] Billing information: '', '' Remote ID: Unique ID: [id number] Elapsed time: 3 minutes, 12 seconds. Used channel 74 on server engineer [employer]. No ANI data. No AOC data. ECM Resulting status code (0/339; 0/0): Success Pages sent: 1 - 1 Sent by: 04/17/2024 8:57:49 AM Conversion 1 page eliminated because it was blank. (InVisM51:WORKSRV1) 04/17/2024 8:57:49 AM Conversion Type: text/plain G3 to TIFF #1: Success [image/g3] (291ms) INSO #1: Success [image/tiff] (547ms) (CC-[email or web address]:WORKSRV1) 04/17/2024 8:57:48 AM Conversion Type: image/tiff G3 to TIFF #1: Success [image/g3] (45ms) INSO #1: Success [image/tiff] (689ms) (CC-YNVOAPX40:WORKSRV1) 04/17/2024 8:57:42 AM EDC Fax Submission Record EDC submitted fax from device [ [phone] ] from user [email or web address] Allergies As of Date: 04/06/2024 Noted Allergy Reaction PREDNISONE 02/08/2022 9 - Itching Comments: Flushed red TAMSULOSIN 06/19/2022 9 - Itching Date Reviewed: 03/12/2023 Reviewed by: Allen Doyt MD - Fully Assessed Reason for Visit: 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 - ticagrelor (BRILINTA) 90 mg tablet Take 1 tablet by mouth two times a day. - lisinopril (ZESTRIL) 20 mg tablet Take 1 tablet by mouth once daily. - isosorbide mononitrate ER (IMDUR) 60 mg 24 hr tablet Take 1 tablet by mouth once daily. - ezetimibe (ZETIA) 10 mg tablet Take 1 tablet by mouth once daily. - metoprolol succinate ER (TOPROL XL) 25 mg 24 hr tablet Take 1 tablet by mouth two times a day. - atorvastatin (LIPITOR) 80 mg tablet Take 1 tablet by mouth once daily. - glucos sul 2KCl/msm/chond/C/Mn (GLUCOSAMINE CHONDROITIN ORAL) Take 1 tablet by mouth once daily. - TURMERIC ORAL Take 1 tablet by mouth once daily. - nitroglycerin sublingual (NITROQUICK) 0.4 mg SL tablet Dissolve 1 tablet under the tongue every 5 minutes as needed for chest pain. - acetaminophen 325 mg cap Take by mouth as needed. - mecobalamin, vitamin B12, 5,000 mcg lozg Take 5,000 mcg by mouth. - pantoprazole DR (PROTONIX) 40 mg tablet Take 40 mg by mouth once daily. - aspirin 81 mg cap Take 81 mg by mouth once daily. Stopped 02/07/22 on own, never heard from Dr. Doty - vitamin B complex (B COMPLEX 1 ORAL) Take 1 tablet by mouth once daily. Problem List As Of Date 04/06/2024 Noted Resolved Obesity, Class I, BMI 30-34.9 [E66.811] 02/13/2022 HTN (hypertension) [I10] 02/14/2022 WI (myocardial infarction) (HCC) [I21.9] 02/14/2022 CAD (coronary artery disease) [I25.10] 02/14/2022 Gastroesophageal reflux disease [K21.9] 02/14/2022 Carpal tunnel syndrome [G56.00] 10/05/2021 Cataract of both eyes [H26.9] 06/15/2022 Chronic systolic heart failure (HCC) [I50.22] 06/04/2019 Closed fracture of phalanx of toe [S92.919A] 06/15/2022 Coronary atherosclerosis of autologous bypass g*06/15/2022 Eczema of lower leg [L30.9] 06/15/2022 Folliculitis [L73.9] 06/15/2022 Hematuria [R31.9] 10/13/2021 History of myocardial infarction [I25.2] 04/29/2017 Hypercholesterolemia [E78.00] 04/29/2017 Mass of urinary bladder [N32.89] 10/13/2021 Osteoarthritis [M19.90] 06/15/2022 Right flank pain [R10.9] 10/05/2021 Seborrheic keratosis [L82.1] 06/15/2022 Status post coronary artery bypass graft [Z95.1]05/23/2018 Thrombocytopenia (HCC) [D69.6] 06/04/2019 Tingling sensation [R20.2] 06/04/2019 Prescriptions ordered this encounter Disp Refills Start End DAPAGLIFLOZIN PROPANEDIOL 10 MG TABL* 90 t* 3 04/16/2024 04/16/2025 Class: Print RX Route: ORAL Sig: Take 1 tablet by mouth daily with breakfast. TICAGRELOR 90 MG TABLET 180 * 3 04/16/2024 04/16/2025 Class: Print RX Route: ORAL Sig: Take 1 tablet by mouth two times a day. Medications Discontinued During This Encounter Prescriptions - dapagliflozin propanediol (FARXIGA) 10 mg tablet (Discontinued) Take 1 tablet by mouth daily with breakfast. - ticagrelor (BRILINTA) 90 mg tablet (Discontinued) Take 1 tablet by mouth two times a day. Encounter Status:Closed by FLAVIO BRYANT on 04/17/24 ALLERGIES DATE TYPE / CODE NAME / CODE REACTION SEVERITY SOURCE 06/19/2022 DRUG INGREDI/[id number]([facility] D CT) TAMSULOSIN ITCHING [facility] Ce nter 02/08/2022 DRUG INGREDI/[id number](SNOME D CT) PREDNISONE ITCHING [facility] nter ENCOUNTERS ADMIT/DISCHARGE ACCOUNT NUMBER ADMITTING ENCOUNTER CLASS LOCATION SOURCE 10/05/2024/ 5 [id number] MELECIO RAMACHANDRAN Ambulatory [id number] ilding:[facility] [address] [place] [address] 09/25/2024/ 5 [id number] Ambulatory [id number] ilding:[facility] 09/25/2024/ 5 [id number] Ambulatory [id number] ilding:[facility] 09/02/2024 [id number] Ambulatory [id number] ilding:[facility] 09/02/2024 [id number] Ambulatory [id number] ilding:[facility] 07/21/2024/ 5 [id number] Ambulatory [id number] ilding:[facility] 07/14/2024/ [id number] Ambulatory [id number] ilding:[facility] PAYERS ENCOUNTER GUARANTOR PAYER SUBSCRIBER SOURCE 10/05/2024 Primary Insuranc e:MEDICARE A AND BPolicy Number: [id number] Date:6542-88-00Qlrf Name:Abiola Portillo OLEGB: [id number] [address] 10/05/2024 Secondary Insura nce:MMO MEDICARE SUPPLEMENTPolicy Number: [id number] Date:5395-56-01Dmcz Name:Cat Portillo OLEGB: [id number] [address] 09/25/2024 Primary Insuranc e:MEDICARE A AND BPolicy Number: [id number] Date:0799-89-80Vxjn Name:Abiola Portillo GWENDOB: [id number] [address] 09/25/2024 Secondary Insura nce:MMO MEDICARE SUPPLEMENTPolicy Number: [id number] Date:0943-22-54Yrqy Name:Cat Portillo GWENDOB: [id number] [address] 09/25/2024 Primary Insuranc e:MEDICARE A AND BPolicy Number: [id number] Date:5216-18-91Eksu Name:Abiola Portillo GWENDOB: [id number] [address] 09/25/2024 Secondary Insura nce:MMO MEDICARE SUPPLEMENTPolicy Number: [id number] Date:8944-00-95Zrft Name:Cat PEOPLESN Bandar OLEGB: [id number] [address] 09/02/2024 Primary Insuranc e:MEDICARE A AND BPolicy Number: [id number] Date:4048-02-34Xoen Name:Abiola OROPEZADOB: [id number] [address] 09/02/2024 Secondary Insura nce:MMO MEDICARE SUPPLEMENTPolicy Number: [id number] Date:7961-21-57Wfzy Name:Cat OROPEZADOB: [id number] [address] 09/02/2024 Primary Insuranc e:MEDICARE A AND BPolicy Number: [id number] Date:4804-65-67Dbef Name:Abiola OROPEZADOB: [id number] [address] 09/02/2024 Secondary Insura nce:MM MEDICARE SUPPLEMENTPolicy Number: [id number] Date:9789-64-16Yvdj Name:Cat OROPEZADOB: [id number] [address] 07/21/2024 Primary Insuranc e:MEDICARE A AND BPolicy Number: [id number] Date:8699-22-24Bbyy Name:Abiola OROPEZADOB: [id number] [address] 07/21/2024 Secondary Insura nce:MMO MEDICARE SUPPLEMENTPolicy Number: [id number] Date:4099-06-18Wqbd Name:Cat OROPEZADOB: [id number] [address] 07/14/2024 Primary Insuranc e:MEDICARE A AND BPolicy Number: [id number] Date:4111-80-44Vxvo Name:Abiola OROPEZADOB: [id number] [address] 07/14/2024 Secondary Insura nce:MMO MEDICARE SUPPLEMENTPolicy Number: [id number] Date:5641-28-07Goxi Name:Cat MARTINEZ: [id number] [place] [address] [facility]
[2025-02-23 11:50] LABS: Hematocrit 40.4 % (40-54); Hemoglobin 12.9 g/dL (13.0-16.5); Mean Corp Hgb Conc 31.9 g/dL (32-36); Mean Corpuscular Volume 89.8 fL (80-94); Mean Platelet Vol. 10.5 fl (6.2-12.0); Platelet Count 120 K/mm3 (150-450); RBC Distribution Width CV 16.7 % (11.6-14.6); RBC Distribution Width SD 55.4 fl (35.1-43.9); Red Blood Count 4.50 M/mm3 (4.6-6.2); White Blood Count 6.2 K/mm3 (4.4-11.0)
[2025-02-23 13:50] LABS: AST(SGOT) 25 U/L (<=37); Alanine Aminotransfer ALT/SGPT 27 U/L (<=46); Albumin, Serum 4.0 g/dL (3.4-4.8); Alkaline Phosphatase 38 U/L (40-129); Anion Gap 10 (5-15); BUN 21 mg/dL (4-19); BUN/Creat Ratio 20.2 RATIO (10-20); Calcium,Total 9.7 mg/dL (7.6-11.0); Carbon Dioxide 23.9 mmol/L (21.0-32.0); Chloride 104 mmol/L (98-108); Cholesterol 111 mg/dL (<=200); Globulin 2.9 g/dL (2.2-4.2); Glucose 166 mg/dL (70-99); Low Density Lipoprotein Calc. 49 mg/dL; Potassium 4.5 mmol/L (3.3-5.1); Triglycerides 111 mg/dL; Very Low Density Lipoprotein 22 mg/dL (5-40); cholesterol:hdl ratio screen 2.80
== END | disposition home or self-care (01) ==
LOC: LAB 10:49
PROVIDERS: PCP Nurse Practitioner Family; Referring Provider Internal Medicine Cardiovascular Disease; Visit Provider Internal Medicine Cardiovascular Disease
DX: I10 Essential (primary) hypertension (principal); I25.810 Atherosclerosis of coronary artery bypass graft(s) without angina pectoris
CPT/HCPCS: 36415; 80053; 80061; 85027